=== PATIENT | male | born 1975 | race Hispanic/Latino ===

== ENCOUNTER 2016-10-10 15:24 | Emergency (ER) | payer MEDICAID, OTHER ==
[2016-10-10 15:24] VITALS: BMI 24.3
--- NOTE | 2016-10-10 15:55 | C.PDOC ---
History Of Present Illness 41M c/o feeling "a seizure coming on" since yesterday. he says he feels shaky over his whole body and his left arm "feels like it's locking up." he drinks etoh daily "since I was 10" and says his last drink was yesterday "mid day." he will not say why he hasn't drunk today. denies any other sx. Time Seen by Provider: 10/10/16 15:54 Chief Complaint (Nursing): Substance Abuse Past Medical History Vital Signs: Last Vital Signs Temp 98.8 F 10/10/16 19:38 Pulse 81 10/10/16 19:38 Resp 18 10/10/16 19:38 BP 137/81 10/10/16 19:38 Pulse Ox 97 10/10/16 19:38 - Medical History PMH: Fractures, Seizures Denies: HIV, HTN, Sexually Transmitted Disease - [facility] Procedures ALCOHOL DETOXIFICATION (12/30/14) DETOXIFICATION SERVICES FOR SUBSTANCE ABUSE TREATMENT (01/19/16) DRAINAGE OF R PLEURAL CAV WITH DRAIN DEV, PERC APPROACH (05/24/16) DRAINAGE OF RIGHT LOWER LOBE BRONCHUS, ENDO, DIAGN (05/24/16) INFLUENZA VACCINATION (05/29/14) INSERTION OF ENDOTRACHEAL AIRWAY INTO TRACHEA, VIA OPENING (05/24/16) INSERTION OF INFUSION DEV INTO SUP VENA CAVA, PERC APPROACH (05/24/16) INTRODUCTION OF NUTRITIONAL INTO UP GI, VIA OPENING (05/24/16) RESPIRATORY VENTILATION, GREATER THAN 96 CONSECUTIVE HOURS (05/24/16) VACCINATION NEC (05/29/14) Family History: States: Unknown Family Hx - Social History Hx Tobacco Use: Yes Hx Alcohol Use: Yes Hx Substance Use: No (pt denies) - Immunization History Hx Tetanus Toxoid Vaccination: No Hx Influenza Vaccination: Yes Hx Pneumococcal Vaccination: Yes Review Of Systems Except As Marked, All Systems Reviewed And Found Negative. Constitutional: Negative for: Fever, Weakness Eyes: Negative for: Vision Change ENT: Negative for: Throat Pain Cardiovascular: Negative for: Chest Pain Respiratory: Negative for: Cough, Shortness of Breath Gastrointestinal: Negative for: Nausea, Vomiting, Abdominal Pain Neurological: Positive for: Seizures (hx of), Other (tremor). Negative for: Weakness, Numbness Psych: Negative for: Suicidal ideation Physical Exam - Physical Exam Appears: Non-toxic, No Acute Distress Skin: Warm, Dry Head: Atraumatic Eye(s): bilateral: PERRL Oral Mucosa: Moist Lips: No Swelling Neck: Normal ROM Cardiovascular: Rhythm Regular Respiratory: No Decreased Breath Sounds, No Accessory Muscle Use, No Rales, No Rhonchi, No Wheezing Gastrointestinal/Abdominal: Soft, No Tenderness Extremity: No Swelling Pulses: Left Radial: Normal, Right Radial: Normal Neurological/Psych: Oriented x3, Normal Cranial Nerves, No Cerebellar Signs, Normal Motor, Normal Sensation, Other (general mild resting tremor. no focal deficits. ) ED Course And Treatment O2 Sat by Pulse Oximetry: 97 Medical Decision Making Medical Decision Makin the pt is ambulatory with steady gait. his tremor is resolved after the librium. he is comfortable with dc. follow up and return precautions advised. detox resources provided. Disposition - Disposition Disposition: HOME/ ROUTINE Disposition Time: 21:29 Condition: IMPROVED - Clinical Impression Clinical Impression: Alcohol withdrawal
[2016-10-10 19:39] VITALS: RESP 18
[2016-10-10 21:40] VITALS: BP 128/80; PULSE 76; TEMP 98.9
[2016-10-11 13:53] VITALS: O2SAT 97
== END 2016-10-10 21:54 | disposition home or self-care (01) ==
LOC: C.ER 15:24
DX: F10.230 Alcohol dependence with withdrawal, uncomplicated (principal); Y90.9 Presence of alcohol in blood, level not specified

== ENCOUNTER 2017-03-04 20:48 | Inpatient (IN) | payer MEDICAID, OTHER ==
--- NOTE | 2017-03-04 20:56 | C.PDOC ---
History Of Present Illness patient states he feels very shaky , and that his last drinks were a few beers in the morning. has had these symptoms in the past when he does not drink. Denies any suicidal or homicidal ideation. Pleasant , cooperative. Time Seen by Provider: 03/04/17 20:56 History Per: Patient History/Exam Limitations: no limitations Onset/Duration Of Symptoms: Hrs Current Symptoms Are (Timing): Still Present Suicide/Self Injury Attempted (Context): None Modifying Factor(s): Alcohol Severity: Severe Pain Scale Rating Of: 6 Associated Symptoms: denies: Anger, Anxiety, Depression, Suicidal Plan Involuntary Hold By: None Recent travel outside of the [place]: No Additional History Per: Patient Past Medical History Reviewed: Historical Data, Nursing Documentation, Vital Signs Vital Signs: Last Vital Signs Temp 98.9 F 03/04/17 21:53 Pulse 132 H 03/04/17 23:43 Resp 20 03/04/17 23:43 BP 141/95 H 03/04/17 23:43 Pulse Ox 100 03/04/17 23:43 - Medical History PMH: Fractures, Seizures Denies: HIV, HTN, Chronic Kidney Disease, [facility] Procedures ALCOHOL DETOXIFICATION (12/30/14) DETOXIFICATION SERVICES FOR SUBSTANCE ABUSE TREATMENT (01/19/16) DRAINAGE OF R PLEURAL CAV WITH DRAIN DEV, PERC APPROACH (05/24/16) DRAINAGE OF RIGHT LOWER LOBE BRONCHUS, ENDO, DIAGN (05/24/16) INFLUENZA VACCINATION (05/29/14) INSERTION OF ENDOTRACHEAL AIRWAY INTO TRACHEA, VIA OPENING (05/24/16) INSERTION OF INFUSION DEV INTO SUP VENA CAVA, PERC APPROACH (05/24/16) INTRODUCTION OF NUTRITIONAL INTO UP GI, VIA OPENING (05/24/16) RESPIRATORY VENTILATION, GREATER THAN 96 CONSECUTIVE HOURS (05/24/16) VACCINATION NEC (05/29/14) Family History: States: No Known Family Hx - Social History Hx Tobacco Use: Yes Hx Alcohol Use: Yes Hx Substance Use: No (pt denies) - Immunization History Hx Tetanus Toxoid Vaccination: No Hx Influenza Vaccination: Yes Hx Pneumococcal Vaccination: Yes Review Of Systems Constitutional: Negative for: Fever, Chills Eyes: Negative for: Redness ENT: Negative for: Throat Pain Cardiovascular: Negative for: Chest Pain, Palpitations Respiratory: Negative for: Shortness of Breath Gastrointestinal: Negative for: Nausea, Vomiting, Abdominal Pain Genitourinary: Negative for: Dysuria Musculoskeletal: Negative for: Back Pain Skin: Negative for: Rash Neurological: Negative for: Confusion Psych: Positive for: Withdrawal Physical Exam - Physical Exam Appears: In Acute Distress Skin: Warm, Dry Head: Normacephalic Eye(s): bilateral: Normal Inspection Oral Mucosa: Moist Neck: Supple Chest: Symmetrical Cardiovascular: Rhythm Regular (tachy) Respiratory: No Rales, No Rhonchi, No Wheezing Gastrointestinal/Abdominal: Soft, No Tenderness, No Distention Back: No CVA Tenderness Extremity: No Tenderness Extremity: Bilateral: Atraumatic, Normal Color And Temperature, Normal ROM Pulses: Left Dorsalis Pedis: Normal, Right Dorsalis Pedis: Normal Neurological/Psych: Oriented x3, Normal Speech, Normal Cognition, Other (mild resting tremor, chronic) Gait: Steady ED Course And Treatment - Laboratory Results Result Diagrams: 03/04/17 21:13 03/04/17 21:13 ECG: Interpreted By Me, Viewed By Me ECG Rhythm: Sinus Tachycardia (135), Nonspecific Changes O2 Sat by Pulse Oximetry: 95 Pulse Ox Interpretation: Normal - Radiology CXR: Interpreted by Me, Viewed By Me CXR Interpretation: Yes: Infiltrates (rll). No: Fracture, Pnemothorax Progress Note: spoke with dr jo. will come and see the pt in the ed. joana at bedside Critical Care Time - Critical Care Note Total Time (in mins): 30 Documented critical care: time excludes all time spent performing seperately billable procedures. ED OBSERVATION Date of observation admission: 03/04/17 Time of observation admission: 22:29 - Observation admission statement Patient is being placed in observation because:: acute alcohol intoxication - Goals of Observation Goals of observation are:: sobriety - Progress Note Progress Note: 03/04/17 22:29 vitals stable Disposition Discussed With DrGiorgio: Otis Ramos Comment: accepted the pt on his service and took over the care at 11:21 PM Doctor Will See Patient In The: ED Counseled Patient/Family Regarding: Studies Performed, Diagnosis - Disposition Disposition: HOSPITALIZED Disposition Time: 20:56 Condition: CRITICAL - Clinical Impression Clinical Impression: Pneumonia, Sepsis, Delirium tremens, Thrombocytopenia Decision To Admit - . Patient Diagnosis: Pneumonia, Sepsis, Delirium tremens, Thrombocytopenia
[2017-03-04 20:57] VITALS: BMI 24.4
[2017-03-04] MEDS ORDERED: Sodium Chloride 0.9% 1,000 ML IV ONE ×3 (20:57→23:09)
[2017-03-04] MEDS ORDERED: Sodium Chloride 0.9% 1,000 ML ONE ×3 (21:10→23:30)
[2017-03-04 21:15] LABS: BASO # 0.2 K/uL (0.0-0.2); BASO % 1.2 % (0.0-2.0); HEMATOCRIT 35.3 % (35.0-51.0); LYMPH # 0.2 K/uL (1.0-4.3); LYMPH % 1.4 % (20.0-40.0); MEAN CELL VOLUME 96.2 fL (80.0-94.0); MEAN CORPUSCULAR HEMOGLOBIN 32.5 pg (27.0-31.0); MEAN CORPUSCULAR HGB CONC 33.8 g/dL (33.0-37.0); MEAN PLATELET VOLUME 8.8 fL (7.2-11.7); MONO # 0.7 K/uL (0.0-0.8); MONO % 4.2 % (0.0-10.0); RED CELL DISTRIBUTION WIDTH 14.2 % (11.5-14.5); WHITE BLOOD COUNT 16.4 K/uL (4.8-10.8)
[2017-03-04 21:23] LABS: PLATELET COUNT 46 K/uL (130-400)
[2017-03-04 21:24] LABS: CHLORIDE 94 mmol/L (98-107); POTASSIUM 3.7 mmol/L (3.6-5.2); SODIUM 130 mmol/L (132-148)
[2017-03-04 21:26] LABS: GFR AFRICAN-AMERICAN > 60
[2017-03-04 21:27] LABS: ALB/GLOB RATIO 0.9 (1.0-2.1); ALKALINE PHOSPHATASE 172 U/L (38-126); ALT/SGPT 42 U/L (21-72); AST/SGOT 62 U/L (17-59); BILIRUBIN,TOTAL 0.7 mg/dL (0.2-1.3); BLOOD UREA NITROGEN 3 mg/dL (9-20); CALCIUM 8.6 mg/dl (8.6-10.4); CARBON DIOXIDE 14 mmol/L (22-30); GLUCOSE,RANDOM 114 mg/dL (75-110); TOTAL PROTEIN 7.5 g/dL (6.3-8.3)
[2017-03-04] MEDS ORDERED: Piperacillin/Tazobact 3.375 gm 100 ML IVPB STA (21:27)
[2017-03-04 21:28] LABS: ALCOHOL SERUM 175 mg/dl (0-10)
[2017-03-04] MEDS ORDERED: Piperacillin/Tazobact 3.375 gm 100 ML IVPB ONE (21:36)
[2017-03-04 21:49] LABS: NEUTROPHIL 93 % (50-75); TOTAL CELLS COUNTED 100
[2017-03-04 21:50] LABS: LARGE PLATELETS PRESENT
[2017-03-04 23:06] LABS: VENOUS BLOOD GAS PCO2 29 mmHg (40-60); VENOUS BLOOD PH 7.41 (7.32-7.43)
[2017-03-04] MEDS ORDERED: Vancomycin 1 GM 1 GM/250 ML BAG IVPB SCH (23:15)
[2017-03-04 23:43] LABS: RBC URINE < 1 /hpf (0-3); URINE BILIRUBIN NEGATIVE (NEGATIVE); URINE BLOOD 1+ (NEGATIVE); URINE COLOR Yellow (YELLOW); URINE GLUCOSE (UA) NORMAL (Normal); URINE KETONE NEGATIVE (NEGATIVE); URINE LEUKOCYTE ESTERASE NEG Leu/uL (Negative); URINE PROTEIN 1+ mg/dL (NEGATIVE); URINE UROBILINOGEN NORMAL mg/dL (0.2-1.0); WBC URINE < 1 /hpf (0-5)
[2017-03-05] MEDS ORDERED: Folic Acid 1 MG, Thiamine 100 MG, Multivitamin (MVI) 10 ML in Dextrose 5% In Water 1,00... IV ONE (00:30)
[2017-03-05 00:58] LABS: PHOSPHOROUS 1.8 mg/dL (2.5-4.5)
[2017-03-05 01:00] LABS: MAGNESIUM 0.5 mg/dL (1.6-2.3)
[2017-03-05] MEDS: Sodium Chloride 0.9% 1,000 ML IV SCH ×3 (01:23→20:30)
[2017-03-05] MEDS: Magnesium Sulfate 1 gm in D5W 1 GM/100 ML BAG IVPB SCH ×6 (01:23→15:27)
[2017-03-05 06:26] LABS: ALB/GLOB RATIO 0.9 (1.0-2.1); ALKALINE PHOSPHATASE 139 U/L (38-126); ALT/SGPT 40 U/L (21-72); AST/SGOT 80 U/L (17-59); BILIRUBIN,TOTAL 0.7 mg/dL (0.2-1.3); CALCIUM 8.2 mg/dl (8.6-10.4); CARBON DIOXIDE 18 mmol/L (22-30); CHLORIDE 101 mmol/L (98-107); GFR AFRICAN-AMERICAN > 60; GLUCOSE,RANDOM 91 mg/dL (75-110); MAGNESIUM 1.1 mg/dL (1.6-2.3); PHOSPHOROUS 3.2 mg/dL (2.5-4.5); POTASSIUM 3.5 mmol/L (3.6-5.2); SODIUM 133 mmol/L (132-148); TOTAL PROTEIN 6.4 g/dL (6.3-8.3)
[2017-03-05 06:28] LABS: BASO % 0.2 % (0.0-2.0); LYMPH # 0.5 K/uL (1.0-4.3); LYMPH % 2.4 % (20.0-40.0); MEAN CELL VOLUME 95.9 fL (80.0-94.0); MEAN CORPUSCULAR HEMOGLOBIN 31.9 pg (27.0-31.0); MEAN CORPUSCULAR HGB CONC 33.3 g/dL (33.0-37.0); MEAN PLATELET VOLUME 9.7 fL (7.2-11.7); MONO # 0.9 K/uL (0.0-0.8); MONO % 4.1 % (0.0-10.0); PLATELET COUNT 37 K/uL (130-400)
[2017-03-05 06:34] LABS: BLOOD UREA NITROGEN 2 mg/dL (9-20)
[2017-03-05 08:41] LABS: NEUTROPHIL 69 % (50-75); TOTAL CELLS COUNTED 100
[2017-03-05] MEDS ORDERED: Piperacillin/Tazobact 3.375 GM in Sodium Chloride 100 ML IVPB SCH (10:30)
--- NOTE | 2017-03-05 10:42 | RAD ---
PROCEDURE: CHEST RADIOGRAPH, 1 VIEW HISTORY: fever COMPARISON: Comparison made with prior chest radiograph 06/14/[address] scan chest 06/12/2016. FINDINGS: LUNGS: Residual patchy atelectasis and or infiltrate right lower lobe. Questionable small right-sided effusion. Follow-up CT scan of chest could be performed further evaluation. Suspect mild left basilar atelectasis or scarring however developing left lower lobe infiltrate to be excluded with followup studies. PLEURA: No apparent pneumothorax CARDIOVASCULAR: Normal. OSSEOUS STRUCTURES: No significant abnormalities. VISUALIZED UPPER ABDOMEN: Normal. OTHER FINDINGS: None. IMPRESSION: Residual patchy atelectasis and or infiltrate right lower lobe. Questionable small right-sided effusion. Follow-up scan chest recommended. . Suspect mild left basilar atelectasis or scarring however developing left lower lobe infiltrate to be excluded with followup studies. Note report placed PA review folder followup
[2017-03-05] MEDS: Piperacill/Tazo 3.375gm in Dex 3.375 GM/50 ML BAG IVPB SCH ×3 (12:10→22:00)
--- NOTE | 2017-03-05 13:22 | RAD ---
HISTORY: sepsis COMPARISON: Comparison chest 03/04/2017 at 21:14 hours FINDINGS: LUNGS: Current study reveals interval progression patchy infiltrate in the right mid to lower lung field. . Questionable small right effusion. Suspect minor left basilar atelectasis however developing left lower lobe infiltrate could be excluded followup radiographs PLEURA: As above. There is a thin linear - curvilinear density overlying the right lung apex and may represent of overlying clothing/bed sheet artifact. CARDIOVASCULAR: Normal. OSSEOUS STRUCTURES: No significant abnormalities. VISUALIZED UPPER ABDOMEN: Normal. OTHER FINDINGS: None. IMPRESSION: Interval progression patchy infiltrate in the right mid to lower lung field. . Questionable small right effusion. Suspect minor left basilar atelectasis however developing left lower lobe infiltrate could be excluded followup radiographs. ICU MD Terrance tesfaye informed these findings at approximately 1:15 p.m. with written down and read back verification. Follow-up CT scan could be performed for further evaluation if necessary.
--- NOTE | 2017-03-05 13:34 | CP.PCM.HP ---
Past Patient History - Infectious Disease Hx of Infectious Diseases: None - Past Medical History & Family History Past Medical History?: Yes - Past Social History Smoking Status: Current Some Days Smoker - CARDIAC Hx Hypertension: No - PULMONARY Hx Respiratory Disorders: No - NEUROLOGICAL Hx Neurological Disorder: Yes Hx Seizures: Yes - HEENT Hx HEENT Problems: No - RENAL Hx Chronic Kidney Disease: No - ENDOCRINE/METABOLIC Hx Endocrine Disorders: No - HEMATOLOGICAL/ONCOLOGICAL Hx Blood Disorders: No - INTEGUMENTARY Hx Dermatological Problems: No - MUSCULOSKELETAL/RHEUMATOLOGICAL Hx Musculoskeletal Disorders: Yes Hx Falls: Yes Hx Fractures: Yes - GASTROINTESTINAL Hx Gastrointestinal Disorders: No - GENITOURINARY/GYNECOLOGICAL Hx Genitourinary Disorders: No - PSYCHIATRIC Hx Substance Use: No - SURGICAL HISTORY Hx Surgeries: Yes (R thumb repair ) Hx Orthopedic Surgery: Yes (CLAVICLE, ARM) Other/Comment: EYE SOCKET FX REPAIRED WITH SCREWS - ANESTHESIA Hx Anesthesia: Yes Hx Anesthesia Reactions: No Hx Malignant Hyperthermia: No Has any member of the family had a problem w/ anesthesia?: No Meds Allergies/Adverse Reactions: Allergies Allergy/AdvReac Type Severity Reaction Status Date / Time No Known Allergies Allergy Verified 01/20/16 17:11 Physical Exam - Constitutional Appears: Well - Head Exam Head Exam: ATRAUMATIC, NORMAL INSPECTION, NORMOCEPHALIC - Eye Exam Eye Exam: EOMI, Normal appearance, PERRL Pupil Exam: NORMAL ACCOMODATION, PERRL - ENT Exam ENT Exam: Mucous Membranes Moist, Normal Exam - Neck Exam Neck exam: Positive for: Normal Inspection - Respiratory Exam Respiratory Exam: Decreased Breath Sounds - Cardiovascular Exam Cardiovascular Exam: REGULAR RHYTHM, +S1, +S2 - GI/Abdominal Exam GI & Abdominal Exam: Diminished Bowel Sounds, Soft - Rectal Exam Rectal Exam: Deferred Results - Vital Signs Recent Vital Signs: Last Vital Signs Temp 98.5 F 03/05/17 12:00 Pulse 105 H 03/05/17 12:01 Resp 20 03/05/17 12:01 BP 137/90 03/05/17 12:01 Pulse Ox 98 03/05/17 12:01 - Labs Result Diagrams: 03/05/17 06:07 03/05/17 06:06 Labs: Laboratory Results - last 24 hr 03/04/17 03/04/17 03/05/17 23:37 23:37 00:32 WBC RBC Hgb Hct MCV MCH MCHC RDW Plt Count MPV Neut % (Auto) Lymph % (Auto) [place] % (Auto) Eos % (Auto) Baso % (Auto) Neut # Lymph # [place] # Eos # Baso # Neutrophils % (Manual) Band Neutrophils % Lymphocytes % (Manual) Monocytes % (Manual) Platelet Estimate RBC Morphology Sodium Potassium Chloride Carbon Dioxide Anion Gap BUN Creatinine Est GFR ( Amer) Est GFR (Non-Af Amer) POC Glucose (mg/dL) Random Glucose Lactic Acid Calcium Phosphorus 1.8 L Magnesium 0.5 L* D Total Bilirubin AST ALT Alkaline Phosphatase Total Protein Albumin Globulin Albumin/Globulin Ratio Urine Color Yellow Urine Clarity Clear Urine pH 5.0 Ur Specific [place] 1.006 Urine Protein 1+ H Urine Glucose (UA) Normal Urine Ketones Negative Urine Blood 1+ H Urine Nitrate Negative Urine Bilirubin Negative Urine Urobilinogen Normal Ur Leukocyte Esterase Neg Urine WBC (Auto) < 1 Urine RBC (Auto) < 1 Ur Squamous Epith Cells < 1 Urine Opiates Screen Negative Urine Methadone Screen Negative Ur Barbiturates Screen Negative Ur Phencyclidine Scrn Negative Ur Amphetamines Screen Negative U Benzodiazepines Scrn Negative U Oth Cocaine Metabols Negative U Cannabinoids Screen Negative 03/05/17 03/05/17 03/05/17 02:16 06:06 06:07 WBC 22.0 H RBC 3.55 L Hgb 11.3 L Hct 34.0 L MCV 95.9 H MCH 31.9 H MCHC 33.3 RDW 14.0 Plt Count 37 L MPV 9.7 Neut % (Auto) 93.3 H Lymph % (Auto) 2.4 L [place] % (Auto) 4.1 Eos % (Auto) 0.0 Baso % (Auto) 0.2 Neut # 20.5 H Lymph # 0.5 L [place] # 0.9 H Eos # 0.0 Baso # 0.0 Neutrophils % (Manual) 69 Band Neutrophils % 27 H* Lymphocytes % (Manual) 2 L Monocytes % (Manual) 2 Platelet Estimate Decreased L RBC Morphology Normal Sodium 133 Potassium 3.5 L Chloride 101 Carbon Dioxide 18 L Anion Gap 18 BUN 2 L Creatinine 0.6 L Est GFR ( Amer) > 60 Est GFR (Non-Af Amer) > 60 POC Glucose (mg/dL) Random Glucose 91 Lactic Acid 3.8 H Calcium 8.2 L Phosphorus 3.2 Magnesium 1.1 L Total Bilirubin 0.7 AST 80 H D ALT 40 Alkaline Phosphatase 139 H Total Protein 6.4 Albumin 3.0 L Globulin 3.4 Albumin/Globulin Ratio 0.9 L Urine Color Urine Clarity Urine pH Ur Specific [place] Urine Protein Urine Glucose (UA) Urine Ketones Urine Blood Urine Nitrate Urine Bilirubin Urine Urobilinogen Ur Leukocyte Esterase Urine WBC (Auto) Urine RBC (Auto) Ur Squamous Epith Cells Urine Opiates Screen Urine Methadone Screen Ur Barbiturates Screen Ur Phencyclidine Scrn Ur Amphetamines Screen U Benzodiazepines Scrn U Oth Cocaine Metabols U Cannabinoids Screen 03/05/17 03/05/17 06:20 12:08 WBC RBC Hgb Hct MCV MCH MCHC RDW Plt Count MPV Neut % (Auto) Lymph % (Auto) [place] % (Auto) Eos % (Auto) Baso % (Auto) Neut # Lymph # [place] # Eos # Baso # Neutrophils % (Manual) Band Neutrophils % Lymphocytes % (Manual) Monocytes % (Manual) Platelet Estimate RBC Morphology Sodium Potassium Chloride Carbon Dioxide Anion Gap BUN Creatinine Est GFR ( Amer) Est GFR (Non-Af Amer) POC Glucose (mg/dL) 101 108 Random Glucose Lactic Acid Calcium Phosphorus Magnesium Total Bilirubin AST ALT Alkaline Phosphatase Total Protein Albumin Globulin Albumin/Globulin Ratio Urine Color Urine Clarity Urine pH Ur Specific [place] Urine Protein Urine Glucose (UA) Urine Ketones Urine Blood Urine Nitrate Urine Bilirubin Urine Urobilinogen Ur Leukocyte Esterase Urine WBC (Auto) Urine RBC (Auto) Ur Squamous Epith Cells Urine Opiates Screen Urine Methadone Screen Ur Barbiturates Screen Ur Phencyclidine Scrn Ur Amphetamines Screen U Benzodiazepines Scrn U Oth Cocaine Metabols U Cannabinoids Screen
--- NOTE | 2017-03-05 14:56 | CP.CCUPN ---
<AlejandrapatriceVenice rayaGiorgio - Last Filed: 03/05/17 14:53> CCU Subjective - Physician Review Subjective (Free Text): Patient was seen and examined at bedside in the morning. Patient was in no acute distress and was lethargic. Patient was in and out of sleep, and mumbling in response to questions. Patient reports he vomits daily. Patient denies having chest pain, abdominal pain, fevers, shortness of breath, nausea, and diarrhea. As per nurse, patient is having diarrhea. 03/05/17 14:53 CCU Objective - Vital Signs / Intake & Output Vital Signs (Last 4 hours): Vital Signs Temp Pulse Resp BP Pulse Ox 03/05/17 12:01 105 H 20 137/90 98 03/05/17 12:00 98.5 F 102 H 20 96 03/05/17 11:01 99 H 21 145/100 H 96 03/05/17 11:00 106 H 20 97 Intake and Output (Last 8hrs): Intake & Output 03/04/17 03/05/17 03/05/17 22:59 06:59 14:59 Intake Total 1350 900 Output Total 1900 Balance -550 900 Weight 156 lb 15.506 oz Intake: Intake, IV Amount 1350 900 Left Forearm 600 600 Left Forearm Y-site 300 300 Right Hand 450 Output: Urine 1900 Condom 1600 Urine, Voided 300 Other: Voiding Method Urinal # Voids Condom 160 Urine, Voided 1 # Bowel Movements 1 1 - Physical Exam Physical Exam Limitations: Positive for: Other (lethargic) Head: Positive for: Atraumatic, Normocephalic Extroacular Muscles: Positive for: EOMI Mouth: Positive for: Moist Mucous Membranes Respiratory/Chest: Positive for: Decreased Breath Sounds. Negative for: Clear to Auscultation, Wheezes, Rales Cardiovascular: Positive for: Normal S1, S2, Tachycardic. Negative for: Murmurs Abdomen: Positive for: Normal Bowel Sounds. Negative for: Tenderness, Distention Upper Extremity: Positive for: Normal Inspection. Negative for: Edema Lower Extremity: Positive for: Normal Inspection, NORMAL PULSES. Negative for: Edema Skin: Positive for: Warm, Dry, Normal Color Psychiatric: Positive for: Lethargic. Negative for: Alert, Oriented x 3 ( oriented to place, not time), Normal Concentration - Medications Active Medications: Active Medications Generic Name Dose Route Start Last Admin Trade Name Freq PRN Reason Stop Dose Admin Famotidine 20 mg 03/05/17 10:00 Pepcid IVP Q12 XAVI Folic Acid 1 mg/ Thiamine HCl 1,011.2 mls @ 50 mls/hr 03/05/17 00:30 01:30 100 mg/ Multivitamins/Vitamin IV 03/05/17 20:43 50 mls/hr C 10 ml/ Dextrose .[id number] ONE Administration Sodium Chloride 1,000 mls @ 100 mls/hr 03/05/17 00:30 03/05/17 01:23 Sodium Chloride 0.9% IV 100 mls/hr .Q10H XAVI Administration Vancomycin HCl 1,000 mg/ 250 mls @ 166.6 mls/hr 03/05/17 00:30 03/05/17 00:30 Sodium Chloride IVPB Not Given Q12H XAVI Piperacillin Sod/Tazobactam Sod 3.375 gm in 50 mls @ 100 mls/hr 03/05/17 11: 00 Zosyn 3.375 Gm Iv Premix IVPB Q6H XAVI Lorazepam 2 mg 03/05/17 00:18 03/05/17 06:00 Ativan IVP 2 mg Q2 PRN Administration Anxiety - Patient Studies Lab Studies: Lab Studies 03/05/17 03/05/17 03/05/17 Range/Units 12:08 06:20 06:07 WBC 22.0 H (4.8-10.8) K/uL RBC 3.55 L (4.40-5.90) Mil/uL Hgb 11.3 L (12.0-18.0) g/dL Hct 34.0 L (35.0-51.0) % MCV 95.9 H (80.0-94.0) fL MCH 31.9 H (27.0-31.0) pg MCHC 33.3 (33.0-37.0) g/dL RDW 14.0 (11.5-14.5) % Plt Count 37 L (130-400) K/uL MPV 9.7 (7.2-11.7) fL Neut % (Auto) 93.3 H (50.0-75.0) % Lymph % (Auto) 2.4 L (20.0-40.0) % [place] % (Auto) 4.1 (0.0-10.0) % Eos % (Auto) 0.0 (0.0-4.0) % Baso % (Auto) 0.2 (0.0-2.0) % Neut # 20.5 H (1.8-7.0) K/uL Lymph # 0.5 L (1.0-4.3) K/uL [place] # 0.9 H (0.0-0.8) K/uL Eos # 0.0 (0.0-0.7) K/uL Baso # 0.0 (0.0-0.2) K/uL Neutrophils % (Manual) 69 (50-75) % Band Neutrophils % 27 H* (0-2) % Lymphocytes % (Manual) 2 L (20-40) % Monocytes % (Manual) 2 (0-10) % Platelet Estimate Decreased L (NORMAL) RBC Morphology Normal Sodium (132-148) mmol/L Potassium (3.6-5.2) mmol/L Chloride (98-107) mmol/L Carbon Dioxide (22-30) mmol/L Anion Gap (10-20) BUN (9-20) mg/dL Creatinine (0.8-1.5) MG/DL Est GFR ( Amer) Est GFR (Non-Af Amer) POC Glucose (mg/dL) 108 101 (65-110) mg/dL Random Glucose (75-110) mg/dL Lactic Acid (0.7-2.1) mmol/L Calcium (8.6-10.4) mg/dl Phosphorus (2.5-4.5) mg/dL Magnesium (1.6-2.3) mg/dL Total Bilirubin (0.2-1.3) mg/dL AST (17-59) U/L ALT (21-72) U/L Alkaline Phosphatase (38-126) U/L Total Protein (6.3-8.3) g/dL Albumin (3.5-5.0) g/dL Globulin (2.2-3.9) gm/dL Albumin/Globulin Ratio (1.0-2.1) Urine Color (YELLOW) Urine Clarity (Clear) Urine pH (5.0-8.0) Ur Specific [place] (1.003-1.030) Urine Protein (NEGATIVE) mg/dL Urine Glucose (UA) (Normal) mg/dL Urine Ketones (NEGATIVE) mg/dL Urine Blood (NEGATIVE) Urine Nitrate (NEGATIVE) Urine Bilirubin (NEGATIVE) Urine Urobilinogen (0.2-1.0) mg/dL Ur Leukocyte Esterase (Negative) [place]/uL Urine WBC (Auto) (0-5) /hpf Urine RBC (Auto) (0-3) /hpf Ur Squamous Epith Cells (0-5) /hpf Urine Opiates Screen (NEGATIVE) Urine Methadone Screen (NEGATIVE) Ur Barbiturates Screen (NEGATIVE) Ur Phencyclidine Scrn (NEGATIVE) Ur Amphetamines Screen (NEGATIVE) U Benzodiazepines Scrn (NEGATIVE) U Oth Cocaine Metabols (NEGATIVE) U Cannabinoids Screen (NEGATIVE) 03/05/17 03/05/17 03/05/17 Range/Units 06:06 02:16 00:32 WBC (4.8-10.8) K/uL RBC (4.40-5.90) Mil/uL Hgb (12.0-18.0) g/dL Hct (35.0-51.0) % MCV (80.0-94.0) fL MCH (27.0-31.0) pg MCHC (33.0-37.0) g/dL RDW (11.5-14.5) % Plt Count (130-400) K/uL MPV (7.2-11.7) fL Neut % (Auto) (50.0-75.0) % Lymph % (Auto) (20.0-40.0) % [place] % (Auto) (0.0-10.0) % Eos % (Auto) (0.0-4.0) % Baso % (Auto) (0.0-2.0) % Neut # (1.8-7.0) K/uL Lymph # (1.0-4.3) K/uL [place] # (0.0-0.8) K/uL Eos # (0.0-0.7) K/uL Baso # (0.0-0.2) K/uL Neutrophils % (Manual) (50-75) % Band Neutrophils % (0-2) % Lymphocytes % (Manual) (20-40) % Monocytes % (Manual) (0-10) % Platelet Estimate (NORMAL) RBC Morphology Sodium 133 (132-148) mmol/L Potassium 3.5 L (3.6-5.2) mmol/L Chloride 101 (98-107) mmol/L Carbon Dioxide 18 L (22-30) mmol/L Anion Gap 18 (10-20) BUN 2 L (9-20) mg/dL Creatinine 0.6 L (0.8-1.5) MG/DL Est GFR ( Amer) > 60 Est GFR (Non-Af Amer) > 60 POC Glucose (mg/dL) (65-110) mg/dL Random Glucose 91 (75-110) mg/dL Lactic Acid 3.8 H (0.7-2.1) mmol/L Calcium 8.2 L (8.6-10.4) mg/dl Phosphorus 3.2 1.8 L (2.5-4.5) mg/dL Magnesium 1.1 L 0.5 L* D (1.6-2.3) mg/dL Total Bilirubin 0.7 (0.2-1.3) mg/dL AST 80 H D (17-59) U/L ALT 40 (21-72) U/L Alkaline Phosphatase 139 H (38-126) U/L Total Protein 6.4 (6.3-8.3) g/dL Albumin 3.0 L (3.5-5.0) g/dL Globulin 3.4 (2.2-3.9) gm/dL Albumin/Globulin Ratio 0.9 L (1.0-2.1) Urine Color (YELLOW) Urine Clarity (Clear) Urine pH (5.0-8.0) Ur Specific [place] (1.003-1.030) Urine Protein (NEGATIVE) mg/dL Urine Glucose (UA) (Normal) mg/dL Urine Ketones (NEGATIVE) mg/dL Urine Blood (NEGATIVE) Urine Nitrate (NEGATIVE) Urine Bilirubin (NEGATIVE) Urine Urobilinogen (0.2-1.0) mg/dL Ur Leukocyte Esterase (Negative) [place]/uL Urine WBC (Auto) (0-5) /hpf Urine RBC (Auto) (0-3) /hpf Ur Squamous Epith Cells (0-5) /hpf Urine Opiates Screen (NEGATIVE) Urine Methadone Screen (NEGATIVE) Ur Barbiturates Screen (NEGATIVE) Ur Phencyclidine Scrn (NEGATIVE) Ur Amphetamines Screen (NEGATIVE) U Benzodiazepines Scrn (NEGATIVE) U Oth Cocaine Metabols (NEGATIVE) U Cannabinoids Screen (NEGATIVE) 03/04/17 03/04/17 Range/Units 23:37 23:37 WBC (4.8-10.8) K/uL RBC (4.40-5.90) Mil/uL Hgb (12.0-18.0) g/dL Hct (35.0-51.0) % MCV (80.0-94.0) fL MCH (27.0-31.0) pg MCHC (33.0-37.0) g/dL RDW (11.5-14.5) % Plt Count (130-400) K/uL MPV (7.2-11.7) fL Neut % (Auto) (50.0-75.0) % Lymph % (Auto) (20.0-40.0) % [place] % (Auto) (0.0-10.0) % Eos % (Auto) (0.0-4.0) % Baso % (Auto) (0.0-2.0) % Neut # (1.8-7.0) K/uL Lymph # (1.0-4.3) K/uL [place] # (0.0-0.8) K/uL Eos # (0.0-0.7) K/uL Baso # (0.0-0.2) K/uL Neutrophils % (Manual) (50-75) % Band Neutrophils % (0-2) % Lymphocytes % (Manual) (20-40) % Monocytes % (Manual) (0-10) % Platelet Estimate (NORMAL) RBC Morphology Sodium (132-148) mmol/L Potassium (3.6-5.2) mmol/L Chloride (98-107) mmol/L Carbon Dioxide (22-30) mmol/L Anion Gap (10-20) BUN (9-20) mg/dL Creatinine (0.8-1.5) MG/DL Est GFR ( Amer) Est GFR (Non-Af Amer) POC Glucose (mg/dL) (65-110) mg/dL Random Glucose (75-110) mg/dL Lactic Acid (0.7-2.1) mmol/L Calcium (8.6-10.4) mg/dl Phosphorus (2.5-4.5) mg/dL Magnesium (1.6-2.3) mg/dL Total Bilirubin (0.2-1.3) mg/dL AST (17-59) U/L ALT (21-72) U/L Alkaline Phosphatase (38-126) U/L Total Protein (6.3-8.3) g/dL Albumin (3.5-5.0) g/dL Globulin (2.2-3.9) gm/dL Albumin/Globulin Ratio (1.0-2.1) Urine Color Yellow (YELLOW) Urine Clarity Clear (Clear) Urine pH 5.0 (5.0-8.0) Ur Specific [place] 1.006 (1.003-1.030) Urine Protein 1+ H (NEGATIVE) mg/dL Urine Glucose (UA) Normal (Normal) mg/dL Urine Ketones Negative (NEGATIVE) mg/dL Urine Blood 1+ H (NEGATIVE) Urine Nitrate Negative (NEGATIVE) Urine Bilirubin Negative (NEGATIVE) Urine Urobilinogen Normal (0.2-1.0) mg/dL Ur Leukocyte Esterase Neg (Negative) [place]/uL Urine WBC (Auto) < 1 (0-5) /hpf Urine RBC (Auto) < 1 (0-3) /hpf Ur Squamous Epith Cells < 1 (0-5) /hpf Urine Opiates Screen Negative (NEGATIVE) Urine Methadone Screen Negative (NEGATIVE) Ur Barbiturates Screen Negative (NEGATIVE) Ur Phencyclidine Scrn Negative (NEGATIVE) Ur Amphetamines Screen Negative (NEGATIVE) U Benzodiazepines Scrn Negative (NEGATIVE) U Oth Cocaine Metabols Negative (NEGATIVE) U Cannabinoids Screen Negative (NEGATIVE) Laboratory Results - last 24 hr 03/04/17 03/04/17 03/05/17 23:37 23:37 00:32 WBC RBC Hgb Hct MCV MCH MCHC RDW Plt Count MPV Neut % (Auto) Lymph % (Auto) [place] % (Auto) Eos % (Auto) Baso % (Auto) Neut # Lymph # [place] # Eos # Baso # Neutrophils % (Manual) Band Neutrophils % Lymphocytes % (Manual) Monocytes % (Manual) Platelet Estimate RBC Morphology Sodium Potassium Chloride Carbon Dioxide Anion Gap BUN Creatinine Est GFR ( Amer) Est GFR (Non-Af Amer) POC Glucose (mg/dL) Random Glucose Lactic Acid Calcium Phosphorus 1.8 L Magnesium 0.5 L* D Total Bilirubin AST ALT Alkaline Phosphatase Total Protein Albumin Globulin Albumin/Globulin Ratio Urine Color Yellow Urine Clarity Clear Urine pH 5.0 Ur Specific [place] 1.006 Urine Protein 1+ H Urine Glucose (UA) Normal Urine Ketones Negative Urine Blood 1+ H Urine Nitrate Negative Urine Bilirubin Negative Urine Urobilinogen Normal Ur Leukocyte Esterase Neg Urine WBC (Auto) < 1 Urine RBC (Auto) < 1 Ur Squamous Epith Cells < 1 Urine Opiates Screen Negative Urine Methadone Screen Negative Ur Barbiturates Screen Negative Ur Phencyclidine Scrn Negative Ur Amphetamines Screen Negative U Benzodiazepines Scrn Negative U Oth Cocaine Metabols Negative U Cannabinoids Screen Negative 03/05/17 03/05/17 03/05/17 02:16 06:06 06:07 WBC 22.0 H RBC 3.55 L Hgb 11.3 L Hct 34.0 L MCV 95.9 H MCH 31.9 H MCHC 33.3 RDW 14.0 Plt Count 37 L MPV 9.7 Neut % (Auto) 93.3 H Lymph % (Auto) 2.4 L [place] % (Auto) 4.1 Eos % (Auto) 0.0 Baso % (Auto) 0.2 Neut # 20.5 H Lymph # 0.5 L [place] # 0.9 H Eos # 0.0 Baso # 0.0 Neutrophils % (Manual) 69 Band Neutrophils % 27 H* Lymphocytes % (Manual) 2 L Monocytes % (Manual) 2 Platelet Estimate Decreased L RBC Morphology Normal Sodium 133 Potassium 3.5 L Chloride 101 Carbon Dioxide 18 L Anion Gap 18 BUN 2 L Creatinine 0.6 L Est GFR ( Amer) > 60 Est GFR (Non-Af Amer) > 60 POC Glucose (mg/dL) Random Glucose 91 Lactic Acid 3.8 H Calcium 8.2 L Phosphorus 3.2 Magnesium 1.1 L Total Bilirubin 0.7 AST 80 H D ALT 40 Alkaline Phosphatase 139 H Total Protein 6.4 Albumin 3.0 L Globulin 3.4 Albumin/Globulin Ratio 0.9 L Urine Color Urine Clarity Urine pH Ur Specific [place] Urine Protein Urine Glucose (UA) Urine Ketones Urine Blood Urine Nitrate Urine Bilirubin Urine Urobilinogen Ur Leukocyte Esterase Urine WBC (Auto) Urine RBC (Auto) Ur Squamous Epith Cells Urine Opiates Screen Urine Methadone Screen Ur Barbiturates Screen Ur Phencyclidine Scrn Ur Amphetamines Screen U Benzodiazepines Scrn U Oth Cocaine Metabols U Cannabinoids Screen 03/05/17 03/05/17 06:20 12:08 WBC RBC Hgb Hct MCV MCH MCHC RDW Plt Count MPV Neut % (Auto) Lymph % (Auto) [place] % (Auto) Eos % (Auto) Baso % (Auto) Neut # Lymph # [place] # Eos # Baso # Neutrophils % (Manual) Band Neutrophils % Lymphocytes % (Manual) Monocytes % (Manual) Platelet Estimate RBC Morphology Sodium Potassium Chloride Carbon Dioxide Anion Gap BUN Creatinine Est GFR ( Amer) Est GFR (Non-Af Amer) POC Glucose (mg/dL) 101 108 Random Glucose Lactic Acid Calcium Phosphorus Magnesium Total Bilirubin AST ALT Alkaline Phosphatase Total Protein Albumin Globulin Albumin/Globulin Ratio Urine Color Urine Clarity Urine pH Ur Specific [place] Urine Protein Urine Glucose (UA) Urine Ketones Urine Blood Urine Nitrate Urine Bilirubin Urine Urobilinogen Ur Leukocyte Esterase Urine WBC (Auto) Urine RBC (Auto) Ur Squamous Epith Cells Urine Opiates Screen Urine Methadone Screen Ur Barbiturates Screen Ur Phencyclidine Scrn Ur Amphetamines Screen U Benzodiazepines Scrn U Oth Cocaine Metabols U Cannabinoids Screen Fingerstick Blood Sugar Results: 108 Review of Systems - Constitutional Constitutional: absent: Fever - Cardiovascular Cardiovascular: absent: Chest Pain, Dyspnea - Respiratory Respiratory: absent: Dyspnea - Gastrointestinal Gastrointestinal: Vomiting. absent: Abdominal Pain, Constipation, Diarrhea, Nausea - Genitourinary Genitourinary: absent: Dysuria - Neurological Neurological: absent: Dizziness, Headaches Critical Care Progress Note - Nutrition Nutrition: Nutrition Category Date Time Status NPO Diet [DIET] Diets 03/05/17 Breakfast Active Assessment/Plan - Assessment and Plan (Free Text) Assessment: 41 year old male with past medical history of alcoholism, seizures secondary to alcohol withdrawal, pneumonia, and electrolyte imbalance, presented to the ED with tremors, DTs, and was admitted as Code Sepsis. Patient's last drink was the morning before going to ED. Neuro: lethargic, oriented to person, place, but not time Pulm: Sepsis, likely secondary to pneumonia - CXR: patchy infiltrate in right mid to lower lung field. possible small right effusion; suspect minor left basilar atelectasis, possible developing left lower lobe infiltrate CV: - Monitor vitals - ECHO: f/u (r/o infectious endocarditis) - IV Fluids + Multivitamin/ Folic Acid/Thiamine Endo: no acute issues - Monitor blood glucose GI: NPO - As per nurse, Diarrhea: f/u C Diff - Pepcid Heme: Thrombocytopenia - Platelet count decreasing, 03/05 count is 37 - Monitor H/H/platelets Renal: - Monitor renal function ID: CODE Sepsis - Bandemia: 27 - Continue Zosyn, Vanco - Blood cx: f/u Psych: Alcohol withdrawal/ DTs - Alcohol: 175 - Ativan - Monitor - Psychiatry consulted: Dr. Skinner, help appreciated Prophylaxis: - DVT: SCDs; C/I due to thrombocytopenia - GI: pepcid <Zacarias Carlos - Last Filed: 03/05/17 19:56> CCU Objective - Vital Signs / Intake & Output Vital Signs (Last 4 hours): Vital Signs Temp Pulse Resp BP Pulse Ox 03/05/17 18:01 105 H 23 129/91 H 96 03/05/17 18:00 104 H 23 96 03/05/17 17:01 103 H 22 133/88 92 L 03/05/17 17:00 102 H 24 93 L 03/05/17 16:01 98 H 22 136/92 H 97 03/05/17 16:00 97.3 F L 100 H 23 97 Intake and Output (Last 8hrs): Intake & Output 03/05/17 03/05/17 03/05/17 06:59 14:59 22:59 Intake Total 1350 1175 575 Output Total 1900 Balance -550 1175 575 Weight 156 lb 15.506 oz Intake: Intake, IV Amount 1350 1175 575 Left Forearm 600 775 375 Left Forearm Y-site 300 400 200 Right Hand 450 Output: Urine 1900 Condom 1600 Urine, Voided 300 Other: Voiding Method Urinal # Voids Condom 130 80 Urine, Voided 1 # Bowel Movements 1 1 1 - Medications Active Medications: Active Medications Generic Name Dose Route Start Last Admin Trade Name Freq PRN Reason Stop Dose Admin Famotidine 20 mg 03/05/17 10:00 03/05/17 11:00 Pepcid IVP 20 mg Q12 XAVI Administration Folic Acid 1 mg/ Thiamine HCl 1,011.2 mls @ 50 mls/hr 03/05/17 00:30 01:30 100 mg/ Multivitamins/Vitamin IV 03/05/17 20:43 50 mls/hr C 10 ml/ Dextrose .[id number] ONE Administration Sodium Chloride 1,000 mls @ 100 mls/hr 03/05/17 00:30 03/05/17 17:53 Sodium Chloride 0.9% IV 100 mls/hr .Q10H XAVI Administration Vancomycin HCl 1,000 mg/ 250 mls @ 166.6 mls/hr 03/05/17 00:30 03/05/17 13:00 Sodium Chloride IVPB 166.6 mls/hr Q12H XAVI Administration Piperacillin Sod/Tazobactam Sod 3.375 gm in 50 mls @ 100 mls/hr 03/05/17 11: 00 03/05/17 17:51 Zosyn 3.375 Gm Iv Premix IVPB 100 mls/hr Q6H XAVI Administration Potassium Chloride 20 meq in 100 mls @ 50 mls/hr 03/05/17 19:44 Potassium Chloride 20 Meq/100 Ml IVPB 03/05/17 21:43 ONCE ONE Lorazepam 2 mg 03/05/17 00:18 03/05/17 19:45 Ativan IVP 2 mg Q2 PRN Administration Anxiety - Patient Studies Lab Studies: Lab Studies 03/05/17 03/05/17 03/05/17 Range/Units 17:51 15:30 12:08 WBC (4.8-10.8) K/uL RBC (4.40-5.90) Mil/uL Hgb (12.0-18.0) g/dL Hct (35.0-51.0) % MCV (80.0-94.0) fL MCH (27.0-31.0) pg MCHC (33.0-37.0) g/dL RDW (11.5-14.5) % Plt Count (130-400) K/uL MPV (7.2-11.7) fL Neut % (Auto) (50.0-75.0) % Lymph % (Auto) (20.0-40.0) % [place] % (Auto) (0.0-10.0) % Eos % (Auto) (0.0-4.0) % Baso % (Auto) (0.0-2.0) % Neut # (1.8-7.0) K/uL Lymph # (1.0-4.3) K/uL [place] # (0.0-0.8) K/uL Eos # (0.0-0.7) K/uL Baso # (0.0-0.2) K/uL Neutrophils % (Manual) (50-75) % Band Neutrophils % (0-2) % Lymphocytes % (Manual) (20-40) % Monocytes % (Manual) (0-10) % Platelet Estimate (NORMAL) RBC Morphology Sodium (132-148) mmol/L Potassium (3.6-5.2) mmol/L Chloride (98-107) mmol/L Carbon Dioxide (22-30) mmol/L Anion Gap (10-20) BUN (9-20) mg/dL Creatinine (0.8-1.5) MG/DL Est GFR ( Amer) Est GFR (Non-Af Amer) POC Glucose (mg/dL) 95 108 (65-110) mg/dL Random Glucose (75-110) mg/dL Lactic Acid (0.7-2.1) mmol/L Calcium (8.6-10.4) mg/dl Phosphorus (2.5-4.5) mg/dL Magnesium (1.6-2.3) mg/dL Total Bilirubin (0.2-1.3) mg/dL AST (17-59) U/L ALT (21-72) U/L Alkaline Phosphatase (38-126) U/L Total Protein (6.3-8.3) g/dL Albumin (3.5-5.0) g/dL Globulin (2.2-3.9) gm/dL Albumin/Globulin Ratio (1.0-2.1) Urine Color (YELLOW) Urine Clarity (Clear) Urine pH (5.0-8.0) Ur Specific [place] (1.003-1.030) Urine Protein (NEGATIVE) mg/dL Urine Glucose (UA) (Normal) mg/dL Urine Ketones (NEGATIVE) mg/dL Urine Blood (NEGATIVE) Urine Nitrate (NEGATIVE) Urine Bilirubin (NEGATIVE) Urine Urobilinogen (0.2-1.0) mg/dL Ur Leukocyte Esterase (Negative) [place]/uL Urine WBC (Auto) (0-5) /hpf Urine RBC (Auto) (0-3) /hpf Ur Squamous Epith Cells (0-5) /hpf Urine Opiates Screen (NEGATIVE) Urine Methadone Screen (NEGATIVE) Ur Barbiturates Screen (NEGATIVE) Ur Phencyclidine Scrn (NEGATIVE) Ur Amphetamines Screen (NEGATIVE) U Benzodiazepines Scrn (NEGATIVE) U Oth Cocaine Metabols (NEGATIVE) U Cannabinoids Screen (NEGATIVE) C. difficile Ag & Toxin Negative (NEGATIVE) 03/05/17 03/05/17 03/05/17 Range/Units 06:20 06:07 06:06 WBC 22.0 H (4.8-10.8) K/uL RBC 3.55 L (4.40-5.90) Mil/uL Hgb 11.3 L (12.0-18.0) g/dL Hct 34.0 L (35.0-51.0) % MCV 95.9 H (80.0-94.0) fL MCH 31.9 H (27.0-31.0) pg MCHC 33.3 (33.0-37.0) g/dL RDW 14.0 (11.5-14.5) % Plt Count 37 L (130-400) K/uL MPV 9.7 (7.2-11.7) fL Neut % (Auto) 93.3 H (50.0-75.0) % Lymph % (Auto) 2.4 L (20.0-40.0) % [place] % (Auto) 4.1 (0.0-10.0) % Eos % (Auto) 0.0 (0.0-4.0) % Baso % (Auto) 0.2 (0.0-2.0) % Neut # 20.5 H (1.8-7.0) K/uL Lymph # 0.5 L (1.0-4.3) K/uL [place] # 0.9 H (0.0-0.8) K/uL Eos # 0.0 (0.0-0.7) K/uL Baso # 0.0 (0.0-0.2) K/uL Neutrophils % (Manual) 69 (50-75) % Band Neutrophils % 27 H* (0-2) % Lymphocytes % (Manual) 2 L (20-40) % Monocytes % (Manual) 2 (0-10) % Platelet Estimate Decreased L (NORMAL) RBC Morphology Normal Sodium 133 (132-148) mmol/L Potassium 3.5 L (3.6-5.2) mmol/L Chloride 101 (98-107) mmol/L Carbon Dioxide 18 L (22-30) mmol/L Anion Gap 18 (10-20) BUN 2 L (9-20) mg/dL Creatinine 0.6 L (0.8-1.5) MG/DL Est GFR ( Amer) > 60 Est GFR (Non-Af Amer) > 60 POC Glucose (mg/dL) 101 (65-110) mg/dL Random Glucose 91 (75-110) mg/dL Lactic Acid (0.7-2.1) mmol/L Calcium 8.2 L (8.6-10.4) mg/dl Phosphorus 3.2 (2.5-4.5) mg/dL Magnesium 1.1 L (1.6-2.3) mg/dL Total Bilirubin 0.7 (0.2-1.3) mg/dL AST 80 H D (17-59) U/L ALT 40 (21-72) U/L Alkaline Phosphatase 139 H (38-126) U/L Total Protein 6.4 (6.3-8.3) g/dL Albumin 3.0 L (3.5-5.0) g/dL Globulin 3.4 (2.2-3.9) gm/dL Albumin/Globulin Ratio 0.9 L (1.0-2.1) Urine Color (YELLOW) Urine Clarity (Clear) Urine pH (5.0-8.0) Ur Specific [place] (1.003-1.030) Urine Protein (NEGATIVE) mg/dL Urine Glucose (UA) (Normal) mg/dL Urine Ketones (NEGATIVE) mg/dL Urine Blood (NEGATIVE) Urine Nitrate (NEGATIVE) Urine Bilirubin (NEGATIVE) Urine Urobilinogen (0.2-1.0) mg/dL Ur Leukocyte Esterase (Negative) [place]/uL Urine WBC (Auto) (0-5) /hpf Urine RBC (Auto) (0-3) /hpf Ur Squamous Epith Cells (0-5) /hpf Urine Opiates Screen (NEGATIVE) Urine Methadone Screen (NEGATIVE) Ur Barbiturates Screen (NEGATIVE) Ur Phencyclidine Scrn (NEGATIVE) Ur Amphetamines Screen (NEGATIVE) U Benzodiazepines Scrn (NEGATIVE) U Oth Cocaine Metabols (NEGATIVE) U Cannabinoids Screen (NEGATIVE) C. difficile Ag & Toxin (NEGATIVE) 03/05/17 03/05/17 03/04/17 Range/Units 02:16 00:32 23:37 WBC (4.8-10.8) K/uL RBC (4.40-5.90) Mil/uL Hgb (12.0-18.0) g/dL Hct (35.0-51.0) % MCV (80.0-94.0) fL MCH (27.0-31.0) pg MCHC (33.0-37.0) g/dL RDW (11.5-14.5) % Plt Count (130-400) K/uL MPV (7.2-11.7) fL Neut % (Auto) (50.0-75.0) % Lymph % (Auto) (20.0-40.0) % [place] % (Auto) (0.0-10.0) % Eos % (Auto) (0.0-4.0) % Baso % (Auto) (0.0-2.0) % Neut # (1.8-7.0) K/uL Lymph # (1.0-4.3) K/uL [place] # (0.0-0.8) K/uL Eos # (0.0-0.7) K/uL Baso # (0.0-0.2) K/uL Neutrophils % (Manual) (50-75) % Band Neutrophils % (0-2) % Lymphocytes % (Manual) (20-40) % Monocytes % (Manual) (0-10) % Platelet Estimate (NORMAL) RBC Morphology Sodium (132-148) mmol/L Potassium (3.6-5.2) mmol/L Chloride (98-107) mmol/L Carbon Dioxide (22-30) mmol/L Anion Gap (10-20) BUN (9-20) mg/dL Creatinine (0.8-1.5) MG/DL Est GFR ( Amer) Est GFR (Non-Af Amer) POC Glucose (mg/dL) (65-110) mg/dL Random Glucose (75-110) mg/dL Lactic Acid 3.8 H (0.7-2.1) mmol/L Calcium (8.6-10.4) mg/dl Phosphorus 1.8 L (2.5-4.5) mg/dL Magnesium 0.5 L* D (1.6-2.3) mg/dL Total Bilirubin (0.2-1.3) mg/dL AST (17-59) U/L ALT (21-72) U/L Alkaline Phosphatase (38-126) U/L Total Protein (6.3-8.3) g/dL Albumin (3.5-5.0) g/dL Globulin (2.2-3.9) gm/dL Albumin/Globulin Ratio (1.0-2.1) Urine Color (YELLOW) Urine Clarity (Clear) Urine pH (5.0-8.0) Ur Specific [place] (1.003-1.030) Urine Protein (NEGATIVE) mg/dL Urine Glucose (UA) (Normal) mg/dL Urine Ketones (NEGATIVE) mg/dL Urine Blood (NEGATIVE) Urine Nitrate (NEGATIVE) Urine Bilirubin (NEGATIVE) Urine Urobilinogen (0.2-1.0) mg/dL Ur Leukocyte Esterase (Negative) [place]/uL Urine WBC (Auto) (0-5) /hpf Urine RBC (Auto) (0-3) /hpf Ur Squamous Epith Cells (0-5) /hpf Urine Opiates Screen Negative (NEGATIVE) Urine Methadone Screen Negative (NEGATIVE) Ur Barbiturates Screen Negative (NEGATIVE) Ur Phencyclidine Scrn Negative (NEGATIVE) Ur Amphetamines Screen Negative (NEGATIVE) U Benzodiazepines Scrn Negative (NEGATIVE) U Oth Cocaine Metabols Negative (NEGATIVE) U Cannabinoids Screen Negative (NEGATIVE) C. difficile Ag & Toxin (NEGATIVE) 03/04/17 Range/Units 23:37 WBC (4.8-10.8) K/uL RBC (4.40-5.90) Mil/uL Hgb (12.0-18.0) g/dL Hct (35.0-51.0) % MCV (80.0-94.0) fL MCH (27.0-31.0) pg MCHC (33.0-37.0) g/dL RDW (11.5-14.5) % Plt Count (130-400) K/uL MPV (7.2-11.7) fL Neut % (Auto) (50.0-75.0) % Lymph % (Auto) (20.0-40.0) % [place] % (Auto) (0.0-10.0) % Eos % (Auto) (0.0-4.0) % Baso % (Auto) (0.0-2.0) % Neut # (1.8-7.0) K/uL Lymph # (1.0-4.3) K/uL [place] # (0.0-0.8) K/uL Eos # (0.0-0.7) K/uL Baso # (0.0-0.2) K/uL Neutrophils % (Manual) (50-75) % Band Neutrophils % (0-2) % Lymphocytes % (Manual) (20-40) % Monocytes % (Manual) (0-10) % Platelet Estimate (NORMAL) RBC Morphology Sodium (132-148) mmol/L Potassium (3.6-5.2) mmol/L Chloride (98-107) mmol/L Carbon Dioxide (22-30) mmol/L Anion Gap (10-20) BUN (9-20) mg/dL Creatinine (0.8-1.5) MG/DL Est GFR ( Amer) Est GFR (Non-Af Amer) POC Glucose (mg/dL) (65-110) mg/dL Random Glucose (75-110) mg/dL Lactic Acid (0.7-2.1) mmol/L Calcium (8.6-10.4) mg/dl Phosphorus (2.5-4.5) mg/dL Magnesium (1.6-2.3) mg/dL Total Bilirubin (0.2-1.3) mg/dL AST (17-59) U/L ALT (21-72) U/L Alkaline Phosphatase (38-126) U/L Total Protein (6.3-8.3) g/dL Albumin (3.5-5.0) g/dL Globulin (2.2-3.9) gm/dL Albumin/Globulin Ratio (1.0-2.1) Urine Color Yellow (YELLOW) Urine Clarity Clear (Clear) Urine pH 5.0 (5.0-8.0) Ur Specific [place] 1.006 (1.003-1.030) Urine Protein 1+ H (NEGATIVE) mg/dL Urine Glucose (UA) Normal (Normal) mg/dL Urine Ketones Negative (NEGATIVE) mg/dL Urine Blood 1+ H (NEGATIVE) Urine Nitrate Negative (NEGATIVE) Urine Bilirubin Negative (NEGATIVE) Urine Urobilinogen Normal (0.2-1.0) mg/dL Ur Leukocyte Esterase Neg (Negative) [place]/uL Urine WBC (Auto) < 1 (0-5) /hpf Urine RBC (Auto) < 1 (0-3) /hpf Ur Squamous Epith Cells < 1 (0-5) /hpf Urine Opiates Screen (NEGATIVE) Urine Methadone Screen (NEGATIVE) Ur Barbiturates Screen (NEGATIVE) Ur Phencyclidine Scrn (NEGATIVE) Ur Amphetamines Screen (NEGATIVE) U Benzodiazepines Scrn (NEGATIVE) U Oth Cocaine Metabols (NEGATIVE) U Cannabinoids Screen (NEGATIVE) C. difficile Ag & Toxin (NEGATIVE) Laboratory Results - last 24 hr 03/04/17 03/04/17 03/05/17 23:37 23:37 00:32 WBC RBC Hgb Hct MCV MCH MCHC RDW Plt Count MPV Neut % (Auto) Lymph % (Auto) [place] % (Auto) Eos % (Auto) Baso % (Auto) Neut # Lymph # [place] # Eos # Baso # Neutrophils % (Manual) Band Neutrophils % Lymphocytes % (Manual) Monocytes % (Manual) Platelet Estimate RBC Morphology Sodium Potassium Chloride Carbon Dioxide Anion Gap BUN Creatinine Est GFR ( Amer) Est GFR (Non-Af Amer) POC Glucose (mg/dL) Random Glucose Lactic Acid Calcium Phosphorus 1.8 L Magnesium 0.5 L* D Total Bilirubin AST ALT Alkaline Phosphatase Total Protein Albumin Globulin Albumin/Globulin Ratio Urine Color Yellow Urine Clarity Clear Urine pH 5.0 Ur Specific [place] 1.006 Urine Protein 1+ H Urine Glucose (UA) Normal Urine Ketones Negative Urine Blood 1+ H Urine Nitrate Negative Urine Bilirubin Negative Urine Urobilinogen Normal Ur Leukocyte Esterase Neg Urine WBC (Auto) < 1 Urine RBC (Auto) < 1 Ur Squamous Epith Cells < 1 Urine Opiates Screen Negative Urine Methadone Screen Negative Ur Barbiturates Screen Negative Ur Phencyclidine Scrn Negative Ur Amphetamines Screen Negative U Benzodiazepines Scrn Negative U Oth Cocaine Metabols Negative U Cannabinoids Screen Negative C. difficile Ag & Toxin 03/05/17 03/05/17 03/05/17 02:16 06:06 06:07 WBC 22.0 H RBC 3.55 L Hgb 11.3 L Hct 34.0 L MCV 95.9 H MCH 31.9 H MCHC 33.3 RDW 14.0 Plt Count 37 L MPV 9.7 Neut % (Auto) 93.3 H Lymph % (Auto) 2.4 L [place] % (Auto) 4.1 Eos % (Auto) 0.0 Baso % (Auto) 0.2 Neut # 20.5 H Lymph # 0.5 L [place] # 0.9 H Eos # 0.0 Baso # 0.0 Neutrophils % (Manual) 69 Band Neutrophils % 27 H* Lymphocytes % (Manual) 2 L Monocytes % (Manual) 2 Platelet Estimate Decreased L RBC Morphology Normal Sodium 133 Potassium 3.5 L Chloride 101 Carbon Dioxide 18 L Anion Gap 18 BUN 2 L Creatinine 0.6 L Est GFR ( Amer) > 60 Est GFR (Non-Af Amer) > 60 POC Glucose (mg/dL) Random Glucose 91 Lactic Acid 3.8 H Calcium 8.2 L Phosphorus 3.2 Magnesium 1.1 L Total Bilirubin 0.7 AST 80 H D ALT 40 Alkaline Phosphatase 139 H Total Protein 6.4 Albumin 3.0 L Globulin 3.4 Albumin/Globulin Ratio 0.9 L Urine Color Urine Clarity Urine pH Ur Specific [place] Urine Protein Urine Glucose (UA) Urine Ketones Urine Blood Urine Nitrate Urine Bilirubin Urine Urobilinogen Ur Leukocyte Esterase Urine WBC (Auto) Urine RBC (Auto) Ur Squamous Epith Cells Urine Opiates Screen Urine Methadone Screen Ur Barbiturates Screen Ur Phencyclidine Scrn Ur Amphetamines Screen U Benzodiazepines Scrn U Oth Cocaine Metabols U Cannabinoids Screen C. difficile Ag & Toxin 03/05/17 03/05/17 03/05/17 06:20 12:08 15:30 WBC RBC Hgb Hct MCV MCH MCHC RDW Plt Count MPV Neut % (Auto) Lymph % (Auto) [place] % (Auto) Eos % (Auto) Baso % (Auto) Neut # Lymph # [place] # Eos # Baso # Neutrophils % (Manual) Band Neutrophils % Lymphocytes % (Manual) Monocytes % (Manual) Platelet Estimate RBC Morphology Sodium Potassium Chloride Carbon Dioxide Anion Gap BUN Creatinine Est GFR ( Amer) Est GFR (Non-Af Amer) POC Glucose (mg/dL) 101 108 Random Glucose Lactic Acid Calcium Phosphorus Magnesium Total Bilirubin AST ALT Alkaline Phosphatase Total Protein Albumin Globulin Albumin/Globulin Ratio Urine Color Urine Clarity Urine pH Ur Specific [place] Urine Protein Urine Glucose (UA) Urine Ketones Urine Blood Urine Nitrate Urine Bilirubin Urine Urobilinogen Ur Leukocyte Esterase Urine WBC (Auto) Urine RBC (Auto) Ur Squamous Epith Cells Urine Opiates Screen Urine Methadone Screen Ur Barbiturates Screen Ur Phencyclidine Scrn Ur Amphetamines Screen U Benzodiazepines Scrn U Oth Cocaine Metabols U Cannabinoids Screen C. difficile Ag & Toxin Negative 03/05/17 17:51 WBC RBC Hgb Hct MCV MCH MCHC RDW Plt Count MPV Neut % (Auto) Lymph % (Auto) [place] % (Auto) Eos % (Auto) Baso % (Auto) Neut # Lymph # [place] # Eos # Baso # Neutrophils % (Manual) Band Neutrophils % Lymphocytes % (Manual) Monocytes % (Manual) Platelet Estimate RBC Morphology Sodium Potassium Chloride Carbon Dioxide Anion Gap BUN Creatinine Est GFR ( Amer) Est GFR (Non-Af Amer) POC Glucose (mg/dL) 95 Random Glucose Lactic Acid Calcium Phosphorus Magnesium Total Bilirubin AST ALT Alkaline Phosphatase Total Protein Albumin Globulin Albumin/Globulin Ratio Urine Color Urine Clarity Urine pH Ur Specific [place] Urine Protein Urine Glucose (UA) Urine Ketones Urine Blood Urine Nitrate Urine Bilirubin Urine Urobilinogen Ur Leukocyte Esterase Urine WBC (Auto) Urine RBC (Auto) Ur Squamous Epith Cells Urine Opiates Screen Urine Methadone Screen Ur Barbiturates Screen Ur Phencyclidine Scrn Ur Amphetamines Screen U Benzodiazepines Scrn U Oth Cocaine Metabols U Cannabinoids Screen C. difficile Ag & Toxin Critical Care Progress Note - Nutrition Nutrition: Nutrition Category Date Time Status NPO Diet [DIET] Diets 03/05/17 Breakfast Active Attending/Attestation - Attestation I have personally seen and examined this patient.: Yes I have fully participated in the care of the patient.: Yes I have reviewed all pertinent clinical information: Yes Notes (Text): 03/05/17 19:55 Patient admitted with acute pneumonia. I'll called withdrawal. Overall prognosis is guarded. IV antibiotic. Patient inDTs watch. Will follow the patient.
--- NOTE | 2017-03-05 15:20 | PCM.PSYCH ---
Initial Psychiatric Evaluation - Initial Psychiatric Evaluation Type of Admission: Voluntary Chief Complaint (in patient's own words): "I need help" History of Present Illness and Precipitating Events: Pt is a 41 y.o M admitted for alcohol use and seizures. Pt reports drinking every day since age 10. Pt was interviewed at bedside and was lethargic on interview and could not quantify how much he drinks daily. Pt reports having been to an outpatient detox facility multiple times in the past to 2 different facilities. Pt denies other drug use. Pt reports smoking cigarettes but did not quantify how much daily. Pt denies suicidal ideations and auditory visual hallucinations. Uncle of pt was interviewed after speaking with pt to collect additional information. Per uncle, pt has been in the ICU multiple times and says the pt has short term memory loss and "his brain is full of water." Pt is reported to consume 12 cans of beer per day. Pt's uncle reports often finding pt drunk in the morning when he wakes up because pt was drinking all night. Psychiatric Hx: Denies Other Medical Hx: None Social Hx: Pt is and has 2 kids, ages 5 and 7. Pt's ex- was a prosecutor in the state [facility] and was to pt for 14 yrs but pt due to his alcohol use. Pt is not working currently and is on disability. Uncle reports that pt is going to be evicted from his house in 2 days on Sunday. Family Hx: Uncle reports that pt has a sister who is a drug addict but not one has seen the sister in 5 years. Current Medications: Active Medications Generic Name Dose Route Start Last Admin Trade Name Elena PRN Reason Stop Dose Admin Famotidine 20 mg 03/05/17 10:00 Pepcid IVP Q12 XAVI Folic Acid 1 mg/ Thiamine HCl 1,011.2 mls @ 50 mls/hr 03/05/17 00:30 01:30 100 mg/ Multivitamins/Vitamin IV 03/05/17 20:43 50 mls/hr C 10 ml/ Dextrose .[id number] ONE Administration Sodium Chloride 1,000 mls @ 100 mls/hr 03/05/17 00:30 03/05/17 01:23 Sodium Chloride 0.9% IV 100 mls/hr .Q10H XAVI Administration Vancomycin HCl 1,000 mg/ 250 mls @ 166.6 mls/hr 03/05/17 00:30 03/05/17 00:30 Sodium Chloride IVPB Not Given Q12H XAVI Piperacillin Sod/Tazobactam Sod 3.375 gm in 50 mls @ 100 mls/hr 03/05/17 11: 00 Zosyn 3.375 Gm Iv Premix IVPB Q6H XAVI Lorazepam 2 mg 03/05/17 00:18 03/05/17 06:00 Ativan IVP 2 mg Q2 PRN Administration Anxiety Past Psychiatric History - Past Psychiatric History Previous Treatment History: None Pertinent Medical Hx (Current Medical&Sleep Prob, Allergies): Allergies Allergy/AdvReac Type Severity Reaction Status Date / Time No Known Allergies Allergy Verified 01/20/16 17:11 No Known Home Med 10/10/16 Review of Systems - Neurological Neurological: Tremor, UNREMARKABLE - Psychiatric Psychiatric: Abnormal Sleep Pattern, Anxiety, Change in Appetite, Memory Loss, Mood Swings. absent: Hallucinations, Homicidal Ideation, Suicidal Ideation Mental Status Examination - Personal Presentation Personal Presentation: Looks older than stated age - Affect Affect: Blunted - Motor Activity Motor Activity: Calm - Reliability in Providing Information Reliability in Providing Information: Fair - Speech Speech: Disorganized - Mood Mood: Anxious - Formal Thought Process Formal Thought Process: No Impairment, Perservation - Cognitive Functions Orientation: Person, Place, Situation Sensorium: Lethargic Attention/Concentration: Easily distracted Estimate of Intelligence: Average Judgement: Intact, as evidence by: Insight regarding need for hospitalization Memory: Recent impaired, as evidence by: Inability to recall events of the day, Remote impaired as evidenced by: Inability to recall sig life events - Risk Risk: Withdrawal, Diminished functioning - Strength & Assets Inventory Strength & Assets Inventory: Family support - Limitations Limitations: Living alone DSM 5 DX - DSM 5 DSM 5 Diagnosis: Alcohol use disorder, Severe Alcohol-induced major neurocognitive disorder Alcohol wdw - Recommended/Plan of Treatment Treatment Recommendations and Plan of Treatment: Famotidine Folid Acid 1 mg/Thiamine HCl 100 mg/Multivitamins/Vitamin C 10 mL in Dextrose Lorazepam prn or taper Piperacillin Sod/Tazobactam Sod Sodium Chloride Vancomycin HCl in Sodium Chloride Continue medications Support and psychoeducation daily Attend groups and activities daily After care planning by TEVIN 33 mins Projected ELOS: 5-6 Days Prognosis: Good with tx
--- NOTE | 2017-03-05 20:55 | CARD ---
APPROVED REPORT EKG Measurement Heart [id number] <Conclusion> Sinus tachycardia with fusion complexes Rightward axis Borderline ECG
[2017-03-06] MEDS: Dextrose 5%/0.9% NS 1,000 ML IV SCH ×2 (00:20→10:46)
--- NOTE | 2017-03-06 00:55 | CARD ---
APPROVED REPORT EXAM: Two-dimensional and M-mode echocardiogram with Doppler and color Doppler. Other Information Quality : GoodRhythm : NSR INDICATION Peripheral Edema Alcohol Abuse/ Smoker M-Mode DIMENSIONS RVDd2.09 (2.1-3.2cm)Left Atrium (MM)3.33 (2.5-4.0cm) IVSd0.96 (0.7-1.1cm)Aortic Root3.27 (2.2-3.7cm) LVDd5.33 (4.0-5.6cm)Aortic Cusp Exc.2.17 (1.5-2.0cm) PWd0.85 (0.7-1.1cm)FS (%) 31 % LVDs3.67 (2.0-3.8cm)LVEF (%)59 (>50%) Mitral Valve MV E Xiidrmbk40.4cm/sMV A Ydxmrgwt39.5cm/sE/A ratio0.9 TDI E/Lateral E'0.0E/Medial E'0.0 Tricuspid Valve TR Peak [id number]/sTR Peak [id number] LEFT VENTRICLE The left ventricle is normal size. There is normal left ventricular wall thickness. Left ventricle systolic function is normal with Ejection Fraction of 55-60%. There is normal LV segmental wall motion. The left ventricular diastolic function is normal. No left ventricle thrombus noted on this study. RIGHT VENTRICLE The right ventricle is normal size. The right ventricular systolic function is normal. ATRIA The left atrium size is normal. The right atrium size is normal. AORTIC VALVE The aortic valve is mildly sclerotic. The aortic valve is trileaflet. No aortic regurgitation is present. There is no aortic valvular stenosis. There is no aortic valvular vegetation. MITRAL VALVE Mitral annular calcification is mild. There is no evidence of mitral valve prolapse. There is no mitral valve stenosis. There is no mitral valve regurgitation noted. TRICUSPID VALVE The tricuspid valve is normal in structure. There is trace to mild tricuspid regurgitation. Right ventricular systolic pressure is estimated at less than 30 mmHg. There is no pulmonary hypertension. There is no tricuspid valve prolapse or vegetation. There is no tricuspid valve stenosis. PULMONIC VALVE The pulmonic valve is not well visualized. There is no pulmonic valvular regurgitation. GREAT VESSELS The aortic root is normal in size. The IVC is normal in size and collapses >50% with inspiration. PERICARDIAL EFFUSION There is no pericardial effusion. There is no pleural effusion. <Conclusion> The left ventricle is normal size. Left ventricle systolic function is normal with Ejection Fraction of 55-60%. The right ventricle is normal size. The right ventricular systolic function is normal. The left atrium size is normal. The right atrium size is normal. There is trace to mild tricuspid regurgitation.
[2017-03-06] MEDS: Piperacill/Tazo 3.375gm in Dex 3.375 GM/50 ML BAG IVPB SCH ×4 (05:00→22:04)
[2017-03-06 06:54] LABS: BASO # 0.1 K/uL (0.0-0.2); BASO % 0.3 % (0.0-2.0); EOS % 0.2 % (0.0-4.0); HEMATOCRIT 34.6 % (35.0-51.0); LYMPH # 0.5 K/uL (1.0-4.3); LYMPH % 2.5 % (20.0-40.0); MEAN CORPUSCULAR HEMOGLOBIN 32.2 pg (27.0-31.0); MEAN CORPUSCULAR HGB CONC 32.9 g/dL (33.0-37.0); MEAN PLATELET VOLUME 10.9 fL (7.2-11.7); MONO # 0.5 K/uL (0.0-0.8); MONO % 2.3 % (0.0-10.0); PLATELET COUNT 45 K/uL (130-400); RED CELL DISTRIBUTION WIDTH 14.2 % (11.5-14.5); WHITE BLOOD COUNT 20.2 K/uL (4.8-10.8)
[2017-03-06 07:06] LABS: ALB/GLOB RATIO 0.8 (1.0-2.1); ALKALINE PHOSPHATASE 133 U/L (38-126); ALT/SGPT 37 U/L (21-72); AST/SGOT 50 U/L (17-59); BILIRUBIN,TOTAL 1.1 mg/dL (0.2-1.3); BLOOD UREA NITROGEN 3 mg/dL (9-20); CALCIUM 8.5 mg/dl (8.6-10.4); CARBON DIOXIDE 26 mmol/L (22-30); CHLORIDE 98 mmol/L (98-107); GFR AFRICAN-AMERICAN > 60; GLUCOSE,RANDOM 72 mg/dL (75-110); MAGNESIUM 1.6 mg/dL (1.6-2.3); PHOSPHOROUS 2.5 mg/dL (2.5-4.5); POTASSIUM 2.8 mmol/L (3.6-5.2); SODIUM 133 mmol/L (132-148); TOTAL PROTEIN 6.1 g/dL (6.3-8.3)
[2017-03-06 08:34] LABS: NEUTROPHIL 84 % (50-75); TOTAL CELLS COUNTED 100
[2017-03-06] MEDS ORDERED: Potassium Chloride 20 mEq ER Tab PO ONE ×3 (09:20→09:30)
[2017-03-06] MEDS: Folic Acid 1 MG, Thiamine 100 MG, Multivitamin (MVI) 10 ML in Dextrose 5% In Water 1,00... IV SCH (10:43)
--- NOTE | 2017-03-06 10:50 | CP.CCUPN ---
<Venice StanfordGiorgio - Last Filed: 03/06/17 10:47> CCU Subjective - Physician Review Subjective (Free Text): Patient was seen and examined at bedside in the morning. Patient was in no acute distress and was lethargic. Patient was in and out of sleep, and mumbling in response to questions. Patient reports having a nonproductive cough. Patient denies having chest pain, abdominal pain, fevers, shortness of breath, tremors, hallucinations, nausea, vomiting and diarrhea. 03/06/17 10:47 CCU Objective - Vital Signs / Intake & Output Vital Signs (Last 4 hours): Vital Signs Temp Pulse Resp BP Pulse Ox 03/06/17 10:01 106 H 21 145/97 H 96 03/06/17 10:00 105 H 21 91 L 03/06/17 09:01 81 14 137/97 H 89 L 03/06/17 09:00 84 16 80 L 03/06/17 08:01 96 H 16 143/98 H 98 03/06/17 08:00 98.6 F 89 14 97 03/06/17 07:01 90 12 123/78 98 Intake and Output (Last 8hrs): Intake & Output 03/05/17 03/06/17 03/06/17 22:59 06:59 14:59 Intake Total 1225 800 100 Output Total 900 Balance 1225 -100 100 Weight 156 lb 8.451 oz 154 lb Intake: Intake, IV Amount 1225 800 100 Left Forearm 725 800 100 Left Forearm Y-site 400 0 Right Hand 100 Output: Urine 900 Condom 900 Other: # Voids Condom 140 # Bowel Movements 1 - Physical Exam Head: Positive for: Atraumatic, Normocephalic Extroacular Muscles: Positive for: EOMI Mouth: Positive for: Moist Mucous Membranes Respiratory/Chest: Positive for: Decreased Breath Sounds. Negative for: Clear to Auscultation, Wheezes, Rales Cardiovascular: Positive for: Normal S1, S2, Tachycardic. Negative for: Murmurs Abdomen: Positive for: Normal Bowel Sounds. Negative for: Tenderness, Distention Upper Extremity: Positive for: Normal Inspection. Negative for: Edema Lower Extremity: Positive for: Normal Inspection, NORMAL PULSES. Negative for: Edema Skin: Positive for: Warm, Dry, Rashes (scrotum), Normal Color Psychiatric: Positive for: Lethargic. Negative for: Alert, Oriented x 3 ( oriented to place, not time), Normal Concentration - Medications Active Medications: Active Medications Generic Name Dose Route Start Last Admin Trade Name Freq PRN Reason Stop Dose Admin Chlordiazepoxide 25 mg 03/06/17 09:23 Librium PO Q8 PRN Agitation Famotidine 20 mg 03/05/17 10:00 03/05/17 21:40 Pepcid IVP 20 mg Q12 XAVI Administration Vancomycin HCl 1,000 mg/ 250 mls @ 166.6 mls/hr 03/05/17 00:30 03/06/17 00:10 Sodium Chloride IVPB 166.6 mls/hr Q12H XAVI Administration Piperacillin Sod/Tazobactam Sod 3.375 gm in 50 mls @ 100 mls/hr 03/05/17 11: 00 03/06/17 05:00 Zosyn 3.375 Gm Iv Premix IVPB 100 mls/hr Q6H XAVI Administration Folic Acid 1 mg/ Thiamine HCl 1,011.2 mls @ 50 mls/hr 03/06/17 10:00 100 mg/ Multivitamins/Vitamin IV C 10 ml/ Dextrose DAILY XAVI Dextrose/Sodium Chloride 1,000 mls @ 100 mls/hr 03/06/17 00:30 03/06/17 00:20 Dextrose 5%/0.9% Ns 1000 Ml IV 100 mls/hr .Q10H XAVI Administration Lorazepam 2 mg 03/05/17 00:18 03/06/17 01:04 Ativan IVP 2 mg Q2 PRN Administration Anxiety Nystatin 1 ea 03/06/17 10:00 Mycostatin Cream TOP TID XAVI - Patient Studies Lab Studies: Microbiology Studies 03/05/17 00:35 MRSA Culture (Admit) - Final Nose MRSA NOT DETECTED Lab Studies 03/06/17 03/06/17 03/06/17 Range/Units 06:31 06:31 05:18 WBC 20.2 H (4.8-10.8) K/uL RBC 3.53 L (4.40-5.90) Mil/uL Hgb 11.4 L (12.0-18.0) g/dL Hct 34.6 L (35.0-51.0) % MCV 98.0 H D (80.0-94.0) fL MCH 32.2 H (27.0-31.0) pg MCHC 32.9 L (33.0-37.0) g/dL RDW 14.2 (11.5-14.5) % Plt Count 45 L (130-400) K/uL MPV 10.9 (7.2-11.7) fL Neut % (Auto) 94.7 H (50.0-75.0) % Lymph % (Auto) 2.5 L (20.0-40.0) % [place] % (Auto) 2.3 (0.0-10.0) % Eos % (Auto) 0.2 (0.0-4.0) % Baso % (Auto) 0.3 (0.0-2.0) % Neut # 19.1 H (1.8-7.0) K/uL Lymph # 0.5 L (1.0-4.3) K/uL [place] # 0.5 (0.0-0.8) K/uL Eos # 0.0 (0.0-0.7) K/uL Baso # 0.1 (0.0-0.2) K/uL Neutrophils % (Manual) 84 H (50-75) % Band Neutrophils % 11 H* (0-2) % Lymphocytes % (Manual) 2 L (20-40) % Monocytes % (Manual) 3 (0-10) % Platelet Estimate Decreased L (NORMAL) RBC Morphology Normal Sodium 133 (132-148) mmol/L Potassium 2.8 L (3.6-5.2) mmol/L Chloride 98 (98-107) mmol/L Carbon Dioxide 26 (22-30) mmol/L Anion Gap 12 (10-20) BUN 3 L (9-20) mg/dL Creatinine 0.6 L (0.8-1.5) MG/DL Est GFR ( Amer) > 60 Est GFR (Non-Af Amer) > 60 POC Glucose (mg/dL) 81 (65-110) mg/dL Random Glucose 72 L (75-110) mg/dL Calcium 8.5 L (8.6-10.4) mg/dl Phosphorus 2.5 (2.5-4.5) mg/dL Magnesium 1.6 (1.6-2.3) mg/dL Total Bilirubin 1.1 (0.2-1.3) mg/dL AST 50 (17-59) U/L ALT 37 (21-72) U/L Alkaline Phosphatase 133 H (38-126) U/L Total Protein 6.1 L (6.3-8.3) g/dL Albumin 2.8 L (3.5-5.0) g/dL Globulin 3.3 (2.2-3.9) gm/dL Albumin/Globulin Ratio 0.8 L (1.0-2.1) C. difficile Ag & Toxin (NEGATIVE) 03/06/17 03/05/17 03/05/17 Range/Units 00:12 17:51 15:30 WBC (4.8-10.8) K/uL RBC (4.40-5.90) Mil/uL Hgb (12.0-18.0) g/dL Hct (35.0-51.0) % MCV (80.0-94.0) fL MCH (27.0-31.0) pg MCHC (33.0-37.0) g/dL RDW (11.5-14.5) % Plt Count (130-400) K/uL MPV (7.2-11.7) fL Neut % (Auto) (50.0-75.0) % Lymph % (Auto) (20.0-40.0) % [place] % (Auto) (0.0-10.0) % Eos % (Auto) (0.0-4.0) % Baso % (Auto) (0.0-2.0) % Neut # (1.8-7.0) K/uL Lymph # (1.0-4.3) K/uL [place] # (0.0-0.8) K/uL Eos # (0.0-0.7) K/uL Baso # (0.0-0.2) K/uL Neutrophils % (Manual) (50-75) % Band Neutrophils % (0-2) % Lymphocytes % (Manual) (20-40) % Monocytes % (Manual) (0-10) % Platelet Estimate (NORMAL) RBC Morphology Sodium (132-148) mmol/L Potassium (3.6-5.2) mmol/L Chloride (98-107) mmol/L Carbon Dioxide (22-30) mmol/L Anion Gap (10-20) BUN (9-20) mg/dL Creatinine (0.8-1.5) MG/DL Est GFR ( Amer) Est GFR (Non-Af Amer) POC Glucose (mg/dL) 77 95 (65-110) mg/dL Random Glucose (75-110) mg/dL Calcium (8.6-10.4) mg/dl Phosphorus (2.5-4.5) mg/dL Magnesium (1.6-2.3) mg/dL Total Bilirubin (0.2-1.3) mg/dL AST (17-59) U/L ALT (21-72) U/L Alkaline Phosphatase (38-126) U/L Total Protein (6.3-8.3) g/dL Albumin (3.5-5.0) g/dL Globulin (2.2-3.9) gm/dL Albumin/Globulin Ratio (1.0-2.1) C. difficile Ag & Toxin Negative (NEGATIVE) 03/05/17 Range/Units 12:08 WBC (4.8-10.8) K/uL RBC (4.40-5.90) Mil/uL Hgb (12.0-18.0) g/dL Hct (35.0-51.0) % MCV (80.0-94.0) fL MCH (27.0-31.0) pg MCHC (33.0-37.0) g/dL RDW (11.5-14.5) % Plt Count (130-400) K/uL MPV (7.2-11.7) fL Neut % (Auto) (50.0-75.0) % Lymph % (Auto) (20.0-40.0) % [place] % (Auto) (0.0-10.0) % Eos % (Auto) (0.0-4.0) % Baso % (Auto) (0.0-2.0) % Neut # (1.8-7.0) K/uL Lymph # (1.0-4.3) K/uL [place] # (0.0-0.8) K/uL Eos # (0.0-0.7) K/uL Baso # (0.0-0.2) K/uL Neutrophils % (Manual) (50-75) % Band Neutrophils % (0-2) % Lymphocytes % (Manual) (20-40) % Monocytes % (Manual) (0-10) % Platelet Estimate (NORMAL) RBC Morphology Sodium (132-148) mmol/L Potassium (3.6-5.2) mmol/L Chloride (98-107) mmol/L Carbon Dioxide (22-30) mmol/L Anion Gap (10-20) BUN (9-20) mg/dL Creatinine (0.8-1.5) MG/DL Est GFR ( Amer) Est GFR (Non-Af Amer) POC Glucose (mg/dL) 108 (65-110) mg/dL Random Glucose (75-110) mg/dL Calcium (8.6-10.4) mg/dl Phosphorus (2.5-4.5) mg/dL Magnesium (1.6-2.3) mg/dL Total Bilirubin (0.2-1.3) mg/dL AST (17-59) U/L ALT (21-72) U/L Alkaline Phosphatase (38-126) U/L Total Protein (6.3-8.3) g/dL Albumin (3.5-5.0) g/dL Globulin (2.2-3.9) gm/dL Albumin/Globulin Ratio (1.0-2.1) C. difficile Ag & Toxin (NEGATIVE) Laboratory Results - last 24 hr 03/05/17 03/05/17 03/05/17 12:08 15:30 17:51 WBC RBC Hgb Hct MCV MCH MCHC RDW Plt Count MPV Neut % (Auto) Lymph % (Auto) [place] % (Auto) Eos % (Auto) Baso % (Auto) Neut # Lymph # [place] # Eos # Baso # Neutrophils % (Manual) Band Neutrophils % Lymphocytes % (Manual) Monocytes % (Manual) Platelet Estimate RBC Morphology Sodium Potassium Chloride Carbon Dioxide Anion Gap BUN Creatinine Est GFR ( Amer) Est GFR (Non-Af Amer) POC Glucose (mg/dL) 108 95 Random Glucose Calcium Phosphorus Magnesium Total Bilirubin AST ALT Alkaline Phosphatase Total Protein Albumin Globulin Albumin/Globulin Ratio C. difficile Ag & Toxin Negative 03/06/17 03/06/17 03/06/17 00:12 05:18 06:31 WBC 20.2 H RBC 3.53 L Hgb 11.4 L Hct 34.6 L MCV 98.0 H D MCH 32.2 H MCHC 32.9 L RDW 14.2 Plt Count 45 L MPV 10.9 Neut % (Auto) 94.7 H Lymph % (Auto) 2.5 L [place] % (Auto) 2.3 Eos % (Auto) 0.2 Baso % (Auto) 0.3 Neut # 19.1 H Lymph # 0.5 L [place] # 0.5 Eos # 0.0 Baso # 0.1 Neutrophils % (Manual) 84 H Band Neutrophils % 11 H* Lymphocytes % (Manual) 2 L Monocytes % (Manual) 3 Platelet Estimate Decreased L RBC Morphology Normal Sodium Potassium Chloride Carbon Dioxide Anion Gap BUN Creatinine Est GFR ( Amer) Est GFR (Non-Af Amer) POC Glucose (mg/dL) 77 81 Random Glucose Calcium Phosphorus Magnesium Total Bilirubin AST ALT Alkaline Phosphatase Total Protein Albumin Globulin Albumin/Globulin Ratio C. difficile Ag & Toxin 03/06/17 06:31 WBC RBC Hgb Hct MCV MCH MCHC RDW Plt Count MPV Neut % (Auto) Lymph % (Auto) [place] % (Auto) Eos % (Auto) Baso % (Auto) Neut # Lymph # [place] # Eos # Baso # Neutrophils % (Manual) Band Neutrophils % Lymphocytes % (Manual) Monocytes % (Manual) Platelet Estimate RBC Morphology Sodium 133 Potassium 2.8 L Chloride 98 Carbon Dioxide 26 Anion Gap 12 BUN 3 L Creatinine 0.6 L Est GFR ( Amer) > 60 Est GFR (Non-Af Amer) > 60 POC Glucose (mg/dL) Random Glucose 72 L Calcium 8.5 L Phosphorus 2.5 Magnesium 1.6 Total Bilirubin 1.1 AST 50 ALT 37 Alkaline Phosphatase 133 H Total Protein 6.1 L Albumin 2.8 L Globulin 3.3 Albumin/Globulin Ratio 0.8 L C. difficile Ag & Toxin Fingerstick Blood Sugar Results: 81 Review of Systems - Constitutional Constitutional: absent: Fever - Cardiovascular Cardiovascular: absent: Chest Pain, Dyspnea - Respiratory Respiratory: Cough. absent: Dyspnea - Gastrointestinal Gastrointestinal: absent: Abdominal Pain, Constipation, Diarrhea, Nausea, Vomiting - Genitourinary Genitourinary: absent: Dysuria - Neurological Neurological: absent: Dizziness, Headaches Critical Care Progress Note - Nutrition Nutrition: Nutrition Category Date Time Status NPO Diet [DIET] Diets 03/05/17 Breakfast Active Assessment/Plan (1) Sepsis Assessment and plan: 41 year old male with past medical history of alcoholism, seizures secondary to alcohol withdrawal, pneumonia, and electrolyte imbalance, presented to the ED with tremors, DTs, and was admitted as Code Sepsis. Patient's last drink was the morning before going to ED. Neuro: lethargic, oriented to person, place, but not time Pulm: Sepsis, likely secondary to pneumonia - CXR: patchy infiltrate in right mid to lower lung field. possible small right effusion; suspect minor left basilar atelectasis, possible developing left lower lobe infiltrate CV: - Monitor vitals - ECHO: f/u (r/o infectious endocarditis) - IV Fluids + Multivitamin/ Folic Acid/Thiamine Endo: no acute issues - Monitor blood glucose GI: NPO - As per nurse, Diarrhea: C.Diff negative - Pepcid Heme: Thrombocytopenia - Platelet count decreasing, 03/05 count is 37 - 45 on 03/06/17 - Monitor H/H/platelets Renal: - Monitor renal function - Hypokalemia: KCl given ID: CODE Sepsis likely secondary to pneumonia - Bandemia: 27--> improving, 11 on 03/06/17 - Continue Zosyn, Vanco - Blood cx: negative for 24hrs Psych: Alcohol withdrawal/ DTs - Alcohol: 175 - Ativan - Librium started today - Monitor - Psychiatry consulted: Dr. Skinner, help appreciated Skin: - Scrotal rash--> apply Nystatin TID Prophylaxis: - DVT: SCDs; C/I due to thrombocytopenia - GI: pepcid Current Visit: Yes Status: Acute <Sascha Gomez - Last Filed: 03/06/17 17:19> CCU Objective - Vital Signs / Intake & Output Vital Signs (Last 4 hours): Vital Signs Pulse Resp BP Pulse Ox 03/06/17 16:01 96 H 25 H 134/94 H 03/06/17 16:00 90 27 H 03/06/17 15:01 90 18 123/92 H 83 L 03/06/17 15:00 90 18 83 L 03/06/17 14:01 94 H 23 131/90 03/06/17 14:00 101 H 21 Intake and Output (Last 8hrs): Intake & Output 03/06/17 03/06/17 03/06/17 06:59 14:59 22:59 Intake Total 800 800 200 Output Total 900 1100 450 Balance -100 -300 -250 Weight 156 lb 8.451 oz 154 lb Intake: Intake, IV Amount 800 800 200 Left Forearm 800 800 200 Left Forearm Y-site 0 Output: Urine 900 1100 450 Condom 900 1100 450 - Medications Active Medications: Active Medications Generic Name Dose Route Start Last Admin Trade Name Freq PRN Reason Stop Dose Admin Chlordiazepoxide 25 mg 03/06/17 09:23 03/06/17 16:59 Librium PO 25 mg Q8 PRN Administration Agitation Famotidine 20 mg 03/05/17 10:00 03/06/17 10:39 Pepcid IVP 20 mg Q12 XAVI Administration Vancomycin HCl 1,000 mg/ 250 mls @ 166.6 mls/hr 03/05/17 00:30 03/06/17 12:01 Sodium Chloride IVPB 166.6 mls/hr Q12H XAVI Administration Piperacillin Sod/Tazobactam Sod 3.375 gm in 50 mls @ 100 mls/hr 03/05/17 11: 00 03/06/17 16:11 Zosyn 3.375 Gm Iv Premix IVPB 100 mls/hr Q6H XAVI Administration Folic Acid 1 mg/ Thiamine HCl 1,011.2 mls @ 50 mls/hr 03/06/17 10:00 10:43 100 mg/ Multivitamins/Vitamin IV 50 mls/hr C 10 ml/ Dextrose DAILY XAVI Administration Dextrose/Sodium Chloride 1,000 mls @ 100 mls/hr 03/06/17 00:30 03/06/17 10:46 Dextrose 5%/0.9% Ns 1000 Ml IV 100 mls/hr .Q10H XAVI Administration Lorazepam 2 mg 03/05/17 00:18 03/06/17 16:08 Ativan IVP 2 mg Q2 PRN Administration Anxiety Nystatin 1 ea 03/06/17 10:00 03/06/17 17:04 Mycostatin Cream TOP 1 ea TID XAVI Administration - Patient Studies Lab Studies: Microbiology Studies 03/05/17 00:35 MRSA Culture (Admit) - Final Nose MRSA NOT DETECTED Lab Studies 03/06/17 03/06/17 03/06/17 Range/Units 16:16 11:47 06:31 WBC (4.8-10.8) K/uL RBC (4.40-5.90) Mil/uL Hgb (12.0-18.0) g/dL Hct (35.0-51.0) % MCV (80.0-94.0) fL MCH (27.0-31.0) pg MCHC (33.0-37.0) g/dL RDW (11.5-14.5) % Plt Count (130-400) K/uL MPV (7.2-11.7) fL Neut % (Auto) (50.0-75.0) % Lymph % (Auto) (20.0-40.0) % [place] % (Auto) (0.0-10.0) % Eos % (Auto) (0.0-4.0) % Baso % (Auto) (0.0-2.0) % Neut # (1.8-7.0) K/uL Lymph # (1.0-4.3) K/uL [place] # (0.0-0.8) K/uL Eos # (0.0-0.7) K/uL Baso # (0.0-0.2) K/uL Neutrophils % (Manual) (50-75) % Band Neutrophils % (0-2) % Lymphocytes % (Manual) (20-40) % Monocytes % (Manual) (0-10) % Platelet Estimate (NORMAL) RBC Morphology Sodium 133 (132-148) mmol/L Potassium 2.8 L (3.6-5.2) mmol/L Chloride 98 (98-107) mmol/L Carbon Dioxide 26 (22-30) mmol/L Anion Gap 12 (10-20) BUN 3 L (9-20) mg/dL Creatinine 0.6 L (0.8-1.5) MG/DL Est GFR ( Amer) > 60 Est GFR (Non-Af Amer) > 60 POC Glucose (mg/dL) 85 98 (65-110) mg/dL Random Glucose 72 L (75-110) mg/dL Calcium 8.5 L (8.6-10.4) mg/dl Phosphorus 2.5 (2.5-4.5) mg/dL Magnesium 1.6 (1.6-2.3) mg/dL Total Bilirubin 1.1 (0.2-1.3) mg/dL AST 50 (17-59) U/L ALT 37 (21-72) U/L Alkaline Phosphatase 133 H (38-126) U/L Total Protein 6.1 L (6.3-8.3) g/dL Albumin 2.8 L (3.5-5.0) g/dL Globulin 3.3 (2.2-3.9) gm/dL Albumin/Globulin Ratio 0.8 L (1.0-2.1) C. difficile Ag & Toxin (NEGATIVE) 03/06/17 03/06/17 03/06/17 Range/Units 06:31 05:18 00:12 WBC 20.2 H (4.8-10.8) K/uL RBC 3.53 L (4.40-5.90) Mil/uL Hgb 11.4 L (12.0-18.0) g/dL Hct 34.6 L (35.0-51.0) % MCV 98.0 H D (80.0-94.0) fL MCH 32.2 H (27.0-31.0) pg MCHC 32.9 L (33.0-37.0) g/dL RDW 14.2 (11.5-14.5) % Plt Count 45 L (130-400) K/uL MPV 10.9 (7.2-11.7) fL Neut % (Auto) 94.7 H (50.0-75.0) % Lymph % (Auto) 2.5 L (20.0-40.0) % [place] % (Auto) 2.3 (0.0-10.0) % Eos % (Auto) 0.2 (0.0-4.0) % Baso % (Auto) 0.3 (0.0-2.0) % Neut # 19.1 H (1.8-7.0) K/uL Lymph # 0.5 L (1.0-4.3) K/uL [place] # 0.5 (0.0-0.8) K/uL Eos # 0.0 (0.0-0.7) K/uL Baso # 0.1 (0.0-0.2) K/uL Neutrophils % (Manual) 84 H (50-75) % Band Neutrophils % 11 H* (0-2) % Lymphocytes % (Manual) 2 L (20-40) % Monocytes % (Manual) 3 (0-10) % Platelet Estimate Decreased L (NORMAL) RBC Morphology Normal Sodium (132-148) mmol/L Potassium (3.6-5.2) mmol/L Chloride (98-107) mmol/L Carbon Dioxide (22-30) mmol/L Anion Gap (10-20) BUN (9-20) mg/dL Creatinine (0.8-1.5) MG/DL Est GFR ( Amer) Est GFR (Non-Af Amer) POC Glucose (mg/dL) 81 77 (65-110) mg/dL Random Glucose (75-110) mg/dL Calcium (8.6-10.4) mg/dl Phosphorus (2.5-4.5) mg/dL Magnesium (1.6-2.3) mg/dL Total Bilirubin (0.2-1.3) mg/dL AST (17-59) U/L ALT (21-72) U/L Alkaline Phosphatase (38-126) U/L Total Protein (6.3-8.3) g/dL Albumin (3.5-5.0) g/dL Globulin (2.2-3.9) gm/dL Albumin/Globulin Ratio (1.0-2.1) C. difficile Ag & Toxin (NEGATIVE) 03/05/17 03/05/17 Range/Units 17:51 15:30 WBC (4.8-10.8) K/uL RBC (4.40-5.90) Mil/uL Hgb (12.0-18.0) g/dL Hct (35.0-51.0) % MCV (80.0-94.0) fL MCH (27.0-31.0) pg MCHC (33.0-37.0) g/dL RDW (11.5-14.5) % Plt Count (130-400) K/uL MPV (7.2-11.7) fL Neut % (Auto) (50.0-75.0) % Lymph % (Auto) (20.0-40.0) % [place] % (Auto) (0.0-10.0) % Eos % (Auto) (0.0-4.0) % Baso % (Auto) (0.0-2.0) % Neut # (1.8-7.0) K/uL Lymph # (1.0-4.3) K/uL [place] # (0.0-0.8) K/uL Eos # (0.0-0.7) K/uL Baso # (0.0-0.2) K/uL Neutrophils % (Manual) (50-75) % Band Neutrophils % (0-2) % Lymphocytes % (Manual) (20-40) % Monocytes % (Manual) (0-10) % Platelet Estimate (NORMAL) RBC Morphology Sodium (132-148) mmol/L Potassium (3.6-5.2) mmol/L Chloride (98-107) mmol/L Carbon Dioxide (22-30) mmol/L Anion Gap (10-20) BUN (9-20) mg/dL Creatinine (0.8-1.5) MG/DL Est GFR ( Amer) Est GFR (Non-Af Amer) POC Glucose (mg/dL) 95 (65-110) mg/dL Random Glucose (75-110) mg/dL Calcium (8.6-10.4) mg/dl Phosphorus (2.5-4.5) mg/dL Magnesium (1.6-2.3) mg/dL Total Bilirubin (0.2-1.3) mg/dL AST (17-59) U/L ALT (21-72) U/L Alkaline Phosphatase (38-126) U/L Total Protein (6.3-8.3) g/dL Albumin (3.5-5.0) g/dL Globulin (2.2-3.9) gm/dL Albumin/Globulin Ratio (1.0-2.1) C. difficile Ag & Toxin Negative (NEGATIVE) Laboratory Results - last 24 hr 03/05/17 03/05/17 03/06/17 15:30 17:51 00:12 WBC RBC Hgb Hct MCV MCH MCHC RDW Plt Count MPV Neut % (Auto) Lymph % (Auto) [place] % (Auto) Eos % (Auto) Baso % (Auto) Neut # Lymph # [place] # Eos # Baso # Neutrophils % (Manual) Band Neutrophils % Lymphocytes % (Manual) Monocytes % (Manual) Platelet Estimate RBC Morphology Sodium Potassium Chloride Carbon Dioxide Anion Gap BUN Creatinine Est GFR ( Amer) Est GFR (Non-Af Amer) POC Glucose (mg/dL) 95 77 Random Glucose Calcium Phosphorus Magnesium Total Bilirubin AST ALT Alkaline Phosphatase Total Protein Albumin Globulin Albumin/Globulin Ratio C. difficile Ag & Toxin Negative 03/06/17 03/06/17 03/06/17 05:18 06:31 06:31 WBC 20.2 H RBC 3.53 L Hgb 11.4 L Hct 34.6 L MCV 98.0 H D MCH 32.2 H MCHC 32.9 L RDW 14.2 Plt Count 45 L MPV 10.9 Neut % (Auto) 94.7 H Lymph % (Auto) 2.5 L [place] % (Auto) 2.3 Eos % (Auto) 0.2 Baso % (Auto) 0.3 Neut # 19.1 H Lymph # 0.5 L [place] # 0.5 Eos # 0.0 Baso # 0.1 Neutrophils % (Manual) 84 H Band Neutrophils % 11 H* Lymphocytes % (Manual) 2 L Monocytes % (Manual) 3 Platelet Estimate Decreased L RBC Morphology Normal Sodium 133 Potassium 2.8 L Chloride 98 Carbon Dioxide 26 Anion Gap 12 BUN 3 L Creatinine 0.6 L Est GFR ( Amer) > 60 Est GFR (Non-Af Amer) > 60 POC Glucose (mg/dL) 81 Random Glucose 72 L Calcium 8.5 L Phosphorus 2.5 Magnesium 1.6 Total Bilirubin 1.1 AST 50 ALT 37 Alkaline Phosphatase 133 H Total Protein 6.1 L Albumin 2.8 L Globulin 3.3 Albumin/Globulin Ratio 0.8 L C. difficile Ag & Toxin 03/06/17 03/06/17 11:47 16:16 WBC RBC Hgb Hct MCV MCH MCHC RDW Plt Count MPV Neut % (Auto) Lymph % (Auto) [place] % (Auto) Eos % (Auto) Baso % (Auto) Neut # Lymph # [place] # Eos # Baso # Neutrophils % (Manual) Band Neutrophils % Lymphocytes % (Manual) Monocytes % (Manual) Platelet Estimate RBC Morphology Sodium Potassium Chloride Carbon Dioxide Anion Gap BUN Creatinine Est GFR ( Amer) Est GFR (Non-Af Amer) POC Glucose (mg/dL) 98 85 Random Glucose Calcium Phosphorus Magnesium Total Bilirubin AST ALT Alkaline Phosphatase Total Protein Albumin Globulin Albumin/Globulin Ratio C. difficile Ag & Toxin Critical Care Progress Note - Nutrition Nutrition: Nutrition Category Date Time Status NPO Diet [DIET] Diets 03/05/17 Breakfast Active Attending/Attestation - Attestation I have personally seen and examined this patient.: Yes I have fully participated in the care of the patient.: Yes I have reviewed all pertinent clinical information: Yes Notes (Text): 03/06/17 17:19 Patient seen and examined in the intensive care unit. Case discussed with house staff in the morning. Continue antibiotics for pneumonia Continue Ativan and start Librium Potassium supplement Monitor for DTs
[2017-03-06] MEDS: Nystatin 100,000 Units/gm Cream(15 gm) TOP SCH ×3 (11:59→17:04)
--- NOTE | 2017-03-06 16:42 | CP.PCM.PN ---
Subjective - Date & Time of Evaluation Date of Evaluation: 03/06/17 Time of Evaluation: 14:00 - Subjective Subjective: clinically same Objective - Vital Signs/Intake and Output Vital Signs (last 24 hours): Temp Pulse Resp BP Pulse Ox 98.6 F 90 18 123/92 H 83 L 03/06/17 08:00 03/06/17 15:01 03/06/17 15:01 03/06/17 15:01 03/06/17 15:01 Intake and Output: 03/06/17 03/06/17 06:59 18:59 Intake Total 1450 900 Output Total 900 1100 Balance 550 -200 - Medications Medications: Current Medications Chlordiazepoxide (Librium) 25 mg PO Q8 PRN PRN Reason: Agitation Famotidine (Pepcid) 20 mg IVP Q12 [facility] Last Admin: 03/06/17 10:39 Dose: 20 mg Vancomycin HCl 1,000 mg/ (Sodium Chloride) 250 mls @ 166.6 mls/hr IVPB Q12H [facility] Last Admin: 03/06/17 12:01 Dose: 166.6 mls/hr Piperacillin Sod/Tazobactam Sod (Zosyn 3.375 Gm Iv Premix) 3.375 gm in 50 mls @ 100 mls/hr IVPB Q6H [facility] Last Admin: 03/06/17 16:11 Dose: 100 mls/hr Folic Acid 1 mg/ Thiamine HCl 100 mg/ Multivitamins/Vitamin C 10 ml/ Dextrose 1 ,011.2 mls @ 50 mls/hr IV DAILY [facility] Last Admin: 03/06/17 10:43 Dose: 50 mls/hr Dextrose/Sodium Chloride (Dextrose 5%/0.9% Ns 1000 Ml) 1,000 mls @ 100 mls/hr IV .Q10H [facility] Last Admin: 03/06/17 10:46 Dose: 100 mls/hr Lorazepam (Ativan) 2 mg IVP Q2 PRN PRN Reason: Anxiety Last Admin: 03/06/17 16:08 Dose: 2 mg Nystatin (Mycostatin Cream) 1 ea TOP TID [facility] Last Admin: 03/06/17 13:04 Dose: 1 ea - Labs Labs: 03/06/17 06:31 03/06/17 06:31 - Constitutional Appears: Well - Head Exam Head Exam: ATRAUMATIC, NORMAL INSPECTION, NORMOCEPHALIC - Eye Exam Eye Exam: EOMI, Normal appearance, PERRL Pupil Exam: NORMAL ACCOMODATION, PERRL - ENT Exam ENT Exam: Mucous Membranes Moist, Normal Exam - Neck Exam Neck Exam: Full ROM, Normal Inspection. absent: Lymphadenopathy - Respiratory Exam Respiratory Exam: Decreased Breath Sounds - Cardiovascular Exam Cardiovascular Exam: REGULAR RHYTHM, +S1, +S2 - GI/Abdominal Exam GI & Abdominal Exam: Soft, Diminished Bowel Sounds - Rectal Exam Rectal Exam: Deferred
[2017-03-07] MEDS: Dextrose 5%/0.9% NS 1,000 ML IV SCH ×3 (01:50→16:41)
[2017-03-07] MEDS: Piperacill/Tazo 3.375gm in Dex 3.375 GM/50 ML BAG IVPB SCH ×4 (04:04→22:41)
[2017-03-07 05:10] LABS: CHLORIDE 97 mmol/L (98-107); POTASSIUM 2.9 mmol/L (3.6-5.2); SODIUM 132 mmol/L (132-148)
[2017-03-07 05:12] LABS: ALKALINE PHOSPHATASE 142 U/L (38-126); ALT/SGPT 35 U/L (21-72); AST/SGOT 38 U/L (17-59); BILIRUBIN,TOTAL 1.2 mg/dL (0.2-1.3); CARBON DIOXIDE 25 mmol/L (22-30); GFR AFRICAN-AMERICAN > 60; GLUCOSE,RANDOM 102 mg/dL (75-110); TOTAL PROTEIN 6.7 g/dL (6.3-8.3)
[2017-03-07 05:13] LABS: CALCIUM 8.8 mg/dl (8.6-10.4); MAGNESIUM 1.2 mg/dL (1.6-2.3); PHOSPHOROUS 1.9 mg/dL (2.5-4.5)
[2017-03-07 05:16] LABS: ALB/GLOB RATIO 0.8 (1.0-2.1); BLOOD UREA NITROGEN < 2 mg/dL (9-20)
[2017-03-07 05:33] LABS: BASO # 0.1 K/uL (0.0-0.2); BASO % 0.7 % (0.0-2.0); EOS # 0.1 K/uL (0.0-0.7); EOS % 0.9 % (0.0-4.0); HEMATOCRIT 33.8 % (35.0-51.0); LYMPH # 0.8 K/uL (1.0-4.3); LYMPH % 6.1 % (20.0-40.0); MEAN CELL VOLUME 95.7 fL (80.0-94.0); MEAN CORPUSCULAR HGB CONC 33.4 g/dL (33.0-37.0); MEAN PLATELET VOLUME 11.1 fL (7.2-11.7); MONO # 0.7 K/uL (0.0-0.8); MONO % 5.5 % (0.0-10.0); PLATELET COUNT 54 K/uL (130-400); RED CELL DISTRIBUTION WIDTH 13.5 % (11.5-14.5); WHITE BLOOD COUNT 13.1 K/uL (4.8-10.8)
[2017-03-07] MEDS ORDERED: Potassium Chloride 20 mEq ER Tab PO STA (06:40)
[2017-03-07] MEDS: Magnesium Sulfate 1 gm in D5W 1 GM/100 ML BAG IVPB SCH ×2 (07:41→07:45)
[2017-03-07 08:40] LABS: NEUTROPHIL 82 % (50-75); TOTAL CELLS COUNTED 100
[2017-03-07] MEDS: Nystatin 100,000 Units/gm Cream(15 gm) TOP SCH ×3 (09:31→17:08)
[2017-03-07] MEDS: Folic Acid 1 MG, Thiamine 100 MG, Multivitamin (MVI) 10 ML in Dextrose 5% In Water 1,00... IV SCH (09:35)
[2017-03-07] MEDS ORDERED: Potassium Phosphate 15 MMOLE in Sodium Chloride 0.9% 250 ML IVPB ONE (09:48)
--- NOTE | 2017-03-07 12:55 | CP.CCUPN ---
<MandeepThalia rayari RigoGiorgio - Last Filed: 03/07/17 12:52> CCU Subjective - Physician Review Subjective (Free Text): Patient was seen and examined at bedside in the morning. Patient was in no acute distress. Patient is confused and mumbling in response to questions. Patient denies having chest pain, abdominal pain, fevers, shortness of breath, tremors, hallucinations, nausea, vomiting and diarrhea. 03/07/17 12:52 CCU Objective - Vital Signs / Intake & Output Vital Signs (Last 4 hours): Vital Signs Temp Pulse Resp BP Pulse Ox 03/07/17 12:01 83 16 128/87 03/07/17 12:00 98.6 F 103 H 18 03/07/17 11:01 87 21 137/98 H 03/07/17 11:00 90 18 03/07/17 10:01 82 19 136/96 H 99 03/07/17 10:00 84 20 98 03/07/17 09:01 89 22 133/101 H 100 03/07/17 09:00 101 H 15 Intake and Output (Last 8hrs): Intake & Output 03/06/17 03/07/17 03/07/17 22:59 06:59 14:59 Intake Total 1050 1200 1100 Output Total 1275 1575 1100 Balance -225 -375 0 Weight 154 lb Intake: Intake, IV Amount 1050 1200 1100 Left Forearm 700 800 100 Left Forearm Y-site 350 400 500 Right Hand 500 Oral 0 Output: Urine 1275 1575 1100 Condom 1275 1575 1100 - Physical Exam Head: Positive for: Atraumatic, Normocephalic Extroacular Muscles: Positive for: EOMI Mouth: Positive for: Moist Mucous Membranes Respiratory/Chest: Positive for: Decreased Breath Sounds. Negative for: Clear to Auscultation, Wheezes, Rales Cardiovascular: Positive for: Normal S1, S2, Tachycardic. Negative for: Murmurs Abdomen: Negative for: Tenderness, Distention, Normal Bowel Sounds (decreased) Upper Extremity: Positive for: Normal Inspection. Negative for: Edema Lower Extremity: Positive for: Normal Inspection, NORMAL PULSES. Negative for: Edema Skin: Positive for: Warm, Dry, Rashes (scrotum), Normal Color Psychiatric: Positive for: Lethargic. Negative for: Alert, Oriented x 3 ( oriented to place, not time), Normal Concentration - Medications Active Medications: Active Medications Generic Name Dose Route Start Last Admin Trade Name Freq PRN Reason Stop Dose Admin Chlordiazepoxide 25 mg 03/06/17 09:23 03/06/17 16:59 Librium PO 25 mg Q8 PRN Administration Agitation Famotidine 20 mg 03/05/17 10:00 03/07/17 09:39 Pepcid IVP 20 mg Q12 XAVI Administration Vancomycin HCl 1,000 mg/ 250 mls @ 166.6 mls/hr 03/05/17 00:30 03/06/17 23:45 Sodium Chloride IVPB 166.6 mls/hr Q12H XAVI Administration Piperacillin Sod/Tazobactam Sod 3.375 gm in 50 mls @ 100 mls/hr 03/05/17 11: 00 03/07/17 10:22 Zosyn 3.375 Gm Iv Premix IVPB 100 mls/hr Q6H XAVI Administration Folic Acid 1 mg/ Thiamine HCl 1,011.2 mls @ 50 mls/hr 03/06/17 10:00 09:35 100 mg/ Multivitamins/Vitamin IV 50 mls/hr C 10 ml/ Dextrose DAILY XAVI Administration Dextrose/Sodium Chloride 1,000 mls @ 100 mls/hr 03/06/17 00:30 03/07/17 06:44 Dextrose 5%/0.9% Ns 1000 Ml IV Not Given .Q10H XAVI Potassium Phosphate 15 mmole/ 255 mls @ 42.5 mls/hr 03/07/17 09:48 Sodium Chloride IVPB 03/07/17 15:47 ONCE ONE Lorazepam 2 mg 03/05/17 00:18 03/06/17 21:36 Ativan IVP 2 mg Q2 PRN Administration Anxiety Nystatin 1 ea 03/06/17 10:00 03/07/17 09:31 Mycostatin Cream TOP 1 ea TID XAVI Administration - Patient Studies Lab Studies: Microbiology Studies 03/05/17 00:35 MRSA Culture (Admit) - Final Nose MRSA NOT DETECTED Lab Studies 03/07/17 03/07/17 03/07/17 Range/Units 11:28 06:26 04:44 WBC (4.8-10.8) K/uL RBC (4.40-5.90) Mil/uL Hgb (12.0-18.0) g/dL Hct (35.0-51.0) % MCV (80.0-94.0) fL MCH (27.0-31.0) pg MCHC (33.0-37.0) g/dL RDW (11.5-14.5) % Plt Count (130-400) K/uL MPV (7.2-11.7) fL Neut % (Auto) (50.0-75.0) % Lymph % (Auto) (20.0-40.0) % [place] % (Auto) (0.0-10.0) % Eos % (Auto) (0.0-4.0) % Baso % (Auto) (0.0-2.0) % Neut # (1.8-7.0) K/uL Lymph # (1.0-4.3) K/uL [place] # (0.0-0.8) K/uL Eos # (0.0-0.7) K/uL Baso # (0.0-0.2) K/uL Neutrophils % (Manual) (50-75) % Band Neutrophils % (0-2) % Lymphocytes % (Manual) (20-40) % Monocytes % (Manual) (0-10) % Platelet Estimate (NORMAL) RBC Morphology Sodium 132 (132-148) mmol/L Potassium 2.9 L (3.6-5.2) mmol/L Chloride 97 L (98-107) mmol/L Carbon Dioxide 25 (22-30) mmol/L Anion Gap 13 (10-20) BUN < 2 L (9-20) mg/dL Creatinine 0.5 L (0.8-1.5) MG/DL Est GFR ( Amer) > 60 Est GFR (Non-Af Amer) > 60 POC Glucose (mg/dL) 78 90 (65-110) mg/dL Random Glucose 102 (75-110) mg/dL Calcium 8.8 (8.6-10.4) mg/dl Phosphorus 1.9 L (2.5-4.5) mg/dL Magnesium 1.2 L (1.6-2.3) mg/dL Total Bilirubin 1.2 (0.2-1.3) mg/dL AST 38 (17-59) U/L ALT 35 (21-72) U/L Alkaline Phosphatase 142 H (38-126) U/L Total Protein 6.7 (6.3-8.3) g/dL Albumin 2.9 L (3.5-5.0) g/dL Globulin 3.8 (2.2-3.9) gm/dL Albumin/Globulin Ratio 0.8 L (1.0-2.1) 03/07/17 03/07/17 03/06/17 Range/Units 04:44 00:48 16:16 WBC 13.1 H (4.8-10.8) K/uL RBC 3.53 L (4.40-5.90) Mil/uL Hgb 11.3 L (12.0-18.0) g/dL Hct 33.8 L (35.0-51.0) % MCV 95.7 H D (80.0-94.0) fL MCH 32.0 H (27.0-31.0) pg MCHC 33.4 (33.0-37.0) g/dL RDW 13.5 (11.5-14.5) % Plt Count 54 L (130-400) K/uL MPV 11.1 (7.2-11.7) fL Neut % (Auto) 86.8 H (50.0-75.0) % Lymph % (Auto) 6.1 L (20.0-40.0) % [place] % (Auto) 5.5 (0.0-10.0) % Eos % (Auto) 0.9 (0.0-4.0) % Baso % (Auto) 0.7 (0.0-2.0) % Neut # 11.3 H (1.8-7.0) K/uL Lymph # 0.8 L (1.0-4.3) K/uL [place] # 0.7 (0.0-0.8) K/uL Eos # 0.1 (0.0-0.7) K/uL Baso # 0.1 (0.0-0.2) K/uL Neutrophils % (Manual) 82 H (50-75) % Band Neutrophils % 9 H (0-2) % Lymphocytes % (Manual) 6 L (20-40) % Monocytes % (Manual) 3 (0-10) % Platelet Estimate Decreased L (NORMAL) RBC Morphology Normal Sodium (132-148) mmol/L Potassium (3.6-5.2) mmol/L Chloride (98-107) mmol/L Carbon Dioxide (22-30) mmol/L Anion Gap (10-20) BUN (9-20) mg/dL Creatinine (0.8-1.5) MG/DL Est GFR ( Amer) Est GFR (Non-Af Amer) POC Glucose (mg/dL) 110 85 (65-110) mg/dL Random Glucose (75-110) mg/dL Calcium (8.6-10.4) mg/dl Phosphorus (2.5-4.5) mg/dL Magnesium (1.6-2.3) mg/dL Total Bilirubin (0.2-1.3) mg/dL AST (17-59) U/L ALT (21-72) U/L Alkaline Phosphatase (38-126) U/L Total Protein (6.3-8.3) g/dL Albumin (3.5-5.0) g/dL Globulin (2.2-3.9) gm/dL Albumin/Globulin Ratio (1.0-2.1) Laboratory Results - last 24 hr 03/06/17 03/07/17 03/07/17 16:16 00:48 04:44 WBC 13.1 H RBC 3.53 L Hgb 11.3 L Hct 33.8 L MCV 95.7 H D MCH 32.0 H MCHC 33.4 RDW 13.5 Plt Count 54 L MPV 11.1 Neut % (Auto) 86.8 H Lymph % (Auto) 6.1 L [place] % (Auto) 5.5 Eos % (Auto) 0.9 Baso % (Auto) 0.7 Neut # 11.3 H Lymph # 0.8 L [place] # 0.7 Eos # 0.1 Baso # 0.1 Neutrophils % (Manual) 82 H Band Neutrophils % 9 H Lymphocytes % (Manual) 6 L Monocytes % (Manual) 3 Platelet Estimate Decreased L RBC Morphology Normal Sodium Potassium Chloride Carbon Dioxide Anion Gap BUN Creatinine Est GFR ( Amer) Est GFR (Non-Af Amer) POC Glucose (mg/dL) 85 110 Random Glucose Calcium Phosphorus Magnesium Total Bilirubin AST ALT Alkaline Phosphatase Total Protein Albumin Globulin Albumin/Globulin Ratio 03/07/17 03/07/1717 04:44 06:26 11:28 WBC RBC Hgb Hct MCV MCH MCHC RDW Plt Count MPV Neut % (Auto) Lymph % (Auto) [place] % (Auto) Eos % (Auto) Baso % (Auto) Neut # Lymph # [place] # Eos # Baso # Neutrophils % (Manual) Band Neutrophils % Lymphocytes % (Manual) Monocytes % (Manual) Platelet Estimate RBC Morphology Sodium 132 Potassium 2.9 L Chloride 97 L Carbon Dioxide 25 Anion Gap 13 BUN < 2 L Creatinine 0.5 L Est GFR ( Amer) > 60 Est GFR (Non-Af Amer) > 60 POC Glucose (mg/dL) 90 78 Random Glucose 102 Calcium 8.8 Phosphorus 1.9 L Magnesium 1.2 L Total Bilirubin 1.2 AST 38 ALT 35 Alkaline Phosphatase 142 H Total Protein 6.7 Albumin 2.9 L Globulin 3.8 Albumin/Globulin Ratio 0.8 L Fingerstick Blood Sugar Results: 90 Review of Systems - Constitutional Constitutional: absent: Fever - Cardiovascular Cardiovascular: absent: Chest Pain, Dyspnea - Respiratory Respiratory: absent: Dyspnea - Gastrointestinal Gastrointestinal: absent: Abdominal Pain, Constipation, Diarrhea, Nausea, Vomiting - Neurological Neurological: absent: Dizziness, Headaches Critical Care Progress Note - Nutrition Nutrition: Nutrition Category Date Time Status NPO Diet [DIET] Diets 03/05/17 Breakfast Active Assessment/Plan (1) Sepsis Assessment and plan: 41 year old male with past medical history of alcoholism, seizures secondary to alcohol withdrawal, pneumonia, and electrolyte imbalance, presented to the ED with tremors, DTs, and was admitted as Code Sepsis. Patient's last drink was the morning before going to ED. Neuro: lethargic, oriented to person, but not time or place Pulm: Sepsis, likely secondary to pneumonia - CXR: patchy infiltrate in right mid to lower lung field. possible small right effusion; suspect minor left basilar atelectasis, possible developing left lower lobe infiltrate CV: - Monitor vitals - ECHO: EF of 50-60%, trace to mild tricuspid regurg - IV Fluids + Multivitamin/ Folic Acid/Thiamine Endo: no acute issues - Monitor blood glucose GI: NPO - Resolved- As per nurse, Diarrhea: C.Diff negative - Pepcid Heme: Thrombocytopenia - Platelet count improving- 54 - Monitor H/H/platelets Renal: - Monitor renal function - Hypokalemia: KCl given ID: CODE Sepsis likely secondary to pneumonia - Bandemia: 27--> improving, 9 - Continue Zosyn, Vanco - Blood cx: negative for 48hrs Psych: Alcohol withdrawal/ DTs - Alcohol: 175 at admission - Ativan - Librium started today - Monitor - Psychiatry consulted: Dr. Skinner, help appreciated Skin: - Scrotal rash--> apply Nystatin TID Prophylaxis: - DVT: SCDs; C/I due to thrombocytopenia - GI: pepcid Current Visit: Yes Status: Acute <Sascha Gomez - Last Filed: 03/07/17 16:17> CCU Objective - Vital Signs / Intake & Output Vital Signs (Last 4 hours): Vital Signs Pulse Resp BP Pulse Ox 03/07/17 14:01 84 20 145/97 H 86 L 03/07/17 14:00 89 15 90 L 03/07/17 13:00 83 20 145/96 H 100 Intake and Output (Last 8hrs): Intake & Output 03/07/17 03/07/17 03/07/17 06:59 14:59 22:59 Intake Total 1200 1576 Output Total 1575 1450 Balance -375 126 Weight 154 lb Intake: Intake, IV Amount 1200 1576 Left Forearm 800 226 Left Forearm Y-site 400 600 Right Hand 750 Oral 0 Output: Urine 1575 1450 Condom 1575 1450 - Medications Active Medications: Active Medications Generic Name Dose Route Start Last Admin Trade Name Freq PRN Reason Stop Dose Admin Chlordiazepoxide 25 mg 03/06/17 09:23 03/06/17 16:59 Librium PO 25 mg Q8 PRN Administration Agitation Famotidine 20 mg 03/05/17 10:00 03/07/17 09:39 Pepcid IVP 20 mg Q12 XAVI Administration Vancomycin HCl 1,000 mg/ 250 mls @ 166.6 mls/hr 03/05/17 00:30 03/07/17 13:11 Sodium Chloride IVPB 166.6 mls/hr Q12H XAVI Administration Piperacillin Sod/Tazobactam Sod 3.375 gm in 50 mls @ 100 mls/hr 03/05/17 11: 00 03/07/17 10:22 Zosyn 3.375 Gm Iv Premix IVPB 100 mls/hr Q6H XAVI Administration Folic Acid 1 mg/ Thiamine HCl 1,011.2 mls @ 50 mls/hr 03/06/17 10:00 09:35 100 mg/ Multivitamins/Vitamin IV 50 mls/hr C 10 ml/ Dextrose DAILY XAVI Administration Dextrose/Sodium Chloride 1,000 mls @ 100 mls/hr 03/06/17 00:30 03/07/17 06:44 Dextrose 5%/0.9% Ns 1000 Ml IV Not Given .Q10H XAVI Lorazepam 2 mg 03/05/17 00:18 03/06/17 21:36 Ativan IVP 2 mg Q2 PRN Administration Anxiety Nystatin 1 ea 03/06/17 10:00 03/07/17 13:09 Mycostatin Cream TOP 1 ea TID XAVI Administration - Patient Studies Lab Studies: Lab Studies 03/07/17 03/07/17 03/07/17 Range/Units 11:28 06:26 04:44 WBC (4.8-10.8) K/uL RBC (4.40-5.90) Mil/uL Hgb (12.0-18.0) g/dL Hct (35.0-51.0) % MCV (80.0-94.0) fL MCH (27.0-31.0) pg MCHC (33.0-37.0) g/dL RDW (11.5-14.5) % Plt Count (130-400) K/uL MPV (7.2-11.7) fL Neut % (Auto) (50.0-75.0) % Lymph % (Auto) (20.0-40.0) % [place] % (Auto) (0.0-10.0) % Eos % (Auto) (0.0-4.0) % Baso % (Auto) (0.0-2.0) % Neut # (1.8-7.0) K/uL Lymph # (1.0-4.3) K/uL [place] # (0.0-0.8) K/uL Eos # (0.0-0.7) K/uL Baso # (0.0-0.2) K/uL Neutrophils % (Manual) (50-75) % Band Neutrophils % (0-2) % Lymphocytes % (Manual) (20-40) % Monocytes % (Manual) (0-10) % Platelet Estimate (NORMAL) RBC Morphology Sodium 132 (132-148) mmol/L Potassium 2.9 L (3.6-5.2) mmol/L Chloride 97 L (98-107) mmol/L Carbon Dioxide 25 (22-30) mmol/L Anion Gap 13 (10-20) BUN < 2 L (9-20) mg/dL Creatinine 0.5 L (0.8-1.5) MG/DL Est GFR ( Amer) > 60 Est GFR (Non-Af Amer) > 60 POC Glucose (mg/dL) 78 90 (65-110) mg/dL Random Glucose 102 (75-110) mg/dL Calcium 8.8 (8.6-10.4) mg/dl Phosphorus 1.9 L (2.5-4.5) mg/dL Magnesium 1.2 L (1.6-2.3) mg/dL Total Bilirubin 1.2 (0.2-1.3) mg/dL AST 38 (17-59) U/L ALT 35 (21-72) U/L Alkaline Phosphatase 142 H (38-126) U/L Total Protein 6.7 (6.3-8.3) g/dL Albumin 2.9 L (3.5-5.0) g/dL Globulin 3.8 (2.2-3.9) gm/dL Albumin/Globulin Ratio 0.8 L (1.0-2.1) 03/07/17 03/07/17 03/06/17 Range/Units 04:44 00:48 16:16 WBC 13.1 H (4.8-10.8) K/uL RBC 3.53 L (4.40-5.90) Mil/uL Hgb 11.3 L (12.0-18.0) g/dL Hct 33.8 L (35.0-51.0) % MCV 95.7 H D (80.0-94.0) fL MCH 32.0 H (27.0-31.0) pg MCHC 33.4 (33.0-37.0) g/dL RDW 13.5 (11.5-14.5) % Plt Count 54 L (130-400) K/uL MPV 11.1 (7.2-11.7) fL Neut % (Auto) 86.8 H (50.0-75.0) % Lymph % (Auto) 6.1 L (20.0-40.0) % [place] % (Auto) 5.5 (0.0-10.0) % Eos % (Auto) 0.9 (0.0-4.0) % Baso % (Auto) 0.7 (0.0-2.0) % Neut # 11.3 H (1.8-7.0) K/uL Lymph # 0.8 L (1.0-4.3) K/uL [place] # 0.7 (0.0-0.8) K/uL Eos # 0.1 (0.0-0.7) K/uL Baso # 0.1 (0.0-0.2) K/uL Neutrophils % (Manual) 82 H (50-75) % Band Neutrophils % 9 H (0-2) % Lymphocytes % (Manual) 6 L (20-40) % Monocytes % (Manual) 3 (0-10) % Platelet Estimate Decreased L (NORMAL) RBC Morphology Normal Sodium (132-148) mmol/L Potassium (3.6-5.2) mmol/L Chloride (98-107) mmol/L Carbon Dioxide (22-30) mmol/L Anion Gap (10-20) BUN (9-20) mg/dL Creatinine (0.8-1.5) MG/DL Est GFR ( Amer) Est GFR (Non-Af Amer) POC Glucose (mg/dL) 110 85 (65-110) mg/dL Random Glucose (75-110) mg/dL Calcium (8.6-10.4) mg/dl Phosphorus (2.5-4.5) mg/dL Magnesium (1.6-2.3) mg/dL Total Bilirubin (0.2-1.3) mg/dL AST (17-59) U/L ALT (21-72) U/L Alkaline Phosphatase (38-126) U/L Total Protein (6.3-8.3) g/dL Albumin (3.5-5.0) g/dL Globulin (2.2-3.9) gm/dL Albumin/Globulin Ratio (1.0-2.1) Laboratory Results - last 24 hr 08/15/17 08/16/17 08/16/17 16:16 00:48 04:44 WBC 13.1 H RBC 3.53 L Hgb 11.3 L Hct 33.8 L MCV 95.7 H D MCH 32.0 H MCHC 33.4 RDW 13.5 Plt Count 54 L MPV 11.1 Neut % (Auto) 86.8 H Lymph % (Auto) 6.1 L [place] % (Auto) 5.5 Eos % (Auto) 0.9 Baso % (Auto) 0.7 Neut # 11.3 H Lymph # 0.8 L [place] # 0.7 Eos # 0.1 Baso # 0.1 Neutrophils % (Manual) 82 H Band Neutrophils % 9 H Lymphocytes % (Manual) 6 L Monocytes % (Manual) 3 Platelet Estimate Decreased L RBC Morphology Normal Sodium Potassium Chloride Carbon Dioxide Anion Gap BUN Creatinine Est GFR ( Amer) Est GFR (Non-Af Amer) POC Glucose (mg/dL) 85 110 Random Glucose Calcium Phosphorus Magnesium Total Bilirubin AST ALT Alkaline Phosphatase Total Protein Albumin Globulin Albumin/Globulin Ratio 03/07/17 03/07/17 03/07/17 04:44 06:26 11:28 WBC RBC Hgb Hct MCV MCH MCHC RDW Plt Count MPV Neut % (Auto) Lymph % (Auto) [place] % (Auto) Eos % (Auto) Baso % (Auto) Neut # Lymph # [place] # Eos # Baso # Neutrophils % (Manual) Band Neutrophils % Lymphocytes % (Manual) Monocytes % (Manual) Platelet Estimate RBC Morphology Sodium 132 Potassium 2.9 L Chloride 97 L Carbon Dioxide 25 Anion Gap 13 BUN < 2 L Creatinine 0.5 L Est GFR ( Amer) > 60 Est GFR (Non-Af Amer) > 60 POC Glucose (mg/dL) 90 78 Random Glucose 102 Calcium 8.8 Phosphorus 1.9 L Magnesium 1.2 L Total Bilirubin 1.2 AST 38 ALT 35 Alkaline Phosphatase 142 H Total Protein 6.7 Albumin 2.9 L Globulin 3.8 Albumin/Globulin Ratio 0.8 L Critical Care Progress Note - Nutrition Nutrition: Nutrition Category Date Time Status NPO Diet [DIET] Diets 03/05/17 Breakfast Active Attending/Attestation - Attestation I have personally seen and examined this patient.: Yes I have fully participated in the care of the patient.: Yes I have reviewed all pertinent clinical information: Yes Notes (Text): 08/16/17 16:03 Patient seen and examined in the intensive care unit. Case discussed with house staff in the morning rounds. Continue Ativan and Librium Continue IV fluid/banana bag Potassium and magnesium supplement Continue IV antibiotics for right lower lung infiltrate and follow-up chest x- ray
[2017-03-07 16:02] LABS: CHLORIDE 96 mmol/L (98-107); SODIUM 130 mmol/L (132-148)
[2017-03-07 16:04] LABS: GFR AFRICAN-AMERICAN > 60
[2017-03-07 16:05] LABS: BLOOD UREA NITROGEN 3 mg/dL (9-20); CALCIUM 9.1 mg/dl (8.6-10.4); CARBON DIOXIDE 25 mmol/L (22-30); GLUCOSE,RANDOM 90 mg/dL (75-110)
--- NOTE | 2017-03-07 18:08 | CP.PCM.PN ---
Subjective - Date & Time of Evaluation Date of Evaluation: 03/07/17 Time of Evaluation: 14:20 - Subjective Subjective: clinically same Objective - Vital Signs/Intake and Output Vital Signs (last 24 hours): Temp Pulse Resp BP Pulse Ox 97.7 F 94 H 20 147/91 H 97 03/07/17 16:00 03/07/17 16:02 03/07/17 16:02 03/07/17 16:02 03/07/17 16:02 Intake and Output: 03/07/17 03/07/17 06:59 18:59 Intake Total 1800 2001 Output Total 2400 1850 Balance -600 152 - Medications Medications: Current Medications Chlordiazepoxide (Librium) 25 mg PO Q8 PRN PRN Reason: Agitation Last Admin: 03/06/17 16:59 Dose: 25 mg Famotidine (Pepcid) 20 mg IVP Q12 [facility] Last Admin: 03/07/17 09:39 Dose: 20 mg Vancomycin HCl 1,000 mg/ (Sodium Chloride) 250 mls @ 166.6 mls/hr IVPB Q12H XAVI Last Admin: 03/07/17 13:11 Dose: 166.6 mls/hr Piperacillin Sod/Tazobactam Sod (Zosyn 3.375 Gm Iv Premix) 3.375 gm in 50 mls @ 100 mls/hr IVPB Q6H XAVI Last Admin: 03/07/17 17:08 Dose: 100 mls/hr Folic Acid 1 mg/ Thiamine HCl 100 mg/ Multivitamins/Vitamin C 10 ml/ Dextrose 1 ,011.2 mls @ 50 mls/hr IV DAILY XAVI Last Admin: 03/07/17 09:35 Dose: 50 mls/hr Dextrose/Sodium Chloride (Dextrose 5%/0.9% Ns 1000 Ml) 1,000 mls @ 100 mls/hr IV .Q10H XAVI Last Admin: 03/07/17 16:41 Dose: Not Given Lorazepam (Ativan) 2 mg IVP Q2 PRN PRN Reason: Anxiety Last Admin: 03/07/17 17:38 Dose: 2 mg Nicotine (Nicoderm Cq) 1 patch TD DAILY [facility] Last Admin: 03/07/17 17:14 Dose: 1 patch Nystatin (Mycostatin Cream) 1 ea TOP TID [facility] Last Admin: 03/07/17 17:08 Dose: 1 ea - Labs Labs: 03/07/17 04:44 03/07/17 15:46 - Constitutional Appears: Well - Head Exam Head Exam: ATRAUMATIC, NORMAL INSPECTION, NORMOCEPHALIC - Eye Exam Eye Exam: EOMI, Normal appearance, PERRL Pupil Exam: NORMAL ACCOMODATION, PERRL - ENT Exam ENT Exam: Mucous Membranes Moist, Normal Exam - Neck Exam Neck Exam: Full ROM, Normal Inspection. absent: Lymphadenopathy - Respiratory Exam Respiratory Exam: Decreased Breath Sounds - Cardiovascular Exam Cardiovascular Exam: REGULAR RHYTHM, +S1, +S2 - GI/Abdominal Exam GI & Abdominal Exam: Soft, Diminished Bowel Sounds - Rectal Exam Rectal Exam: Deferred
[2017-03-08] MEDS: Dextrose 5%/0.9% NS 1,000 ML IV SCH ×2 (00:34→01:42)
[2017-03-08] MEDS: Piperacill/Tazo 3.375gm in Dex 3.375 GM/50 ML BAG IVPB SCH ×4 (04:23→22:25)
[2017-03-08 06:35] LABS: BASO # 0.1 K/uL (0.0-0.2); EOS # 0.1 K/uL (0.0-0.7); EOS % 1.8 % (0.0-4.0); HEMATOCRIT 31.1 % (35.0-51.0); LYMPH # 0.9 K/uL (1.0-4.3); MEAN CELL VOLUME 94.5 fL (80.0-94.0); MEAN CORPUSCULAR HEMOGLOBIN 32.2 pg (27.0-31.0); MEAN CORPUSCULAR HGB CONC 34.1 g/dL (33.0-37.0); MONO # 1.4 K/uL (0.0-0.8); MONO % 20.2 % (0.0-10.0); PLATELET COUNT 86 K/uL (130-400); RED CELL DISTRIBUTION WIDTH 12.8 % (11.5-14.5); WHITE BLOOD COUNT 6.8 K/uL (4.8-10.8)
[2017-03-08 06:48] LABS: ALB/GLOB RATIO 0.8 (1.0-2.1); ALKALINE PHOSPHATASE 117 U/L (38-126); ALT/SGPT 30 U/L (21-72); AST/SGOT 32 U/L (17-59); BILIRUBIN,TOTAL 1.1 mg/dL (0.2-1.3); BLOOD UREA NITROGEN 3 mg/dL (9-20); CALCIUM 8.7 mg/dl (8.6-10.4); CARBON DIOXIDE 22 mmol/L (22-30); CHLORIDE 97 mmol/L (98-107); GFR AFRICAN-AMERICAN > 60; GLUCOSE,RANDOM 91 mg/dL (75-110); MAGNESIUM 1.2 mg/dL (1.6-2.3); PHOSPHOROUS 2.8 mg/dL (2.5-4.5); POTASSIUM 2.6 mmol/L (3.6-5.2); SODIUM 130 mmol/L (132-148); TOTAL PROTEIN 6.4 g/dL (6.3-8.3)
[2017-03-08 08:30] LABS: EOSINOPHIL 1 % (0-4); NEUTROPHIL 66 % (50-75); REACTIVE LYMPHOCYTES 1 % (0-0); TOTAL CELLS COUNTED 100
[2017-03-08 08:32] LABS: LARGE PLATELETS PRESENT; STOMATOCYTES SLIGHT
--- NOTE | 2017-03-08 09:11 | RAD ---
HISTORY: pneumonia COMPARISON: 03/05/2017 FINDINGS: LUNGS: There is interval improvement in right lower lobe pneumonia with residual consolidation in the lower lobe. The left lung is clear. PLEURA: There is a persistent small right pleural effusion. No large left pleural effusion. No pneumothorax with CARDIOVASCULAR: Normal. OSSEOUS STRUCTURES: No significant abnormalities. VISUALIZED UPPER ABDOMEN: Normal. OTHER FINDINGS: None. IMPRESSION: Improving right lower lobe pneumonia and persistent small right pleural effusion. Follow-up to resolution is advised.
[2017-03-08] MEDS: Magnesium Sulfate 1 gm in D5W 1 GM/100 ML BAG IVPB SCH ×2 (09:38→10:01)
[2017-03-08] MEDS: Nystatin 100,000 Units/gm Cream(15 gm) TOP SCH ×3 (09:39→17:03)
[2017-03-08] MEDS: Potassium Chl 40 mEq in D5-1/2 1,000 ML IV SCH ×4 (11:00→22:19)
--- NOTE | 2017-03-08 11:48 | CP.CCUPN ---
<MandeepThalia rayari RigoGiorgio - Last Filed: 03/08/17 11:39> CCU Subjective - Physician Review Subjective (Free Text): Patient was seen and examined at bedside in the morning. Patient was in no acute distress. Patient is confused and mumbling in response to questions. Patient denies having chest pain, abdominal pain, fevers, shortness of breath, tremors, hallucinations, nausea, vomiting and diarrhea. 03/08/17 11:39 CCU Objective - Vital Signs / Intake & Output Vital Signs (Last 4 hours): Vital Signs Temp Pulse Resp BP Pulse Ox 03/08/17 10:00 96 H 20 94 L 03/08/17 09:40 90 15 133/99 H 03/08/17 08:41 113 H 18 131/93 H 90 L 03/08/17 08:00 98.1 F 106 H 19 91 L 03/08/17 07:40 111 H 22 125/95 H 91 L Intake and Output (Last 8hrs): Intake & Output 03/07/17 03/08/17 03/08/17 22:59 06:59 14:59 Intake Total 1376 1300 700 Output Total 1400 920 775 Balance -24 380 -75 Weight 154 lb 4.8 oz Intake: Intake, IV Amount 1376 1300 700 Left Forearm 326 400 200 Left Forearm Y-site 550 900 500 Right Hand 500 Oral 0 Output: Urine 1400 920 775 Condom 1400 920 775 Other: # Voids Condom 1 # Bowel Movements 0 0 0 - Physical Exam Head: Positive for: Atraumatic, Normocephalic Extroacular Muscles: Positive for: EOMI Mouth: Positive for: Moist Mucous Membranes Respiratory/Chest: Positive for: Decreased Breath Sounds, Rales, Rhonchi. Negative for: Clear to Auscultation Cardiovascular: Positive for: Regular Rate and Rhythm, Normal S1, S2, Tachycardic. Negative for: Murmurs Abdomen: Negative for: Tenderness, Distention, Normal Bowel Sounds (decreased) Upper Extremity: Positive for: Normal Inspection. Negative for: Edema Lower Extremity: Positive for: Normal Inspection, NORMAL PULSES. Negative for: Edema Skin: Positive for: Warm, Dry, Normal Color Psychiatric: Positive for: Alert. Negative for: Oriented x 3, Normal Concentration - Medications Active Medications: Active Medications Generic Name Dose Route Start Last Admin Trade Name Freq PRN Reason Stop Dose Admin Chlordiazepoxide 25 mg 03/06/17 09:23 03/06/17 16:59 Librium PO 25 mg Q8 PRN Administration Agitation Famotidine 20 mg 03/05/17 10:00 03/08/17 09:37 Pepcid IVP 20 mg Q12 XAVI Administration Piperacillin Sod/Tazobactam Sod 3.375 gm in 50 mls @ 100 mls/hr 03/05/17 11: 00 03/08/17 04:23 Zosyn 3.375 Gm Iv Premix IVPB 100 mls/hr Q6H XAVI Administration Potassium Chloride/Dextrose/Sod Cl 1,000 mls @ 100 mls/hr 03/08/17 09:30 Potassium Chl 40 Meq In D5-1/2ns IV .Q10H XAVI Potassium Chloride 20 meq in 100 mls @ 50 mls/hr 03/08/17 09:30 03/08/17 09: 38 Potassium Chloride 20 Meq/100 Ml IVPB 03/08/17 13:29 50 mls/hr Q2H XAVI Administration Lorazepam 2 mg 03/08/17 01:47 03/08/17 06:21 Ativan IVP 2 mg Q1H PRN Administration Anxiety Nicotine 1 patch 03/07/17 17:00 03/08/17 09:38 Nicoderm Cq TD 1 patch DAILY XAVI Administration Nystatin 1 ea 03/06/17 10:00 03/08/17 09:39 Mycostatin Cream TOP 1 ea TID XAVI Administration - Patient Studies Lab Studies: Lab Studies 03/08/17 03/08/17 03/08/17 Range/Units 08:37 06:27 06:20 WBC 6.8 (4.8-10.8) K/uL RBC 3.29 L (4.40-5.90) Mil/uL Hgb 10.6 L (12.0-18.0) g/dL Hct 31.1 L (35.0-51.0) % MCV 94.5 H (80.0-94.0) fL MCH 32.2 H (27.0-31.0) pg MCHC 34.1 (33.0-37.0) g/dL RDW 12.8 (11.5-14.5) % Plt Count 86 L D (130-400) K/uL MPV 10.0 (7.2-11.7) fL Neut % (Auto) 64.0 (50.0-75.0) % Lymph % (Auto) 13.0 L (20.0-40.0) % Dixie % (Auto) 20.2 H (0.0-10.0) % Eos % (Auto) 1.8 (0.0-4.0) % Baso % (Auto) 1.0 (0.0-2.0) % Neut # 4.4 (1.8-7.0) K/uL Lymph # 0.9 L (1.0-4.3) K/uL Dixie # 1.4 H (0.0-0.8) K/uL Eos # 0.1 (0.0-0.7) K/uL Baso # 0.1 (0.0-0.2) K/uL Neutrophils % (Manual) 66 (50-75) % Lymphocytes % (Manual) 15 L (20-40) % Reactive Lymphs % 1 H (0-0) % Monocytes % (Manual) 17 H (0-10) % Eosinophils % (Manual) 1 (0-4) % Platelet Estimate Decreased L (NORMAL) Large Platelets Present Stomatocytes Slight Sodium 130 L (132-148) mmol/L Potassium 2.6 L (3.6-5.2) mmol/L Chloride 97 L (98-107) mmol/L Carbon Dioxide 22 (22-30) mmol/L Anion Gap 14 (10-20) BUN 3 L (9-20) mg/dL Creatinine 0.5 L (0.8-1.5) MG/DL Est GFR ( Amer) > 60 Est GFR (Non-Af Amer) > 60 POC Glucose (mg/dL) 107 (65-110) mg/dL Random Glucose 91 (75-110) mg/dL Calcium 8.7 (8.6-10.4) mg/dl Phosphorus 2.8 (2.5-4.5) mg/dL Magnesium 1.2 L (1.6-2.3) mg/dL Total Bilirubin 1.1 (0.2-1.3) mg/dL AST 32 (17-59) U/L ALT 30 (21-72) U/L Alkaline Phosphatase 117 (38-126) U/L Total Protein 6.4 (6.3-8.3) g/dL Albumin 2.9 L (3.5-5.0) g/dL Globulin 3.6 (2.2-3.9) gm/dL Albumin/Globulin Ratio 0.8 L (1.0-2.1) 03/07/17 03/07/17 Range/Units 17:46 15:46 WBC (4.8-10.8) K/uL RBC (4.40-5.90) Mil/uL Hgb (12.0-18.0) g/dL Hct (35.0-51.0) % MCV (80.0-94.0) fL MCH (27.0-31.0) pg MCHC (33.0-37.0) g/dL RDW (11.5-14.5) % Plt Count (130-400) K/uL MPV (7.2-11.7) fL Neut % (Auto) (50.0-75.0) % Lymph % (Auto) (20.0-40.0) % Dixie % (Auto) (0.0-10.0) % Eos % (Auto) (0.0-4.0) % Baso % (Auto) (0.0-2.0) % Neut # (1.8-7.0) K/uL Lymph # (1.0-4.3) K/uL Dixie # (0.0-0.8) K/uL Eos # (0.0-0.7) K/uL Baso # (0.0-0.2) K/uL Neutrophils % (Manual) (50-75) % Lymphocytes % (Manual) (20-40) % Reactive Lymphs % (0-0) % Monocytes % (Manual) (0-10) % Eosinophils % (Manual) (0-4) % Platelet Estimate (NORMAL) Large Platelets Stomatocytes Sodium 130 L (132-148) mmol/L Potassium 4.0 (3.6-5.2) mmol/L Chloride 96 L (98-107) mmol/L Carbon Dioxide 25 (22-30) mmol/L Anion Gap 13 (10-20) BUN 3 L (9-20) mg/dL Creatinine 0.5 L (0.8-1.5) MG/DL Est GFR ( Amer) > 60 Est GFR (Non-Af Amer) > 60 POC Glucose (mg/dL) 75 (65-110) mg/dL Random Glucose 90 (75-110) mg/dL Calcium 9.1 (8.6-10.4) mg/dl Phosphorus (2.5-4.5) mg/dL Magnesium (1.6-2.3) mg/dL Total Bilirubin (0.2-1.3) mg/dL AST (17-59) U/L ALT (21-72) U/L Alkaline Phosphatase (38-126) U/L Total Protein (6.3-8.3) g/dL Albumin (3.5-5.0) g/dL Globulin (2.2-3.9) gm/dL Albumin/Globulin Ratio (1.0-2.1) Laboratory Results - last 24 hr 03/07/17 03/07/17 03/08/17 15:46 17:46 06:20 WBC RBC Hgb Hct MCV MCH MCHC RDW Plt Count MPV Neut % (Auto) Lymph % (Auto) Dixie % (Auto) Eos % (Auto) Baso % (Auto) Neut # Lymph # Dixie # Eos # Baso # Neutrophils % (Manual) Lymphocytes % (Manual) Reactive Lymphs % Monocytes % (Manual) Eosinophils % (Manual) Platelet Estimate Large Platelets Stomatocytes Sodium 130 L 130 L Potassium 4.0 2.6 L Chloride 96 L 97 L Carbon Dioxide 25 22 Anion Gap 13 14 BUN 3 L 3 L Creatinine 0.5 L 0.5 L Est GFR ( Amer) > 60 > 60 Est GFR (Non-Af Amer) > 60 > 60 POC Glucose (mg/dL) 75 Random Glucose 90 91 Calcium 9.1 8.7 Phosphorus 2.8 Magnesium 1.2 L Total Bilirubin 1.1 AST 32 ALT 30 Alkaline Phosphatase 117 Total Protein 6.4 Albumin 2.9 L Globulin 3.6 Albumin/Globulin Ratio 0.8 L 03/08/17 03/08/17 06:27 08:37 WBC 6.8 RBC 3.29 L Hgb 10.6 L Hct 31.1 L MCV 94.5 H MCH 32.2 H MCHC 34.1 RDW 12.8 Plt Count 86 L D MPV 10.0 Neut % (Auto) 64.0 Lymph % (Auto) 13.0 L Dixie % (Auto) 20.2 H Eos % (Auto) 1.8 Baso % (Auto) 1.0 Neut # 4.4 Lymph # 0.9 L Dixie # 1.4 H Eos # 0.1 Baso # 0.1 Neutrophils % (Manual) 66 Lymphocytes % (Manual) 15 L Reactive Lymphs % 1 H Monocytes % (Manual) 17 H Eosinophils % (Manual) 1 Platelet Estimate Decreased L Large Platelets Present Stomatocytes Slight Sodium Potassium Chloride Carbon Dioxide Anion Gap BUN Creatinine Est GFR ( Amer) Est GFR (Non-Af Amer) POC Glucose (mg/dL) 107 Random Glucose Calcium Phosphorus Magnesium Total Bilirubin AST ALT Alkaline Phosphatase Total Protein Albumin Globulin Albumin/Globulin Ratio Fingerstick Blood Sugar Results: 91 Review of Systems - Constitutional Constitutional: absent: Fever - EENT Ears: absent: Dizziness - Cardiovascular Cardiovascular: absent: Chest Pain, Dyspnea - Respiratory Respiratory: absent: Dyspnea - Gastrointestinal Gastrointestinal: absent: Abdominal Pain, Constipation, Diarrhea, Nausea, Vomiting - Neurological Neurological: absent: Dizziness, Headaches Critical Care Progress Note - Nutrition Nutrition: Nutrition Category Date Time Status NPO Diet [DIET] Diets 03/05/17 Breakfast Active Assessment/Plan (1) Sepsis Assessment and plan: 41 year old male with past medical history of alcoholism, seizures secondary to alcohol withdrawal, pneumonia, and electrolyte imbalance, presented to the ED with tremors, DTs, and was admitted as Code Sepsis. Patient's last drink was the morning before going to ED. Neuro: lethargic, oriented to person, but not time or place Pulm: Sepsis, likely secondary to pneumonia - CXR: patchy infiltrate in right mid to lower lung field. possible small right effusion; suspect minor left basilar atelectasis, possible developing left lower lobe infiltrate CV: - Monitor vitals - ECHO: EF of 50-60%, trace to mild tricuspid regurg - IV Fluids + K+ 40mEq Endo: no acute issues - Monitor blood glucose GI: NPO - Resolved- As per nurse, Diarrhea: C.Diff negative - Pepcid - Swallow eval: f/u - F/u amylase, lipase to r/o pancreatitis Heme: Thrombocytopenia - Platelet count improving- 86 - Monitor H/H/platelets Renal: - Monitor renal function - Hypokalemia: KCl given - Hypomagnesemia: Mg sulfate 1 gm given ID: CODE Sepsis likely secondary to pneumonia - Leukocytosis improving - Bandemia: 27--> improving, 9 - Continue Zosyn, (discontinued Vanco) - Blood cx: negative for 3days Psych: Alcohol withdrawal/ DTs - Alcohol: 175 at admission - Ativan - Librium started today - Monitor - Psychiatry consulted: Dr. Skinner, help appreciated Skin: - Scrotal rash--> apply Nystatin TID Prophylaxis: - DVT: SCDs; C/I due to thrombocytopenia - GI: pepcid Current Visit: Yes Status: Acute <Jose Manuel Cunningham - Last Filed: 03/08/17 18:51> CCU Objective - Vital Signs / Intake & Output Vital Signs (Last 4 hours): Vital Signs Temp Pulse Resp BP Pulse Ox 03/08/17 18:00 98 H 14 81 L 03/08/17 17:40 109 H 22 137/93 H 87 L 03/08/17 17:03 91 H 19 137/97 H 91 L 03/08/17 17:00 90 15 88 L 03/08/17 16:00 98.0 F 88 18 98 03/08/17 15:40 88 17 147/101 H 92 L 03/08/17 15:00 105 H 21 97 Intake and Output (Last 8hrs): Intake & Output 03/08/17 03/08/17 03/08/17 06:59 14:59 22:59 Intake Total 1300 1250 500 Output Total 920 1550 750 Balance 380 -300 -250 Weight 154 lb 4.8 oz Intake: Intake, IV Amount 1300 1250 500 Left Forearm 400 350 100 Left Forearm Y-site 900 900 400 Oral 0 0 Output: Urine 920 1550 750 Condom 920 1550 750 Other: # Voids Condom 1 2 # Bowel Movements 0 0 0 - Medications Active Medications: Active Medications Generic Name Dose Route Start Last Admin Trade Name Freq PRN Reason Stop Dose Admin Chlordiazepoxide 25 mg 03/06/17 09:23 03/06/17 16:59 Librium PO 25 mg Q8 PRN Administration Agitation Famotidine 20 mg 03/05/17 10:00 03/08/17 09:37 Pepcid IVP 20 mg Q12 XAVI Administration Piperacillin Sod/Tazobactam Sod 3.375 gm in 50 mls @ 100 mls/hr 03/05/17 11: 00 03/08/17 16:50 Zosyn 3.375 Gm Iv Premix IVPB 100 mls/hr Q6H XAVI Administration Potassium Chloride/Dextrose/Sod Cl 1,000 mls @ 100 mls/hr 03/08/17 09:30 11:00 Potassium Chl 40 Meq In D5-1/2ns IV 100 mls/hr .Q10H XAVI Administration Potassium Chloride 20 meq in 100 mls @ 50 mls/hr 03/08/17 17:00 03/08/17 18: 33 Potassium Chloride 20 Meq/100 Ml IVPB 03/08/17 20:59 50 mls/hr Q2H XAVI Administration Lorazepam 2 mg 03/08/17 01:47 03/08/17 06:21 Ativan IVP 2 mg Q1H PRN Administration Anxiety Nicotine 1 patch 03/07/17 17:00 03/08/17 09:38 Nicoderm Cq TD 1 patch DAILY XAVI Administration Nystatin 1 ea 03/06/17 10:00 03/08/17 17:03 Mycostatin Cream TOP 1 ea TID XAVI Administration - Patient Studies Lab Studies: Lab Studies 03/08/17 03/08/17 03/08/17 Range/Units 17:35 15:04 08:37 WBC (4.8-10.8) K/uL RBC (4.40-5.90) Mil/uL Hgb (12.0-18.0) g/dL Hct (35.0-51.0) % MCV (80.0-94.0) fL MCH (27.0-31.0) pg MCHC (33.0-37.0) g/dL RDW (11.5-14.5) % Plt Count (130-400) K/uL MPV (7.2-11.7) fL Neut % (Auto) (50.0-75.0) % Lymph % (Auto) (20.0-40.0) % Dixie % (Auto) (0.0-10.0) % Eos % (Auto) (0.0-4.0) % Baso % (Auto) (0.0-2.0) % Neut # (1.8-7.0) K/uL Lymph # (1.0-4.3) K/uL Dixie # (0.0-0.8) K/uL Eos # (0.0-0.7) K/uL Baso # (0.0-0.2) K/uL Neutrophils % (Manual) (50-75) % Lymphocytes % (Manual) (20-40) % Reactive Lymphs % (0-0) % Monocytes % (Manual) (0-10) % Eosinophils % (Manual) (0-4) % Platelet Estimate (NORMAL) Large Platelets Stomatocytes Sodium 132 (132-148) mmol/L Potassium 3.1 L (3.6-5.2) mmol/L Chloride 98 (98-107) mmol/L Carbon Dioxide 23 (22-30) mmol/L Anion Gap 14 (10-20) BUN 3 L (9-20) mg/dL Creatinine 0.5 L (0.8-1.5) MG/DL Est GFR ( Amer) > 60 Est GFR (Non-Af Amer) > 60 POC Glucose (mg/dL) 80 107 (65-110) mg/dL Random Glucose 94 (75-110) mg/dL Calcium 9.0 (8.6-10.4) mg/dl Phosphorus (2.5-4.5) mg/dL Magnesium 1.7 (1.6-2.3) mg/dL Total Bilirubin 1.0 (0.2-1.3) mg/dL AST 25 (17-59) U/L ALT 34 (21-72) U/L Alkaline Phosphatase 129 H (38-126) U/L Total Protein 7.1 (6.3-8.3) g/dL Albumin 3.1 L (3.5-5.0) g/dL Globulin 3.9 (2.2-3.9) gm/dL Albumin/Globulin Ratio 0.8 L (1.0-2.1) Amylase 403 H D (30-110) U/L Lipase 6234 H (23-300) U/L 03/08/17 03/08/17 Range/Units 06:27 06:20 WBC 6.8 (4.8-10.8) K/uL RBC 3.29 L (4.40-5.90) Mil/uL Hgb 10.6 L (12.0-18.0) g/dL Hct 31.1 L (35.0-51.0) % MCV 94.5 H (80.0-94.0) fL MCH 32.2 H (27.0-31.0) pg MCHC 34.1 (33.0-37.0) g/dL RDW 12.8 (11.5-14.5) % Plt Count 86 L D (130-400) K/uL MPV 10.0 (7.2-11.7) fL Neut % (Auto) 64.0 (50.0-75.0) % Lymph % (Auto) 13.0 L (20.0-40.0) % Dixie % (Auto) 20.2 H (0.0-10.0) % Eos % (Auto) 1.8 (0.0-4.0) % Baso % (Auto) 1.0 (0.0-2.0) % Neut # 4.4 (1.8-7.0) K/uL Lymph # 0.9 L (1.0-4.3) K/uL Dixie # 1.4 H (0.0-0.8) K/uL Eos # 0.1 (0.0-0.7) K/uL Baso # 0.1 (0.0-0.2) K/uL Neutrophils % (Manual) 66 (50-75) % Lymphocytes % (Manual) 15 L (20-40) % Reactive Lymphs % 1 H (0-0) % Monocytes % (Manual) 17 H (0-10) % Eosinophils % (Manual) 1 (0-4) % Platelet Estimate Decreased L (NORMAL) Large Platelets Present Stomatocytes Slight Sodium 130 L (132-148) mmol/L Potassium 2.6 L (3.6-5.2) mmol/L Chloride 97 L (98-107) mmol/L Carbon Dioxide 22 (22-30) mmol/L Anion Gap 14 (10-20) BUN 3 L (9-20) mg/dL Creatinine 0.5 L (0.8-1.5) MG/DL Est GFR ( Amer) > 60 Est GFR (Non-Af Amer) > 60 POC Glucose (mg/dL) (65-110) mg/dL Random Glucose 91 (75-110) mg/dL Calcium 8.7 (8.6-10.4) mg/dl Phosphorus 2.8 (2.5-4.5) mg/dL Magnesium 1.2 L (1.6-2.3) mg/dL Total Bilirubin 1.1 (0.2-1.3) mg/dL AST 32 (17-59) U/L ALT 30 (21-72) U/L Alkaline Phosphatase 117 (38-126) U/L Total Protein 6.4 (6.3-8.3) g/dL Albumin 2.9 L (3.5-5.0) g/dL Globulin 3.6 (2.2-3.9) gm/dL Albumin/Globulin Ratio 0.8 L (1.0-2.1) Amylase (30-110) U/L Lipase (23-300) U/L Laboratory Results - last 24 hr 03/08/17 03/08/17 03/08/17 06:20 06:27 08:37 WBC 6.8 RBC 3.29 L Hgb 10.6 L Hct 31.1 L MCV 94.5 H MCH 32.2 H MCHC 34.1 RDW 12.8 Plt Count 86 L D MPV 10.0 Neut % (Auto) 64.0 Lymph % (Auto) 13.0 L Dixie % (Auto) 20.2 H Eos % (Auto) 1.8 Baso % (Auto) 1.0 Neut # 4.4 Lymph # 0.9 L Dixie # 1.4 H Eos # 0.1 Baso # 0.1 Neutrophils % (Manual) 66 Lymphocytes % (Manual) 15 L Reactive Lymphs % 1 H Monocytes % (Manual) 17 H Eosinophils % (Manual) 1 Platelet Estimate Decreased L Large Platelets Present Stomatocytes Slight Sodium 130 L Potassium 2.6 L Chloride 97 L Carbon Dioxide 22 Anion Gap 14 BUN 3 L Creatinine 0.5 L Est GFR ( Amer) > 60 Est GFR (Non-Af Amer) > 60 POC Glucose (mg/dL) 107 Random Glucose 91 Calcium 8.7 Phosphorus 2.8 Magnesium 1.2 L Total Bilirubin 1.1 AST 32 ALT 30 Alkaline Phosphatase 117 Total Protein 6.4 Albumin 2.9 L Globulin 3.6 Albumin/Globulin Ratio 0.8 L Amylase Lipase 03/08/17 03/08/17 15:04 17:35 WBC RBC Hgb Hct MCV MCH MCHC RDW Plt Count MPV Neut % (Auto) Lymph % (Auto) Dixie % (Auto) Eos % (Auto) Baso % (Auto) Neut # Lymph # Dixie # Eos # Baso # Neutrophils % (Manual) Lymphocytes % (Manual) Reactive Lymphs % Monocytes % (Manual) Eosinophils % (Manual) Platelet Estimate Large Platelets Stomatocytes Sodium 132 Potassium 3.1 L Chloride 98 Carbon Dioxide 23 Anion Gap 14 BUN 3 L Creatinine 0.5 L Est GFR ( Amer) > 60 Est GFR (Non-Af Amer) > 60 POC Glucose (mg/dL) 80 Random Glucose 94 Calcium 9.0 Phosphorus Magnesium 1.7 Total Bilirubin 1.0 AST 25 ALT 34 Alkaline Phosphatase 129 H Total Protein 7.1 Albumin 3.1 L Globulin 3.9 Albumin/Globulin Ratio 0.8 L Amylase 403 H D Lipase 6234 H Critical Care Progress Note - Nutrition Nutrition: Nutrition Category Date Time Status NPO Diet [DIET] Diets 03/05/17 Breakfast Active Attending/Attestation - Attestation I have personally seen and examined this patient.: Yes I have fully participated in the care of the patient.: Yes I have reviewed all pertinent clinical information: Yes Notes (Text): 03/08/17 18:51 Today: February The Patient was seen and examined at the bedside, Medical records reviewed, and management issues were discussed and formulated. All clinical/lab/hemodynamic/radiographic data were reviewed Events reviewed Pain issues, skin care, head of the bed elevation, glycemic control were addressed. Agree with above treatment plans as transcribed in Dr. Stanford note
[2017-03-08 15:16] LABS: CHLORIDE 98 mmol/L (98-107)
[2017-03-08 15:17] LABS: POTASSIUM 3.1 mmol/L (3.6-5.2); SODIUM 132 mmol/L (132-148)
[2017-03-08 15:19] LABS: AMYLASE 403 U/L (30-110); CARBON DIOXIDE 23 mmol/L (22-30)
[2017-03-08 15:20] LABS: ALB/GLOB RATIO 0.8 (1.0-2.1); ALKALINE PHOSPHATASE 129 U/L (38-126); ALT/SGPT 34 U/L (21-72); AST/SGOT 25 U/L (17-59); BLOOD UREA NITROGEN 3 mg/dL (9-20); GFR AFRICAN-AMERICAN > 60; GLUCOSE,RANDOM 94 mg/dL (75-110); TOTAL PROTEIN 7.1 g/dL (6.3-8.3)
[2017-03-08 16:08] LABS: MAGNESIUM 1.7 mg/dL (1.6-2.3)
--- NOTE | 2017-03-08 16:39 | CP.PCM.PN ---
Subjective - Date & Time of Evaluation Date of Evaluation: 03/08/17 Time of Evaluation: 10:40 - Subjective Subjective: clinically same Objective - Vital Signs/Intake and Output Vital Signs (last 24 hours): Temp Pulse Resp BP Pulse Ox 98.0 F 88 18 147/101 H 98 03/08/17 16:00 03/08/17 16:00 03/08/17 16:00 03/08/17 15:40 03/08/17 16:00 Intake and Output: 03/08/17 03/08/17 06:59 18:59 Intake Total 1900 1450 Output Total 1670 1475 Balance 230 -25 - Medications Medications: Current Medications Chlordiazepoxide (Librium) 25 mg PO Q8 PRN PRN Reason: Agitation Last Admin: 03/06/17 16:59 Dose: 25 mg Famotidine (Pepcid) 20 mg IVP Q12 XAVI Last Admin: 03/08/17 09:37 Dose: 20 mg Piperacillin Sod/Tazobactam Sod (Zosyn 3.375 Gm Iv Premix) 3.375 gm in 50 mls @ 100 mls/hr IVPB Q6H XAVI Last Admin: 03/08/17 11:40 Dose: 100 mls/hr Potassium Chloride/Dextrose/Sod Cl (Potassium Chl 40 Meq In D5-1/2ns) 1,000 mls @ 100 mls/hr IV .Q10H XAVI Last Admin: 03/08/17 11:00 Dose: 100 mls/hr Potassium Chloride (Potassium Chloride 20 Meq/100 Ml) 20 meq in 100 mls @ 50 mls/hr IVPB Q2H XAVI Stop: 03/08/17 20:44 Lorazepam (Ativan) 2 mg IVP Q1H PRN PRN Reason: Anxiety Last Admin: 03/08/17 06:21 Dose: 2 mg Nicotine (Nicoderm Cq) 1 patch TD DAILY [facility] Last Admin: 03/08/17 09:38 Dose: 1 patch Nystatin (Mycostatin Cream) 1 ea TOP TID XAVI Last Admin: 03/08/17 14:47 Dose: 1 ea - Labs Labs: 03/08/17 06:27 03/08/17 15:04 - Constitutional Appears: Well - Head Exam Head Exam: ATRAUMATIC, NORMAL INSPECTION, NORMOCEPHALIC - Eye Exam Eye Exam: EOMI, Normal appearance, PERRL Pupil Exam: NORMAL ACCOMODATION, PERRL - ENT Exam ENT Exam: Mucous Membranes Moist, Normal Exam - Neck Exam Neck Exam: Full ROM, Normal Inspection. absent: Lymphadenopathy - Respiratory Exam Respiratory Exam: Decreased Breath Sounds - Cardiovascular Exam Cardiovascular Exam: REGULAR RHYTHM, +S1, +S2 - GI/Abdominal Exam GI & Abdominal Exam: Soft, Diminished Bowel Sounds - Rectal Exam Rectal Exam: Deferred Assessment and Plan - Assessment and Plan (Free Text) Plan: Still confusedNo distress Patient has a lost her short-term memory Continue Librium continue her lorazepam needed IV fluid Neurology consult Continue as ordered [id number]
[2017-03-08] MEDS: DEXTROSE IV SCH (21:56)
[2017-03-08] MEDS: MULTIVITAMIN IV SCH (21:56)
[2017-03-08] MEDS: [UNRECOGNIZED DRUG - OTHER] IV SCH (21:56)
[2017-03-08] MEDS: THIAMINE IV SCH (21:56)
[2017-03-08] MEDS: FOLIC ACID IV SCH (21:56)
[2017-03-09] MEDS: Piperacill/Tazo 3.375gm in Dex 3.375 GM/50 ML BAG IVPB SCH ×4 (05:35→23:01)
[2017-03-09 06:26] LABS: BASO # 0.1 K/uL (0.0-0.2); BASO % 1.3 % (0.0-2.0); EOS # 0.2 K/uL (0.0-0.7); EOS % 3.7 % (0.0-4.0); HEMATOCRIT 35.3 % (35.0-51.0); MEAN CELL VOLUME 97.3 fL (80.0-94.0); MEAN CORPUSCULAR HEMOGLOBIN 33.2 pg (27.0-31.0); MEAN CORPUSCULAR HGB CONC 34.1 g/dL (33.0-37.0); MEAN PLATELET VOLUME 10.2 fL (7.2-11.7); MONO # 1.7 K/uL (0.0-0.8); MONO % 32.1 % (0.0-10.0); PLATELET COUNT 137 K/uL (130-400); RED CELL DISTRIBUTION WIDTH 13.6 % (11.5-14.5); WHITE BLOOD COUNT 5.2 K/uL (4.8-10.8)
[2017-03-09 06:32] LABS: CHLORIDE 97 mmol/L (98-107)
[2017-03-09 06:33] LABS: POTASSIUM 3.6 mmol/L (3.6-5.2); SODIUM 133 mmol/L (132-148)
[2017-03-09 06:35] LABS: BILIRUBIN,TOTAL 0.9 mg/dL (0.2-1.3); CARBON DIOXIDE 24 mmol/L (22-30); GFR AFRICAN-AMERICAN > 60
[2017-03-09 06:36] LABS: ALB/GLOB RATIO 0.7 (1.0-2.1); ALKALINE PHOSPHATASE 127 U/L (38-126); ALT/SGPT 24 U/L (21-72); AST/SGOT 24 U/L (17-59); BLOOD UREA NITROGEN 3 mg/dL (9-20); CALCIUM 9.2 mg/dl (8.6-10.4); GLUCOSE,RANDOM 87 mg/dL (75-110); MAGNESIUM 1.5 mg/dL (1.6-2.3); PHOSPHOROUS 3.6 mg/dL (2.5-4.5); TOTAL PROTEIN 7.3 g/dL (6.3-8.3)
[2017-03-09] MEDS: Magnesium Sulfate 1 gm in D5W 1 GM/100 ML BAG IVPB SCH ×2 (08:22→08:27)
[2017-03-09 08:36] LABS: BASOPHIL 1 % (0-2); EOSINOPHIL 4 % (0-4); MYELOCYTE 1 % (0-0); NEUTROPHIL 44 % (50-75); TOTAL CELLS COUNTED 100
[2017-03-09] MEDS: Nystatin 100,000 Units/gm Cream(15 gm) TOP SCH ×3 (10:04→18:27)
--- NOTE | 2017-03-09 15:01 | CP.CCUPN ---
<Venice Stanford - Last Filed: 03/09/17 16:20> CCU Subjective - Physician Review Subjective (Free Text): Patient was seen and examined at bedside in the morning. Patient was in no acute distress. Patient was more alert and oriented today. Patient denies having chest pain, abdominal pain, fevers, shortness of breath, tremors, hallucinations, nausea, vomiting and diarrhea. 03/09/17 14:56 CCU Objective - Vital Signs / Intake & Output Intake and Output (Last 8hrs): Intake & Output 03/08/17 03/09/17 03/09/17 22:59 06:59 14:59 Intake Total 1000 1225 1025 Output Total 1310 1370 600 Balance -310 -145 425 Intake: Intake, IV Amount 1000 1225 925 Left Forearm 150 Left Forearm Y-site 500 R forearm 100 800 375 Right Hand 200 right forearm 250 425 350 Oral 0 0 100 Output: Urine 1310 1370 600 Condom 1310 1370 600 Other: # Voids Condom 0 # Bowel Movements 0 0 0 - Physical Exam Head: Positive for: Atraumatic, Normocephalic Extroacular Muscles: Positive for: EOMI Mouth: Positive for: Moist Mucous Membranes Respiratory/Chest: Positive for: Decreased Breath Sounds, Rales, Rhonchi. Negative for: Clear to Auscultation Cardiovascular: Positive for: Normal S1, S2, Tachycardic. Negative for: Murmurs Abdomen: Negative for: Tenderness, Distention, Normal Bowel Sounds (decreased) Upper Extremity: Positive for: Normal Inspection. Negative for: Edema Lower Extremity: Positive for: Normal Inspection, NORMAL PULSES. Negative for: Edema Skin: Positive for: Warm, Dry, Normal Color Psychiatric: Positive for: Alert. Negative for: Oriented x 3, Normal Concentration - Medications Active Medications: Active Medications Generic Name Dose Route Start Last Admin Trade Name Freq PRN Reason Stop Dose Admin Chlordiazepoxide 25 mg 03/06/17 09:23 03/06/17 16:59 Librium PO 25 mg Q8 PRN Administration Agitation Famotidine 20 mg 03/05/17 10:00 03/09/17 10:03 Pepcid IVP 20 mg Q12 [facility] Administration Piperacillin Sod/Tazobactam Sod 3.375 gm in 50 mls @ 100 mls/hr 03/05/17 11: 00 03/09/17 10:03 Zosyn 3.375 Gm Iv Premix IVPB 100 mls/hr Q6H [facility] Administration Thiamine HCl 100 mg/ 1,011.2 mls @ 100 mls/hr 03/08/17 21:00 03/08/17 21:56 Multivitamins/Vitamin C 10 ml/ IV 100 mls/hr Folic Acid 1 mg/ Dextrose/ Q24H [facility] Administration Sodium Chloride Potassium Chloride/Dextrose/Sod Cl 1,000 mls @ 50 mls/hr 03/08/17 22:13 03/08 22:19 Potassium Chl 40 Meq In D5-1/2ns IV 50 mls/hr .Q20H [facility] Administration Lorazepam 2 mg 03/08/17 01:47 03/09/17 12:27 Ativan IVP 2 mg Q1H PRN Administration Anxiety Nicotine 1 patch 03/07/17 17:00 03/09/17 10:03 Nicoderm Cq TD 1 patch DAILY [facility] Administration Nystatin 1 ea 03/06/17 10:00 03/09/17 10:04 Mycostatin Cream TOP 1 ea TID [facility]I Administration - Patient Studies Lab Studies: Lab Studies 03/09/17 03/09/17 03/09/17 Range/Units 06:16 06:16 05:33 WBC 5.2 (4.8-10.8) K/uL RBC 3.63 L (4.40-5.90) Mil/uL Hgb 12.0 (12.0-18.0) g/dL Hct 35.3 (35.0-51.0) % MCV 97.3 H D (80.0-94.0) fL MCH 33.2 H (27.0-31.0) pg MCHC 34.1 (33.0-37.0) g/dL RDW 13.6 (11.5-14.5) % Plt Count 137 (130-400) K/uL MPV 10.2 (7.2-11.7) fL Neut % (Auto) 42.9 L (50.0-75.0) % Lymph % (Auto) 20.0 (20.0-40.0) % Sebastian % (Auto) 32.1 H (0.0-10.0) % Eos % (Auto) 3.7 (0.0-4.0) % Baso % (Auto) 1.3 (0.0-2.0) % Neut # 2.2 (1.8-7.0) K/uL Lymph # 1.0 (1.0-4.3) K/uL Sebastian # 1.7 H (0.0-0.8) K/uL Eos # 0.2 (0.0-0.7) K/uL Baso # 0.1 (0.0-0.2) K/uL Neutrophils % (Manual) 44 L (50-75) % Lymphocytes % (Manual) 19 L (20-40) % Monocytes % (Manual) 31 H (0-10) % Eosinophils % (Manual) 4 (0-4) % Basophils % (Manual) 1 (0-2) % Myelocytes % 1 H (0-0) % Platelet Estimate Normal (NORMAL) RBC Morphology Normal Sodium 133 (132-148) mmol/L Potassium 3.6 (3.6-5.2) mmol/L Chloride 97 L (98-107) mmol/L Carbon Dioxide 24 (22-30) mmol/L Anion Gap 16 (10-20) BUN 3 L (9-20) mg/dL Creatinine 0.4 L (0.8-1.5) MG/DL Est GFR ( Amer) > 60 Est GFR (Non-Af Amer) > 60 POC Glucose (mg/dL) 92 (65-110) mg/dL Random Glucose 87 (75-110) mg/dL Calcium 9.2 (8.6-10.4) mg/dl Phosphorus 3.6 (2.5-4.5) mg/dL Magnesium 1.5 L (1.6-2.3) mg/dL Total Bilirubin 0.9 (0.2-1.3) mg/dL AST 24 (17-59) U/L ALT 24 (21-72) U/L Alkaline Phosphatase 127 H (38-126) U/L Total Protein 7.3 (6.3-8.3) g/dL Albumin 3.1 L (3.5-5.0) g/dL Globulin 4.2 H (2.2-3.9) gm/dL Albumin/Globulin Ratio 0.7 L (1.0-2.1) Amylase (30-110) U/L Lipase (23-300) U/L 03/08/17 03/08/17 Range/Units 17:35 15:04 WBC (4.8-10.8) K/uL RBC (4.40-5.90) Mil/uL Hgb (12.0-18.0) g/dL Hct (35.0-51.0) % MCV (80.0-94.0) fL MCH (27.0-31.0) pg MCHC (33.0-37.0) g/dL RDW (11.5-14.5) % Plt Count (130-400) K/uL MPV (7.2-11.7) fL Neut % (Auto) (50.0-75.0) % Lymph % (Auto) (20.0-40.0) % Sebastian % (Auto) (0.0-10.0) % Eos % (Auto) (0.0-4.0) % Baso % (Auto) (0.0-2.0) % Neut # (1.8-7.0) K/uL Lymph # (1.0-4.3) K/uL Sebastian # (0.0-0.8) K/uL Eos # (0.0-0.7) K/uL Baso # (0.0-0.2) K/uL Neutrophils % (Manual) (50-75) % Lymphocytes % (Manual) (20-40) % Monocytes % (Manual) (0-10) % Eosinophils % (Manual) (0-4) % Basophils % (Manual) (0-2) % Myelocytes % (0-0) % Platelet Estimate (NORMAL) RBC Morphology Sodium 132 (132-148) mmol/L Potassium 3.1 L (3.6-5.2) mmol/L Chloride 98 (98-107) mmol/L Carbon Dioxide 23 (22-30) mmol/L Anion Gap 14 (10-20) BUN 3 L (9-20) mg/dL Creatinine 0.5 L (0.8-1.5) MG/DL Est GFR ( Amer) > 60 Est GFR (Non-Af Amer) > 60 POC Glucose (mg/dL) 80 (65-110) mg/dL Random Glucose 94 (75-110) mg/dL Calcium 9.0 (8.6-10.4) mg/dl Phosphorus (2.5-4.5) mg/dL Magnesium 1.7 (1.6-2.3) mg/dL Total Bilirubin 1.0 (0.2-1.3) mg/dL AST 25 (17-59) U/L ALT 34 (21-72) U/L Alkaline Phosphatase 129 H (38-126) U/L Total Protein 7.1 (6.3-8.3) g/dL Albumin 3.1 L (3.5-5.0) g/dL Globulin 3.9 (2.2-3.9) gm/dL Albumin/Globulin Ratio 0.8 L (1.0-2.1) Amylase 403 H D (30-110) U/L Lipase 6234 H (23-300) U/L Laboratory Results - last 24 hr 03/08/17 03/08/17 03/09/17 15:04 17:35 05:33 WBC RBC Hgb Hct MCV MCH MCHC RDW Plt Count MPV Neut % (Auto) Lymph % (Auto) Sebastian % (Auto) Eos % (Auto) Baso % (Auto) Neut # Lymph # Sebastian # Eos # Baso # Neutrophils % (Manual) Lymphocytes % (Manual) Monocytes % (Manual) Eosinophils % (Manual) Basophils % (Manual) Myelocytes % Platelet Estimate RBC Morphology Sodium 132 Potassium 3.1 L Chloride 98 Carbon Dioxide 23 Anion Gap 14 BUN 3 L Creatinine 0.5 L Est GFR ( Amer) > 60 Est GFR (Non-Af Amer) > 60 POC Glucose (mg/dL) 80 92 Random Glucose 94 Calcium 9.0 Phosphorus Magnesium 1.7 Total Bilirubin 1.0 AST 25 ALT 34 Alkaline Phosphatase 129 H Total Protein 7.1 Albumin 3.1 L Globulin 3.9 Albumin/Globulin Ratio 0.8 L Amylase 403 H D Lipase 6234 H 03/09/17 03/09/17 06:16 06:16 WBC 5.2 RBC 3.63 L Hgb 12.0 Hct 35.3 MCV 97.3 H D MCH 33.2 H MCHC 34.1 RDW 13.6 Plt Count 137 MPV 10.2 Neut % (Auto) 42.9 L Lymph % (Auto) 20.0 Sebastian % (Auto) 32.1 H Eos % (Auto) 3.7 Baso % (Auto) 1.3 Neut # 2.2 Lymph # 1.0 Sebastian # 1.7 H Eos # 0.2 Baso # 0.1 Neutrophils % (Manual) 44 L Lymphocytes % (Manual) 19 L Monocytes % (Manual) 31 H Eosinophils % (Manual) 4 Basophils % (Manual) 1 Myelocytes % 1 H Platelet Estimate Normal RBC Morphology Normal Sodium 133 Potassium 3.6 Chloride 97 L Carbon Dioxide 24 Anion Gap 16 BUN 3 L Creatinine 0.4 L Est GFR ( Amer) > 60 Est GFR (Non-Af Amer) > 60 POC Glucose (mg/dL) Random Glucose 87 Calcium 9.2 Phosphorus 3.6 Magnesium 1.5 L Total Bilirubin 0.9 AST 24 ALT 24 Alkaline Phosphatase 127 H Total Protein 7.3 Albumin 3.1 L Globulin 4.2 H Albumin/Globulin Ratio 0.7 L Amylase Lipase Fingerstick Blood Sugar Results: 92 Review of Systems - Constitutional Constitutional: absent: Fever - Cardiovascular Cardiovascular: absent: Chest Pain, Dyspnea - Respiratory Respiratory: absent: Cough, Dyspnea - Gastrointestinal Gastrointestinal: absent: Abdominal Pain, Constipation, Diarrhea, Nausea, Vomiting - Neurological Neurological: absent: Dizziness, Headaches Critical Care Progress Note - Nutrition Nutrition: Nutrition Category Date Time Status Consistent Carbohydrate [DIET] Diets 03/09/17 Breakfast Active Assessment/Plan (1) Sepsis Assessment and plan: 41 year old male with past medical history of alcoholism, seizures secondary to alcohol withdrawal, pneumonia, and electrolyte imbalance, presented to the ED with tremors, DTs, and was admitted as Code Sepsis. Patient's last drink was the morning before going to ED. Neuro: lethargic, oriented to person and time, but not place Pulm: Sepsis, likely secondary to pneumonia - CXR: patchy infiltrate in right mid to lower lung field. possible small right effusion; suspect minor left basilar atelectasis, possible developing left lower lobe infiltrate CV: - Monitor vitals - ECHO: EF of 50-60%, trace to mild tricuspid regurg - IV Fluids + K+ 40mEq Endo: no acute issues - Monitor blood glucose GI: - Resolved- As per nurse, Diarrhea: C.Diff negative - Pepcid - Swallow eval: passed--> advanced diet to bite size/nectar thick - Amylase: 403 - Lipase: 6234 - Abdominal CT w/o constrat: r/o pancreatitis; f/u Heme: Thrombocytopenia - Platelet count improving- 137 - Monitor H/H/platelets Renal: - Monitor renal function - Hypokalemia: improved - Hypomagnesemia: Mg sulfate 1 gm given ID: CODE Sepsis likely secondary to pneumonia - Leukocytosis improving - Bandemia: 27--> improving, 9 - Continue Zosyn, (discontinued Vanco) - Blood cx: negative for 4days Psych: Alcohol withdrawal/ DTs - Alcohol: 175 at admission - Ativan - Librium started today - Monitor - Psychiatry consulted: Dr. Skinner, help appreciated Skin: - Scrotal rash--> apply Nystatin TID Prophylaxis: - DVT: SCDs; C/I due to thrombocytopenia - GI: pepcid Current Visit: Yes Status: Acute <OctavioJose Manuel - Last Filed: 03/10/17 22:30> CCU Objective - Vital Signs / Intake & Output Intake and Output (Last 8hrs): Intake & Output 03/10/17 03/10/17 03/10/17 06:59 14:59 22:59 Intake Total 1200 1500 Output Total 400 1000 Balance 800 500 Weight 154 lb Intake: Intake, IV Amount 1200 1200 R forearm 800 500 right forearm 400 700 Oral 300 Output: Urine 400 1000 Condom 400 1000 Other: # Voids Condom 0 # Bowel Movements 1 1 - Medications Active Medications: Active Medications Generic Name Dose Route Start Last Admin Trade Name Freq PRN Reason Stop Dose Admin Chlordiazepoxide 25 mg 03/06/17 09:23 03/10/17 11:18 Librium PO 25 mg Q8 PRN Administration Agitation Famotidine 20 mg 03/05/17 10:00 03/10/17 22:00 Pepcid IVP 20 mg Q12 [facility] Administration Piperacillin Sod/Tazobactam Sod 3.375 gm in 50 mls @ 100 mls/hr 03/05/17 11: 00 03/10/17 22:01 Zosyn 3.375 Gm Iv Premix IVPB 100 mls/hr Q6H [facility] Administration Thiamine HCl 100 mg/ 1,011.2 mls @ 100 mls/hr 03/08/17 21:00 03/10/17 21:59 Multivitamins/Vitamin C 10 ml/ IV 100 mls/hr Folic Acid 1 mg/ Dextrose/ Q24H [facility] Administration Sodium Chloride Potassium Chloride/Dextrose/Sod Cl 1,000 mls @ 50 mls/hr 03/08/17 22:13 03/10 13:51 Potassium Chl 40 Meq In D5-1/2ns IV Not Given .Q20H [facility] Lorazepam 2 mg 03/08/17 01:47 03/09/17 12:27 Ativan IVP 2 mg Q1H PRN Administration Anxiety Nicotine 1 patch 03/07/17 17:00 03/10/17 11:18 Nicoderm Cq TD 1 patch DAILY [facility] Administration Nystatin 1 ea 03/06/17 10:00 03/10/17 17:58 Mycostatin Cream TOP 1 ea TID [facility] Administration Potassium Chloride 40 meq 03/10/17 10:30 03/10/17 11:18 K-Dur 20 Meq Er Tab PO 40 meq DAILY [facility] Administration - Patient Studies Lab Studies: Lab Studies 03/10/17 03/10/17 03/10/17 Range/Units 21:42 16:37 06:47 WBC (4.8-10.8) K/uL RBC (4.40-5.90) Mil/uL Hgb (12.0-18.0) g/dL Hct (35.0-51.0) % MCV (80.0-94.0) fL MCH (27.0-31.0) pg MCHC (33.0-37.0) g/dL RDW (11.5-14.5) % Plt Count (130-400) K/uL MPV (7.2-11.7) fL Neut % (Auto) (50.0-75.0) % Lymph % (Auto) (20.0-40.0) % Sebastian % (Auto) (0.0-10.0) % Eos % (Auto) (0.0-4.0) % Baso % (Auto) (0.0-2.0) % Neut # (1.8-7.0) K/uL Lymph # (1.0-4.3) K/uL Sebastian # (0.0-0.8) K/uL Eos # (0.0-0.7) K/uL Baso # (0.0-0.2) K/uL Neutrophils % (Manual) (50-75) % Lymphocytes % (Manual) (20-40) % Monocytes % (Manual) (0-10) % Eosinophils % (Manual) (0-4) % Platelet Estimate (NORMAL) RBC Morphology Hypochromasia (manual) Anisocytosis (manual) Macrocytosis (manual) Sodium 131 L (132-148) mmol/L Potassium 3.4 L (3.6-5.2) mmol/L Chloride 99 (98-107) mmol/L Carbon Dioxide 23 (22-30) mmol/L Anion Gap 12 (10-20) BUN 4 L (9-20) mg/dL Creatinine 0.5 L (0.8-1.5) MG/DL Est GFR ( Amer) > 60 Est GFR (Non-Af Amer) > 60 POC Glucose (mg/dL) 85 107 (65-110) mg/dL Random Glucose 70 L (75-110) mg/dL Calcium 9.1 (8.6-10.4) mg/dl Phosphorus 3.6 (2.5-4.5) mg/dL Magnesium 1.5 L (1.6-2.3) mg/dL Total Bilirubin 0.5 (0.2-1.3) mg/dL AST 22 (17-59) U/L ALT 25 (21-72) U/L Alkaline Phosphatase 96 (38-126) U/L Total Protein 6.4 (6.3-8.3) g/dL Albumin 3.0 L (3.5-5.0) g/dL Globulin 3.5 (2.2-3.9) gm/dL Albumin/Globulin Ratio 0.9 L (1.0-2.1) 03/10/17 03/10/17 Range/Units 06:47 06:18 WBC 5.1 (4.8-10.8) K/uL RBC 3.32 L (4.40-5.90) Mil/uL Hgb 10.7 L (12.0-18.0) g/dL Hct 32.7 L (35.0-51.0) % MCV 98.4 H (80.0-94.0) fL MCH 32.2 H (27.0-31.0) pg MCHC 32.8 L (33.0-37.0) g/dL RDW 12.9 (11.5-14.5) % Plt Count 196 (130-400) K/uL MPV 9.5 (7.2-11.7) fL Neut % (Auto) 40.3 L (50.0-75.0) % Lymph % (Auto) 20.9 (20.0-40.0) % Sebastian % (Auto) 32.9 H (0.0-10.0) % Eos % (Auto) 4.7 H (0.0-4.0) % Baso % (Auto) 1.2 (0.0-2.0) % Neut # 2.1 (1.8-7.0) K/uL Lymph # 1.1 (1.0-4.3) K/uL Sebastian # 1.7 H (0.0-0.8) K/uL Eos # 0.2 (0.0-0.7) K/uL Baso # 0.1 (0.0-0.2) K/uL Neutrophils % (Manual) 44 L (50-75) % Lymphocytes % (Manual) 23 (20-40) % Monocytes % (Manual) 30 H (0-10) % Eosinophils % (Manual) 3 (0-4) % Platelet Estimate Normal (NORMAL) RBC Morphology TEST NOT PERFORMED Hypochromasia (manual) Slight Anisocytosis (manual) Slight Macrocytosis (manual) Slight Sodium (132-148) mmol/L Potassium (3.6-5.2) mmol/L Chloride (98-107) mmol/L Carbon Dioxide (22-30) mmol/L Anion Gap (10-20) BUN (9-20) mg/dL Creatinine (0.8-1.5) MG/DL Est GFR ( Amer) Est GFR (Non-Af Amer) POC Glucose (mg/dL) 101 (65-110) mg/dL Random Glucose (75-110) mg/dL Calcium (8.6-10.4) mg/dl Phosphorus (2.5-4.5) mg/dL Magnesium (1.6-2.3) mg/dL Total Bilirubin (0.2-1.3) mg/dL AST (17-59) U/L ALT (21-72) U/L Alkaline Phosphatase (38-126) U/L Total Protein (6.3-8.3) g/dL Albumin (3.5-5.0) g/dL Globulin (2.2-3.9) gm/dL Albumin/Globulin Ratio (1.0-2.1) Laboratory Results - last 24 hr 03/10/17 03/10/17 03/10/17 06:18 06:47 06:47 WBC 5.1 RBC 3.32 L Hgb 10.7 L Hct 32.7 L MCV 98.4 H MCH 32.2 H MCHC 32.8 L RDW 12.9 Plt Count 196 MPV 9.5 Neut % (Auto) 40.3 L Lymph % (Auto) 20.9 Sebastian % (Auto) 32.9 H Eos % (Auto) 4.7 H Baso % (Auto) 1.2 Neut # 2.1 Lymph # 1.1 Sebastian # 1.7 H Eos # 0.2 Baso # 0.1 Neutrophils % (Manual) 44 L Lymphocytes % (Manual) 23 Monocytes % (Manual) 30 H Eosinophils % (Manual) 3 Platelet Estimate Normal RBC Morphology TEST NOT PERFORMED Hypochromasia (manual) Slight Anisocytosis (manual) Slight Macrocytosis (manual) Slight Sodium 131 L Potassium 3.4 L Chloride 99 Carbon Dioxide 23 Anion Gap 12 BUN 4 L Creatinine 0.5 L Est GFR ( Amer) > 60 Est GFR (Non-Af Amer) > 60 POC Glucose (mg/dL) 101 Random Glucose 70 L Calcium 9.1 Phosphorus 3.6 Magnesium 1.5 L Total Bilirubin 0.5 AST 22 ALT 25 Alkaline Phosphatase 96 Total Protein 6.4 Albumin 3.0 L Globulin 3.5 Albumin/Globulin Ratio 0.9 L 03/10/17 03/10/17 16:37 21:42 WBC RBC Hgb Hct MCV MCH MCHC RDW Plt Count MPV Neut % (Auto) Lymph % (Auto) Sebastian % (Auto) Eos % (Auto) Baso % (Auto) Neut # Lymph # Sebastian # Eos # Baso # Neutrophils % (Manual) Lymphocytes % (Manual) Monocytes % (Manual) Eosinophils % (Manual) Platelet Estimate RBC Morphology Hypochromasia (manual) Anisocytosis (manual) Macrocytosis (manual) Sodium Potassium Chloride Carbon Dioxide Anion Gap BUN Creatinine Est GFR ( Amer) Est GFR (Non-Af Amer) POC Glucose (mg/dL) 107 85 Random Glucose Calcium Phosphorus Magnesium Total Bilirubin AST ALT Alkaline Phosphatase Total Protein Albumin Globulin Albumin/Globulin Ratio Critical Care Progress Note - Nutrition Nutrition: Nutrition Category Date Time Status Consistent Carbohydrate [DIET] Diets 03/09/17 Breakfast Active Attending/Attestation - Attestation I have personally seen and examined this patient.: Yes I have fully participated in the care of the patient.: Yes I have reviewed all pertinent clinical information: Yes Notes (Text): Today: Sunday, March 09, 2017 The Patient was seen and examined at the bedside, Medical records reviewed, and management issues were discussed and formulated. All clinical/lab/hemodynamic/radiographic data were reviewed Events reviewed Pain issues, skin care, head of the bed elevation, glycemic control were addressed. Agree with above treatment plans as transcribed in Dr. Stanford note
[2017-03-09] MEDS: Potassium Chl 40 mEq in D5-1/2 1,000 ML IV SCH (18:26)
--- NOTE | 2017-03-09 19:08 | CP.PCM.PN ---
Subjective - Date & Time of Evaluation Date of Evaluation: 03/09/17 Time of Evaluation: 13:00 - Subjective Subjective: clinically same Objective - Vital Signs/Intake and Output Vital Signs (last 24 hours): Temp Pulse Resp BP Pulse Ox 97.9 F 112 H 18 139/93 H 95 03/09/17 16:00 03/09/17 18:00 03/09/17 18:00 03/09/17 17:52 03/09/17 18:00 Intake and Output: 03/09/17 03/10/17 18:59 06:59 Intake Total 2300 Output Total 1300 Balance 1000 - Medications Medications: Current Medications Chlordiazepoxide (Librium) 25 mg PO Q8 PRN PRN Reason: Agitation Last Admin: 03/09/17 18:26 Dose: 25 mg Famotidine (Pepcid) 20 mg IVP Q12 [facility] Last Admin: 03/09/17 10:03 Dose: 20 mg Piperacillin Sod/Tazobactam Sod (Zosyn 3.375 Gm Iv Premix) 3.375 gm in 50 mls @ 100 mls/hr IVPB Q6H [facility] Last Admin: 03/09/17 18:26 Dose: 100 mls/hr Thiamine HCl 100 mg/Multivitamins/Vitamin C 10 ml/Folic Acid 1 mg/ Dextrose/ Sodium Chloride 1,011.2 mls @ 100 mls/hr IV Q24H [facility] Last Admin: 03/08/17 21:56 Dose: 100 mls/hr Potassium Chloride/Dextrose/Sod Cl (Potassium Chl 40 Meq In D5-1/2ns) 1,000 mls @ 50 mls/hr IV .Q20H [facility] Last Admin: 03/09/17 18:26 Dose: 50 mls/hr Lorazepam (Ativan) 2 mg IVP Q1H PRN PRN Reason: Anxiety Last Admin: 03/09/17 12:27 Dose: 2 mg Nicotine (Nicoderm Cq) 1 patch TD DAILY [facility] Last Admin: 03/09/17 10:03 Dose: 1 patch Nystatin (Mycostatin Cream) 1 ea TOP TID [facility] Last Admin: 03/09/17 18:27 Dose: 1 ea - Labs Labs: 03/09/17 06:16 03/09/17 06:16 - Constitutional Appears: Well - Head Exam Head Exam: ATRAUMATIC, NORMAL INSPECTION, NORMOCEPHALIC - Eye Exam Eye Exam: EOMI, Normal appearance, PERRL Pupil Exam: NORMAL ACCOMODATION, PERRL - ENT Exam ENT Exam: Mucous Membranes Moist, Normal Exam - Neck Exam Neck Exam: Full ROM, Normal Inspection. absent: Lymphadenopathy - Respiratory Exam Respiratory Exam: Decreased Breath Sounds - Cardiovascular Exam Cardiovascular Exam: REGULAR RHYTHM, +S1, +S2 - GI/Abdominal Exam GI & Abdominal Exam: Soft, Diminished Bowel Sounds - Rectal Exam Rectal Exam: Deferred
[2017-03-09] MEDS: FOLIC ACID IV SCH (21:00)
[2017-03-09] MEDS: DEXTROSE IV SCH (21:00)
[2017-03-09] MEDS: THIAMINE IV SCH (21:00)
[2017-03-09] MEDS: MULTIVITAMIN IV SCH (21:00)
[2017-03-09] MEDS: [UNRECOGNIZED DRUG - OTHER] IV SCH (21:00)
[2017-03-10] MEDS: Piperacill/Tazo 3.375gm in Dex 3.375 GM/50 ML BAG IVPB SCH ×4 (04:55→22:01)
[2017-03-10] MEDS: Potassium Chl 40 mEq in D5-1/2 1,000 ML IV SCH ×2 (04:57→13:51)
[2017-03-10 06:56] LABS: BASO # 0.1 K/uL (0.0-0.2); BASO % 1.2 % (0.0-2.0); EOS # 0.2 K/uL (0.0-0.7); EOS % 4.7 % (0.0-4.0); HEMATOCRIT 32.7 % (35.0-51.0); LYMPH # 1.1 K/uL (1.0-4.3); LYMPH % 20.9 % (20.0-40.0); MEAN CELL VOLUME 98.4 fL (80.0-94.0); MEAN CORPUSCULAR HEMOGLOBIN 32.2 pg (27.0-31.0); MEAN CORPUSCULAR HGB CONC 32.8 g/dL (33.0-37.0); MEAN PLATELET VOLUME 9.5 fL (7.2-11.7); MONO # 1.7 K/uL (0.0-0.8); MONO % 32.9 % (0.0-10.0); NRBC % 0.2 % (0.0-2.0); PLATELET COUNT 196 K/uL (130-400); RED CELL DISTRIBUTION WIDTH 12.9 % (11.5-14.5); WHITE BLOOD COUNT 5.1 K/uL (4.8-10.8)
[2017-03-10 07:16] LABS: ALB/GLOB RATIO 0.9 (1.0-2.1); ALKALINE PHOSPHATASE 96 U/L (38-126); ALT/SGPT 25 U/L (21-72); AST/SGOT 22 U/L (17-59); BILIRUBIN,TOTAL 0.5 mg/dL (0.2-1.3); BLOOD UREA NITROGEN 4 mg/dL (9-20); CALCIUM 9.1 mg/dl (8.6-10.4); CARBON DIOXIDE 23 mmol/L (22-30); CHLORIDE 99 mmol/L (98-107); GFR AFRICAN-AMERICAN > 60; GLUCOSE,RANDOM 70 mg/dL (75-110); MAGNESIUM 1.5 mg/dL (1.6-2.3); PHOSPHOROUS 3.6 mg/dL (2.5-4.5); POTASSIUM 3.4 mmol/L (3.6-5.2); SODIUM 131 mmol/L (132-148); TOTAL PROTEIN 6.4 g/dL (6.3-8.3)
[2017-03-10 09:04] LABS: EOSINOPHIL 3 % (0-4); TOTAL CELLS COUNTED 100
[2017-03-10 09:05] LABS: NEUTROPHIL 44 % (50-75)
[2017-03-10] MEDS: Magnesium Sulfate 1 gm in D5W 1 GM/100 ML BAG IVPB SCH ×2 (11:15→11:18)
[2017-03-10] MEDS: Potassium Chloride 20 mEq ER Tab PO SCH (11:18)
[2017-03-10] MEDS: Nystatin 100,000 Units/gm Cream(15 gm) TOP SCH ×3 (11:19→17:58)
--- NOTE | 2017-03-10 12:08 | CT ---
PROCEDURE: CT Abdomen and Pelvis without Oral or IV contrast. HISTORY: r/o pancreatitis COMPARISON: None available. TECHNIQUE: Contiguous axial images of the abdomen and pelvis. No oral or IV contrast administered. Coronal and Sagittal reformats generated and reviewed. Radiation dose: Total exam DLP = 655.07 mGy-cm. This CT exam was performed using one or more of the following dose reduction techniques: Automated exposure control, adjustment of the mA and/or kV according to patient size, and/or use of iterative reconstruction technique. FINDINGS: There is limited evaluation of the solid organs without the administration of IV contrast. LOWER THORAX: Small right pleural effusion. Right middle lobe consolidation. LIVER: Hypoattenuation of the liver compatible with hepatic steatosis. GALLBLADDER AND BILE DUCTS: Contracted gallbladder limits evaluation. PANCREAS: Unremarkable unenhanced appearance. SPLEEN: Unremarkable unenhanced appearance. ADRENALS: Unremarkable unenhanced appearance. KIDNEYS AND URETERS: No hydronephrosis or obstructing renal calculus. Minimal perinephric stranding bilaterally, nonspecific. BLADDER: The urinary bladder appears unremarkable. REPRODUCTIVE: Unremarkable. APPENDIX: The appendix appears within normal limits of caliber. No secondary signs of acute appendicitis. BOWEL: The stomach is nondistended. Lack of oral contrast limits evaluation for bowel pathology. The bowel loops appear within normal limits of caliber without evidence of intestinal obstruction. PERITONEUM: No significant free fluid. No definite free air. LYMPH NODES: No bulky lymphadenopathy identified. VASCULATURE: No aortic aneurysm. BONES: Deformity of the right hip. Adjacent muscular atrophy. 6 mm anterolisthesis of L5 on S1. OTHER FINDINGS: None. IMPRESSION: Small right pleural effusion. Right middle lobe consolidation. Hepatic steatosis. Additional findings as above.
--- NOTE | 2017-03-10 15:47 | CP.PCM.PN ---
Subjective - Date & Time of Evaluation Date of Evaluation: 03/10/17 Time of Evaluation: 10:00 Objective - Vital Signs/Intake and Output Vital Signs (last 24 hours): Temp Pulse Resp BP Pulse Ox 98.1 F 81 12 124/78 98 03/10/17 12:00 03/10/17 14:00 03/10/17 14:00 03/10/17 13:58 03/10/17 14:00 Intake and Output: 03/10/17 03/10/17 06:59 18:59 Intake Total 1650 1500 Output Total 550 1000 Balance 1100 500 - Medications Medications: Current Medications Chlordiazepoxide (Librium) 25 mg PO Q8 PRN PRN Reason: Agitation Last Admin: 03/10/17 11:18 Dose: 25 mg Famotidine (Pepcid) 20 mg IVP Q12 [facility] Last Admin: 03/10/17 11:18 Dose: 20 mg Piperacillin Sod/Tazobactam Sod (Zosyn 3.375 Gm Iv Premix) 3.375 gm in 50 mls @ 100 mls/hr IVPB Q6H [facility] Last Admin: 03/10/17 11:19 Dose: 100 mls/hr Thiamine HCl 100 mg/Multivitamins/Vitamin C 10 ml/Folic Acid 1 mg/ Dextrose/ Sodium Chloride 1,011.2 mls @ 100 mls/hr IV Q24H [facility] Last Admin: 03/09/17 21:00 Dose: 100 mls/hr Potassium Chloride/Dextrose/Sod Cl (Potassium Chl 40 Meq In D5-1/2ns) 1,000 mls @ 50 mls/hr IV .Q20H [facility] Last Admin: 03/10/17 13:51 Dose: Not Given Lorazepam (Ativan) 2 mg IVP Q1H PRN PRN Reason: Anxiety Last Admin: 03/09/17 12:27 Dose: 2 mg Nicotine (Nicoderm Cq) 1 patch TD DAILY [facility] Last Admin: 03/10/17 11:18 Dose: 1 patch Nystatin (Mycostatin Cream) 1 ea TOP TID [facility] Last Admin: 03/10/17 13:50 Dose: 1 ea Potassium Chloride (K-Dur 20 Meq Er Tab) 40 meq PO DAILY [facility] Last Admin: 03/10/17 11:18 Dose: 40 meq - Labs Labs: 03/10/17 06:47 03/10/17 06:47
[2017-03-10 16:26] VITALS: RESP 20
[2017-03-10] MEDS: MULTIVITAMIN IV SCH (21:59)
[2017-03-10] MEDS: [UNRECOGNIZED DRUG - OTHER] IV SCH (21:59)
[2017-03-10] MEDS: THIAMINE IV SCH (21:59)
[2017-03-10] MEDS: DEXTROSE IV SCH (21:59)
[2017-03-10] MEDS: FOLIC ACID IV SCH (21:59)
[2017-03-11] MEDS: Piperacill/Tazo 3.375gm in Dex 3.375 GM/50 ML BAG IVPB SCH ×3 (04:59→16:59)
[2017-03-11] MEDS ORDERED: Potassium Chloride 20 mEq/15 ml LIQ UD PO STA (07:28)
--- NOTE | 2017-03-11 07:34 | CP.PCM.PN ---
Subjective - Date & Time of Evaluation Date of Evaluation: 03/11/17 Time of Evaluation: 04:50 - Subjective Subjective: clinically same Objective - Vital Signs/Intake and Output Vital Signs (last 24 hours): Temp Pulse Resp BP Pulse Ox 97.9 F 81 20 141/81 98 03/10/17 23:46 03/10/17 23:46 03/10/17 23:46 03/10/17 23:46 03/10/17 23:46 Intake and Output: 03/11/17 03/11/17 06:59 18:59 Intake Total 412 Output Total 700 Balance -288 - Medications Medications: Current Medications Chlordiazepoxide (Librium) 25 mg PO Q8 PRN PRN Reason: Agitation Last Admin: 03/10/17 11:18 Dose: 25 mg Famotidine (Pepcid) 20 mg IVP Q12 [facility] Last Admin: 03/10/17 22:00 Dose: 20 mg Piperacillin Sod/Tazobactam Sod (Zosyn 3.375 Gm Iv Premix) 3.375 gm in 50 mls @ 100 mls/hr IVPB Q6H [facility] Last Admin: 03/11/17 04:59 Dose: 100 mls/hr Thiamine HCl 100 mg/Multivitamins/Vitamin C 10 ml/Folic Acid 1 mg/ Dextrose/ Sodium Chloride 1,011.2 mls @ 100 mls/hr IV Q24H [facility] Last Admin: 03/10/17 21:59 Dose: 100 mls/hr Potassium Chloride/Dextrose/Sod Cl (Potassium Chl 40 Meq In D5-1/2ns) 1,000 mls @ 50 mls/hr IV .Q20H [facility] Last Admin: 03/10/17 13:51 Dose: Not Given Lorazepam (Ativan) 2 mg IVP Q1H PRN PRN Reason: Anxiety Last Admin: 03/11/17 03:53 Dose: 2 mg Nicotine (Nicoderm Cq) 1 patch TD DAILY [facility] Last Admin: 03/10/17 11:18 Dose: 1 patch Nystatin (Mycostatin Cream) 1 ea TOP TID [facility] Last Admin: 03/10/17 17:58 Dose: 1 ea Potassium Chloride (K-Dur 20 Meq Er Tab) 40 meq PO DAILY [facility] Last Admin: 03/10/17 11:18 Dose: 40 meq Potassium Chloride (Potassium Chloride Oral Soln) 20 meq PO STAT STA Stop: 03/11/17 07:29 - Labs Labs: 03/10/17 06:47 03/10/17 06:47 - Constitutional Appears: Well - Head Exam Head Exam: ATRAUMATIC, NORMAL INSPECTION, NORMOCEPHALIC - Eye Exam Eye Exam: EOMI, Normal appearance, PERRL Pupil Exam: NORMAL ACCOMODATION, PERRL - ENT Exam ENT Exam: Mucous Membranes Moist, Normal Exam - Neck Exam Neck Exam: Full ROM, Normal Inspection. absent: Lymphadenopathy - Respiratory Exam Respiratory Exam: Decreased Breath Sounds - Cardiovascular Exam Cardiovascular Exam: REGULAR RHYTHM, +S1, +S2 - GI/Abdominal Exam GI & Abdominal Exam: Soft, Diminished Bowel Sounds - Rectal Exam Rectal Exam: Deferred
[2017-03-11 08:45] LABS: ALKALINE PHOSPHATASE 96 U/L (38-126); ALT/SGPT 24 U/L (21-72); AST/SGOT 21 U/L (17-59); BILIRUBIN,TOTAL 0.4 mg/dL (0.2-1.3); CALCIUM 9.1 mg/dl (8.6-10.4); CARBON DIOXIDE 21 mmol/L (22-30); CHLORIDE 101 mmol/L (98-107); GFR AFRICAN-AMERICAN > 60; GLUCOSE,RANDOM 81 mg/dL (75-110); POTASSIUM 3.5 mmol/L (3.6-5.2); SODIUM 133 mmol/L (132-148); TOTAL PROTEIN 6.5 g/dL (6.3-8.3)
[2017-03-11 08:49] LABS: ALB/GLOB RATIO 0.9 (1.0-2.1); BLOOD UREA NITROGEN 2 mg/dL (9-20)
[2017-03-11 08:51] LABS: BASO # 0.1 K/uL (0.0-0.2); BASO % 1.2 % (0.0-2.0); EOS # 0.3 K/uL (0.0-0.7); EOS % 5.8 % (0.0-4.0); HEMATOCRIT 30.2 % (35.0-51.0); LYMPH # 1.3 K/uL (1.0-4.3); LYMPH % 23.2 % (20.0-40.0); MEAN CELL VOLUME 97.4 fL (80.0-94.0); MEAN CORPUSCULAR HEMOGLOBIN 32.8 pg (27.0-31.0); MEAN CORPUSCULAR HGB CONC 33.7 g/dL (33.0-37.0); MONO # 1.4 K/uL (0.0-0.8); MONO % 24.8 % (0.0-10.0); NRBC % 0.1 % (0.0-2.0); RED CELL DISTRIBUTION WIDTH 13.3 % (11.5-14.5); WHITE BLOOD COUNT 5.6 K/uL (4.8-10.8)
[2017-03-11 08:53] LABS: PLATELET COUNT 300 K/uL (130-400)
[2017-03-11] MEDS: Potassium Chl 40 mEq in D5-1/2 1,000 ML IV SCH (10:18)
[2017-03-11 10:30] LABS: BASOPHIL 1 % (0-2); EOSINOPHIL 8 % (0-4); MYELOCYTE 1 % (0-0); NEUTROPHIL 43 % (50-75); REACTIVE LYMPHOCYTES 1 % (0-0); TOTAL CELLS COUNTED 100
[2017-03-11 10:31] LABS: LARGE PLATELETS PRESENT
[2017-03-11] MEDS: Potassium Chloride 20 mEq ER Tab PO SCH (10:49)
[2017-03-11] MEDS: Nystatin 100,000 Units/gm Cream(15 gm) TOP SCH ×3 (10:50→16:59)
[2017-03-11] MEDS: THIAMINE IV SCH (21:23)
[2017-03-11] MEDS: MULTIVITAMIN IV SCH (21:23)
[2017-03-11] MEDS: [UNRECOGNIZED DRUG - OTHER] IV SCH (21:23)
[2017-03-11] MEDS: DEXTROSE IV SCH (21:23)
[2017-03-11] MEDS: FOLIC ACID IV SCH (21:23)
[2017-03-12] MEDS: Piperacill/Tazo 3.375gm in Dex 3.375 GM/50 ML BAG IVPB SCH ×5 (05:30→22:50)
[2017-03-12] MEDS: Potassium Chloride 20 mEq ER Tab PO SCH (10:19)
[2017-03-12] MEDS: Nystatin 100,000 Units/gm Cream(15 gm) TOP SCH ×3 (10:22→18:44)
--- NOTE | 2017-03-12 13:56 | CP.PCM.PN ---
Subjective - Date & Time of Evaluation Date of Evaluation: 03/12/17 Time of Evaluation: 13:56 Objective - Vital Signs/Intake and Output Vital Signs (last 24 hours): Temp Pulse Resp BP Pulse Ox 98 F 65 20 135/85 97 03/12/17 07:33 03/12/17 07:33 03/12/17 07:33 03/12/17 07:33 03/12/17 07:33 Intake and Output: 03/12/17 03/12/17 06:59 18:59 Intake Total 2000 Output Total 1250 Balance 750 - Medications Medications: Current Medications Chlordiazepoxide (Librium) 25 mg PO Q8 PRN PRN Reason: Agitation Last Admin: 03/11/17 08:07 Dose: 25 mg Famotidine (Pepcid) 20 mg IVP Q12 [facility] Last Admin: 03/12/17 10:19 Dose: 20 mg Piperacillin Sod/Tazobactam Sod (Zosyn 3.375 Gm Iv Premix) 3.375 gm in 50 mls @ 100 mls/hr IVPB Q6H [facility] Last Admin: 03/12/17 12:17 Dose: 100 mls/hr Lorazepam (Ativan) 2 mg IVP Q1H PRN PRN Reason: Anxiety Last Admin: 03/11/17 13:45 Dose: 2 mg Nicotine (Nicoderm Cq) 1 patch TD DAILY [facility] Last Admin: 03/12/17 10:19 Dose: 1 patch Nystatin (Mycostatin Cream) 1 ea TOP TID [facility] Last Admin: 03/12/17 10:22 Dose: Not Given Potassium Chloride (K-Dur 20 Meq Er Tab) 40 meq PO DAILY [facility] Last Admin: 03/12/17 10:19 Dose: 40 meq - Labs Labs: 03/11/17 08:20 03/11/17 08:20
--- NOTE | 2017-03-12 16:08 | PCM.PYCHPN ---
Psychiatric Progress Note - Psychiatric Progress Note Patient seen today, length of contact: 15 min Patient Chief Complaint: I m feeling fine Problems Identified/Issues Discussed: Patient seen and evaluated, chart reviewed and discussed with the nurse. Patient reports improvement in the withdrawal symptoms and reports improvement in his mood and denies any feelings of hopelessness and helplessness. Patient denies any auditory or visual hallucinations, or any psychotic symptoms. He reports improvement in his sleep and appetite. He is taking medications and denies any side effects. Supportive therapy and psychoeducation were given. Medication Change: No Medical Record Reviewed: Yes Mental Status Examination - Cognitive Function Orientation: Person, Place, Situation Memory: Intact Attention: WNL Concentration: WNL Association: WNL Fund of Knowledge: WNL - Mood Mood: Neutral - Affect Affect: Constricted - Speech Speech: Soft - Formal Thought Process Formal Thought Process: No Impairment - Suicidal Ideation Suicidal Ideation: No - Homicidal Ideation Homicidal Ideation: No Goal/Treatment Plan - Goal/Treatment Plan Need for Continued Stay: Discharge may exacerbated symptoms, Severe functional impairment Progress Toward Problem(s) and Goals/Treatment Plan: Patient psychiatrically stable to be discharged and to follow-up with outpatient clinic - Smoking Cessation Smoking Cessation Initiated: No
[2017-03-13] MEDS: Piperacill/Tazo 3.375gm in Dex 3.375 GM/50 ML BAG IVPB SCH ×2 (05:30→16:00)
[2017-03-13] MEDS: Nystatin 100,000 Units/gm Cream(15 gm) TOP SCH ×3 (10:15→18:09)
[2017-03-13] MEDS: Potassium Chloride 20 mEq ER Tab PO SCH (10:15)
--- NOTE | 2017-03-13 16:36 | CP.PCM.PN ---
Subjective - Date & Time of Evaluation Date of Evaluation: 03/13/17 Time of Evaluation: 16:36 Objective - Vital Signs/Intake and Output Vital Signs (last 24 hours): Temp Pulse Resp BP Pulse Ox 98.4 F 80 20 135/83 96 03/13/17 07:42 03/13/17 07:42 03/13/17 07:42 03/13/17 07:42 03/13/17 07:42 Intake and Output: 03/13/17 03/13/17 06:59 18:59 Intake Total 700 500 Output Total 600 Balance 100 500 - Medications Medications: Current Medications Famotidine (Pepcid) 20 mg IVP Q12 [facility] Last Admin: 03/13/17 10:16 Dose: 20 mg Piperacillin Sod/Tazobactam Sod (Zosyn 3.375 Gm Iv Premix) 3.375 gm in 50 mls @ 100 mls/hr IVPB Q6H [facility] Last Admin: 03/13/17 05:30 Dose: 100 mls/hr Lorazepam (Ativan) 2 mg IVP Q1H PRN PRN Reason: Anxiety Last Admin: 03/11/17 13:45 Dose: 2 mg Nicotine (Nicoderm Cq) 1 patch TD DAILY [facility] Last Admin: 03/13/17 10:16 Dose: 1 patch Nystatin (Mycostatin Cream) 1 ea TOP TID [facility] Last Admin: 03/13/17 14:21 Dose: Not Given Potassium Chloride (K-Dur 20 Meq Er Tab) 40 meq PO DAILY [facility] Last Admin: 03/13/17 10:15 Dose: 40 meq - Labs Labs: 03/11/17 08:20 03/11/17 08:20
--- NOTE | 2017-03-13 18:14 | CP.PCM.PN ---
Subjective - Date & Time of Evaluation Date of Evaluation: 03/13/17 Time of Evaluation: 18:13 - Subjective Subjective: Alert and orientedx3, no trmoes or distress. Objective - Vital Signs/Intake and Output Vital Signs (last 24 hours): Temp Pulse Resp BP Pulse Ox 98 F 80 20 135/83 96 03/13/17 15:00 03/13/17 16:32 03/13/17 15:00 03/13/17 16:32 03/13/17 16:32 Intake and Output: 03/13/17 03/13/17 06:59 18:59 Intake Total 700 500 Output Total 600 Balance 100 500 - Medications Medications: Current Medications Famotidine (Pepcid) 20 mg PO BID [facility] Piperacillin Sod/Tazobactam Sod (Zosyn 3.375 Gm Iv Premix) 3.375 gm in 50 mls @ 100 mls/hr IVPB Q6H [facility] Last Admin: 03/13/17 16:00 Dose: Not Given Lorazepam (Ativan) 2 mg IVP Q1H PRN PRN Reason: Anxiety Last Admin: 03/11/17 13:45 Dose: 2 mg Nicotine (Nicoderm Cq) 1 patch TD DAILY [facility] Last Admin: 03/13/17 10:16 Dose: 1 patch Nystatin (Mycostatin Cream) 1 ea TOP TID [facility] Last Admin: 03/13/17 18:09 Dose: Not Given Potassium Chloride (K-Dur 20 Meq Er Tab) 40 meq PO DAILY [facility] Last Admin: 03/13/17 10:15 Dose: 40 meq - Labs Labs: 03/11/17 08:20 03/11/17 08:20 Assessment and Plan - Assessment and Plan (Free Text) Assessment: Patient is seen and examined. Denies tremors ,nausea or vomiting. Cleared by psyche for discharge home. Advised to followup with alcohol rehab or group therapy. D/E DR Carrillo.
[2017-03-14] MEDS: Potassium Chloride 20 mEq ER Tab PO SCH (09:56)
[2017-03-14] MEDS: Nystatin 100,000 Units/gm Cream(15 gm) TOP SCH ×3 (09:58→17:21)
--- NOTE | 2017-03-14 15:04 | CP.PCM.PN ---
Subjective - Date & Time of Evaluation Date of Evaluation: 03/14/17 Time of Evaluation: 15:04 Objective - Vital Signs/Intake and Output Vital Signs (last 24 hours): Temp Pulse Resp BP Pulse Ox 98.2 F 101 H 20 127/84 96 03/14/17 07:56 03/14/17 07:56 03/14/17 07:56 03/14/17 07:56 03/14/17 07:56 Intake and Output: 03/14/17 03/14/17 06:59 18:59 Intake Total 200 Balance 200 - Medications Medications: Current Medications Famotidine (Pepcid) 20 mg PO BID [facility] Last Admin: 03/14/17 09:56 Dose: 20 mg Lorazepam (Ativan) 2 mg IVP Q1H PRN PRN Reason: Anxiety Last Admin: 03/11/17 13:45 Dose: 2 mg Nicotine (Nicoderm Cq) 1 patch TD DAILY [facility] Last Admin: 03/14/17 09:57 Dose: 1 patch Nystatin (Mycostatin Cream) 1 ea TOP TID [facility] Last Admin: 03/14/17 13:57 Dose: Not Given Potassium Chloride (K-Dur 20 Meq Er Tab) 40 meq PO DAILY [facility] Last Admin: 03/14/17 09:56 Dose: 40 meq - Labs Labs: 03/11/17 08:20 03/11/17 08:20
[2017-03-15 07:38] VITALS: BP 142/88; PULSE 73; TEMP 98.5; O2SAT 95
[2017-03-15] MEDS: Potassium Chloride 20 mEq ER Tab PO SCH (09:09)
[2017-03-15] MEDS: Nystatin 100,000 Units/gm Cream(15 gm) TOP SCH ×2 (09:09→14:22)
--- NOTE | 2017-03-15 16:53 | CP.PCM.PN ---
Subjective - Date & Time of Evaluation Date of Evaluation: 03/15/17 Time of Evaluation: 11:00 - Subjective Subjective: Awake, alert, NAD Objective - Vital Signs/Intake and Output Vital Signs (last 24 hours): Temp Pulse Resp BP Pulse Ox 98.5 F 73 20 142/88 95 03/15/17 07:36 03/15/17 07:36 03/15/17 07:36 03/15/17 07:36 03/15/17 07:36 Intake and Output: 03/15/17 03/15/17 06:59 18:59 Intake Total 750 600 Balance 750 600 - Labs Labs: 03/11/17 08:20 03/11/17 08:20 Assessment and Plan - Assessment and Plan (Free Text) Assessment: Patient admitted with alcohol withdrawal, seen and examined. No tremors, no nausea or vomiting. Discharged home again, advised to follow up in the outpatient alcohol rehab. All information given by the social work manager.
== END 2017-03-15 16:21 | disposition home or self-care (01) | DRG 584 ==
LOC: C.ER 20:48 → C.9OBSV 22:28 → C.9I 23:19 → OBSVTOIN 23:19 → C.9I 03-07 21:00 → C.3T 03-10 14:41
PROVIDERS: ADMIT Internal Medicine Nephrology; ATTEND Internal Medicine Nephrology
PROC: HZ2ZZZZ Detoxification Services for Substance Abuse Treatment (ICD-10-PCS; principal; 2017-03-05)
PROC: HZ59ZZZ Individual Psychotherapy for Substance Abuse Treatment, Supportive (ICD-10-PCS; 2017-03-05)
PROC: HZ46ZZZ Group Counseling for Substance Abuse Treatment, Psychoeducation (ICD-10-PCS; 2017-03-05)
DX: A41.9 Sepsis, unspecified organism (principal); J18.9 Pneumonia, unspecified organism; F10.221 Alcohol dependence with intoxication delirium; D69.6 Thrombocytopenia, unspecified; F10.27 Alcohol dependence with alcohol-induced persisting dementia; E83.42 Hypomagnesemia; F10.231 Alcohol dependence with withdrawal delirium; E87.6 Hypokalemia; F17.210 Nicotine dependence, cigarettes, uncomplicated; G40.89 Other seizures; Y90.6 Blood alcohol level of 120-199 mg/100 ml; Z87.81 Personal history of (healed) traumatic fracture; Z91.81 History of falling

== ENCOUNTER 2017-03-23 20:59 | Emergency (ER) | payer OTHER ==
[2017-03-23 20:59] VITALS: BMI 24.4
[2017-03-23 21:54] LABS: BASO % 0.6 % (0.0-2.0); EOS # 0.2 K/uL (0.0-0.7); EOS % 3.7 % (0.0-4.0); HEMATOCRIT 33.3 % (35.0-51.0); LYMPH # 2.4 K/uL (1.0-4.3); LYMPH % 41.3 % (20.0-40.0); MEAN CELL VOLUME 96.8 fL (80.0-94.0); MEAN CORPUSCULAR HEMOGLOBIN 32.6 pg (27.0-31.0); MEAN CORPUSCULAR HGB CONC 33.7 g/dL (33.0-37.0); MEAN PLATELET VOLUME 7.2 fL (7.2-11.7); MONO # 0.7 K/uL (0.0-0.8); MONO % 11.1 % (0.0-10.0); RED CELL DISTRIBUTION WIDTH 13.2 % (11.5-14.5); WHITE BLOOD COUNT 5.9 K/uL (4.8-10.8)
[2017-03-23 22:02] LABS: URINE BILIRUBIN NEGATIVE (NEGATIVE); URINE BLOOD NEGATIVE (NEGATIVE); URINE COLOR Straw (YELLOW); URINE GLUCOSE (UA) NORMAL (Normal); URINE KETONE NEGATIVE (NEGATIVE); URINE LEUKOCYTE ESTERASE NEG Leu/uL (Negative); URINE PROTEIN NEGATIVE (NEGATIVE); URINE UROBILINOGEN NORMAL mg/dL (0.2-1.0); WBC URINE < 1 /hpf (0-5)
[2017-03-23 22:04] LABS: CHLORIDE 101 mmol/L (98-107); POTASSIUM 4.1 mmol/L (3.6-5.2); SODIUM 139 mmol/L (132-148)
[2017-03-23 22:06] LABS: ALB/GLOB RATIO 1.1 (1.0-2.1); ALKALINE PHOSPHATASE 104 U/L (38-126); AST/SGOT 27 U/L (17-59); BILIRUBIN,TOTAL 0.4 mg/dL (0.2-1.3); CARBON DIOXIDE 22 mmol/L (22-30); GFR AFRICAN-AMERICAN > 60; TOTAL PROTEIN 8.3 g/dL (6.3-8.3)
[2017-03-23 22:07] LABS: ALT/SGPT 34 U/L (21-72); BLOOD UREA NITROGEN 3 mg/dL (9-20); CALCIUM 9.4 mg/dl (8.6-10.4); GLUCOSE,RANDOM 82 mg/dL (75-110)
--- NOTE | 2017-03-23 22:38 | C.PDOC ---
History Of Present Illness 41 year old male who presents to the ER intoxicated and requesting a place to stay the night. Patient is known to be homeless and claims he is close to having a seizure. 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 Patient was admitted from 03/04- for ETOH abuse and was detoxed by medicine and psych; however, upon discharge patient began drinking again. Denies fever or chills Time Seen by Provider: 03/23/17 21:15 Chief Complaint (Nursing): Medical Clearance History Per: Patient History/Exam Limitations: no limitations Onset/Duration Of Symptoms: Days Current Symptoms Are (Timing): Still Present Recent travel outside of the [place]: No Past Medical History Reviewed: Historical Data, Nursing Documentation, Vital Signs Vital Signs: Last Vital Signs Temp 97.9 F 03/23/17 22:51 Pulse 88 03/23/17 22:51 Resp 19 03/23/17 22:51 BP 101/57 L 03/23/17 22:51 Pulse Ox 100 03/24/17 01:07 - Medical History PMH: Arthritis (R THR), Fractures, Seizures - [facility] Procedures ALCOHOL DETOXIFICATION (12/30/14) DETOXIFICATION SERVICES FOR SUBSTANCE ABUSE TREATMENT (03/04/17) DRAINAGE OF R PLEURAL CAV WITH DRAIN DEV, PERC APPROACH (05/24/16) DRAINAGE OF RIGHT LOWER LOBE BRONCHUS, ENDO, DIAGN (05/24/16) GROUP AUTOMATIC PINSETTER MECHANIC FOR SUBSTANCE ABUSE TREATMENT, PSYCHOEDUCATION (03/04/17) INDIV PSYCHOTHERAPY FOR SUBSTANCE ABUSE TREATMENT, SUPPORT (03/04/17) INFLUENZA VACCINATION (05/29/14) INSERTION OF ENDOTRACHEAL AIRWAY INTO TRACHEA, VIA OPENING (05/24/16) INSERTION OF INFUSION DEV INTO SUP VENA CAVA, PERC APPROACH (05/24/16) INTRODUCTION OF NUTRITIONAL INTO UP GI, VIA OPENING (05/24/16) RESPIRATORY VENTILATION, GREATER THAN 96 CONSECUTIVE HOURS (05/24/16) VACCINATION NEC (05/29/14) Family History: States: Unknown Family Hx - Social History Hx Tobacco Use: Yes Hx Alcohol Use: Yes Hx Substance Use: No - Immunization History Hx Tetanus Toxoid Vaccination: No Hx Influenza Vaccination: Yes Hx Pneumococcal Vaccination: Yes Review Of Systems Constitutional: Negative for: Fever, Chills Gastrointestinal: Negative for: Nausea, Vomiting Neurological: Negative for: Seizures Physical Exam - Physical Exam Appears: Non-toxic, No Acute Distress, Other (ETOH on breath, tall thin) Skin: Normal Color, Warm, Dry Head: Atraumatic, Normacephalic Oral Mucosa: Moist Chest: Symmetrical, No Tenderness Cardiovascular: Rhythm Regular, No Murmur Respiratory: Normal Breath Sounds, No Rales, No Rhonchi, No Wheezing Gastrointestinal/Abdominal: Soft, No Tenderness Neurological/Psych: Oriented x3, Normal Speech, Normal Cognition ED Course And Treatment - Laboratory Results Result Diagrams: 03/23/17 21:49 03/23/17 21:49 Lab Interpretation: Normal ECG: Interpreted By Me ECG Rhythm: Sinus Rhythm ECG Interpretation: Normal Rate From EC O2 Sat by Pulse Oximetry: 100 - Radiology CXR: Interpreted by Me CXR Interpretation: Yes: No Acute Disease Progress Note: EKG and CXR ordered. Reevaluation Time: 22:38 Reassessment Condition: Improved Medical Decision Making Medical Decision Making: admits to continued alcohol abuse despite inpatient detox admitted from 03/04/17- 03/15/17 Admits homeless and wants inpatient place to stay, no detox available tonight and would not qualify since just d/c about 1 week ago Probably NOT impending alcohol withdrawal seizures as pt actively intoxicated now, by admission Cerebral atrophy and enlarged ventricles stable from head CT 06/07 and unchanged from 01/05, no indication to repeat head CT tonight suspect malingering, local group home placement educated. Disposition Doctor Will See Patient In The: Office Counseled Patient/Family Regarding: Studies Performed, Diagnosis - Disposition Referrals: [facility] [Outside] [facility] [Outside] [facility] [Outside] Disposition: HOME/ ROUTINE Disposition Time: 22:40 Condition: GOOD Additional Instructions: seek AA and outpatient detox programs. follow-up with our [facility] or [facility] Your head CT shows advanced brain atrophy more consistent with alcohol abuse and no chronic brain damage noted. These brain issues are certainly made worse by continued alcohol abuse. Seek nightly [facility] placement. Instructions: Abuse of Alcohol (ED) Forms: [facility] (Latvian) - Clinical Impression Clinical Impression: Alcohol abuse - Scribe Statement The provider has reviewed the documentation as recorded by the Scribe Emiliano Moralez All medical record entries made by the Scribe were at my direction and personally dictated by me. I have reviewed the chart and agree that the record accurately reflects my personal performance of the history, physical exam, medical decision making, and the department course for this patient. I have also personally directed, reviewed, and agree with the discharge instructions and disposition.
[2017-03-23 22:52] VITALS: BP 101/57; PULSE 88; RESP 19; TEMP 97.9
[2017-03-24 01:07] VITALS: O2SAT 100
--- NOTE | 2017-03-24 11:36 | RAD ---
PROCEDURE: CHEST RADIOGRAPH, 1 VIEW HISTORY: SOB COMPARISON: Portable chest 03/08/2017 FINDINGS: LUNGS: Trace residual right pleural effusion identified with no infiltrate bilaterally. No left pleural effusion. No pneumothorax pre PLEURA: As above CARDIOVASCULAR: Normal. OSSEOUS STRUCTURES: No significant abnormalities. VISUALIZED UPPER ABDOMEN: Normal. OTHER FINDINGS: None. IMPRESSION: Resolution of prior right-sided infiltrate with trace right pleural effusion identified at this time. Left lung is clear once again.
--- NOTE | 2017-04-06 20:42 | CARD ---
APPROVED REPORT EKG Measurement Heart [id number] <Conclusion> Normal sinus rhythm Indeterminate axis lae Borderline ECG
== END 2017-03-23 22:52 | disposition home or self-care (01) ==
LOC: C.ER 20:59
DX: F10.10 Alcohol abuse, uncomplicated (principal); R56.9 Unspecified convulsions